=== PATIENT | female | born 1935 | race Caucasian/White ===

== ENCOUNTER 2020-04-02 17:08 | Emergency (ER) | payer MEDICARE, SELFPAY ==
[2020-04-02 17:43] VITALS: BP 105/49; PULSE 100; RESP 15; TEMP 36.6; O2SAT 96; BMI 35.3
--- NOTE | 2020-04-02 18:41 | ED.GENADULT ---
HPI - General Adult General Chief complaint: Overdose Stated complaint: MEDICATION OVERDOSE Time Seen by Provider: 04/02/20 18:36 Source: patient Mode of arrival: ambulatory Limitations: no limitations History of Present Illness HPI narrative: patient states was to take 2.5 mg of Coumadin however misunderstood and took 25 mg of Coumadin approximately 3 hours ago. Patient did not do this For suicidal or homicidal ideations. Patient did not fall. patient denies blood in stool denies vomiting or denies blood in urine Onset (ago): hour(s) ( 3 hours) Severity: mild Related Data Allergies Allergy/AdvReac Type Severity Reaction Status Date / Time amlodipine Allergy Unknown Verified 02/04/20 00:00 lisinopril Allergy Unknown Verified 02/04/20 00:00 acetaminophen AdvReac Unknown VOMITING Unverified 03/18/20 14:56 [From Tylenol-Codeine] Codeine Phosphate Allergy Unknown vomiting Uncoded 02/25/20 00:00 Codeine Sulfate Allergy Unknown Uncoded 02/04/20 00:00 From Tylenol-Codeine AdvReac Unknown VOMITING Uncoded 03/18/20 14:56 Review of Systems Review of Systems: Constitutional : No Weight loss, No Fever, No Chills, No Night Sweats, No Fatigue, No Malaise ENT/Mouth : No Hearing loss, No Ear Pain, No Nasal Congestion, No Sinus Pain, No Hoarseness, No sore throat, No Rhinorrhea, No Swallowing Difficulty Eyes: No Eye Pain, No Swelling, No Redness, No Foreign Body, No Discharge, No Vision Changes Cardiovascular : No Chest Pain, No SOB, No Dyspnea on Exertion, No Orthopnea, No Edema, No Palpitations Respiratory : No Cough, No Sputum, No Wheezing, No Smoke Exposure, No Dyspnea Gastrointestinal : No Nausea, No Vomiting, No Diarrhea, No Constipation, No abdominal Pain, No Hematochezia, No Melena Genitourinary : no irregular bleeding, No Dysuria, No Urinary Frequency, No Hematuria, No Urinary Incontinence, No Urgency, No Flank Pain, No Urinary Flow Changes, No Hesitancy Musculoskeletal : No joint pain, No Myalgias, No Joint Swelling Skin : No Skin Lesions, No rash Neuro : No Weakness, No Numbness, No Paresthesias, No Loss of Consciousness, No Dizziness, No Headache Psych : No Anxiety/Panic, No Depression, No SI/HI/AH/VH, No Social Issues, Heme/Lymph: No Bruising, No Bleeding,No Lymphadenopathy Endocrine : No Polyuria, No Polydipsia, No Temperature Intolerance [facility] Past Medical History Medical History Arrhythmia Cholecystectomy planned High cholesterol HTN (hypertension) Hypothyroid Social History Social History Smoking Status: Never smoker Smoked in Last 30 Days: No Use of substances other than those prescribed or required for medical reasons: No Advance Directives: No Advance Directives Information Provided: Yes Physical Exam Vital Signs and I&O and Narrative: Vital Signs and I&O: Vital Signs Temp 97.9 F 04/02/20 18:50 Pulse 83 04/02/20 18:50 Resp 16 04/02/20 18:50 BP 125/65 04/02/20 18:50 Pulse Ox 98 04/02/20 18:50 Intake & Output 04/02/20 04/02/20 04/03/20 06:59 18:59 06:59 Weight 93.44 kg Body Mass Index 35.3 vital signs reviewed HENMT: Head: Yes normal to inspection Eyes: General: appearance normal, both eyes and all related structures Visual Izaguirre: normal visual izaguirre by confrontation Neck: Neck: Yes normal visual inspection Chest: Chest palpation & inspection: normal inspection of the chest, normal palpation of entire chest wall, normal inspection of the chest and no crepitus Resp: Effort & Inspection: normal respiratory effort, not able to speak in complete sentences, normal respiratory pattern, no audible wheezes and respiratory effort not decreased Cardio: Jugular venous distension: no JVD Palpation: normal PMI Rate: regular rate GI: Inspection: Yes normal to inspection Back/Spine/Pelvis: Thoracic/Lumbar Spine: thoracic and lumbar spine normal to inspection Skin: Rashes: no rashes Neuro: Cranial nerves: Yes CN's II-XII intact bilaterally Extrem: Right upper extremity: normal to inspection Psych: Appearance: grossly normal Course Reevaluation(s) Reevaluation #1: patient INR within normal limits. Patient did take Coumadin several hours before coming in. Usually takes about 48 hours in order to change the INR. No active bleeding. Patient says safe to go home. I discussed the patient need for return to the emergency department in 48 hours which is this Sunday to the emergency department for repeat INR. Patient agrees Time: 20:13 Medical Decision Making Lab Data Labs: Lab Results 04/02/20 04/02/20 04/02/20 Range/Units 19:01 19:30 20:06 PT 27.3 H (10.8-13.0) SEC Whole Blood PT 26.9 H (11.1-13.5) sec INR 2.3 H (0.9-1.1) Whole Blood INR 2.2 H (0.9-1.1) Urine Color YELLOW Urine Appearance CLEAR Urine pH 5.5 (5.0-8.0) Ur Specific Page 1.010 (1.005-1.025) Urine Protein NEG (NEG-TRACE) MG/DL Urine Glucose (UA) NEG (NEG) MG/DL Urine Ketones NEG (NEG) MG/DL Urine Blood NEG (NEG) Urine Nitrite NEG (NEG) Ur Leukocyte Esterase NEG (NEG) Discharge Plan Discharge Clinical Impression: Accidental drug ingestion Instructions: Medication Safety for Older Adults (ED), Warfarin (By mouth) Additional Instructions: you must return to the emergency department this Sunday on April 04 for repeat INR blood work Referrals: Lex Velazco MD [Primary Care Provider] - 3 days
[2020-04-02 18:50] VITALS: BP 125/65; PULSE 83; RESP 16; TEMP 36.6; O2SAT 98
--- NOTE | 2020-04-02 18:58 | PC.NURSE ---
ASSUMED CARE OF PATIENT FROM [facility]. PATIENT TOOK 25 MG OF COUMADIN INSTEAD OF 5 MG TODAY AND 5 MG TOMORROW. PATIENT MISUNDERSTOOD DIRECTIONS FROM PHYSICIANS OFFICE AND TOOK TOO MUCH MEDICATION. RESPIRATORY RATE EQUAL AND UNLABORED
[2020-04-02 19:13] LABS: Glucose Urine UA NEG (NEG); Leukocyte Esterase Urine NEG (NEG); Nitrite Urine NEG (NEG); PH 5.5 (5.0-8.0); Urine Blood NEG (NEG); Urine Ketones NEG (NEG); Urine Protein NEG (NEG-TRACE)
[2020-04-02 19:14] LABS: Appearance Urine CLEAR; Color Urine YELLOW
[2020-04-02 20:00] VITALS: BP 140/65; PULSE 75; RESP 16; TEMP 36.4; O2SAT 95
[2020-04-02 20:03] LABS: INTERNATIONAL NORM RATIO 2.3 (0.9-1.1); Prothrombin Time 27.3 SEC (10.8-13.0)
[2020-04-02 20:10] LABS: Prothrombin Time Whole Bld POC 26.9 sec (11.1-13.5); ~PT, ~INR - Anti Coag Clinic 2.2 (0.9-1.1)
--- NOTE | 2020-04-02 20:17 | PC.NURSE ---
PATIENT WAS ASSISTED TO GET DRESSED AND AMBULATED TO BATHROOM BY THIS PCT.
== END 2020-04-02 20:44 | disposition home or self-care (01) ==
PROVIDERS: Emergency Provider Emergency Medicine; PCP Internal Medicine
DX: T45.511A Poisoning by anticoagulants, accidental (unintentional), initial encounter (principal); Y92.009 Unspecified place in unspecified non-institutional (private) residence as the place of occurrence of the external cause; I10 Essential (primary) hypertension; Z79.01 Long term (current) use of anticoagulants; Z79.899 Other long term (current) drug therapy
CPT/HCPCS: 36415; 81003; 85610; 99284

== ENCOUNTER 2020-04-04 09:30 | Inpatient (IN) | payer MEDICARE, SELFPAY ==
[2020-04-04] VITALS (7 sets, daily range): BP systolic 87–139; BP diastolic 44–78; PULSE 74–105; RESP 16–22; TEMP 35.8–36.4; O2SAT 95–99; BMI 34.2
--- NOTE | 2020-04-04 | CT_ITS ---
EXAMINATION: CT HEAD WITHOUT CONTRAST CLINICAL INFORMATION: Headache. Elevated INR. COMPARISON: None TECHNIQUE: Contiguous axial imaging was performed from the skull base to vertex without intravenous administration of contrast. This CT examination was performed using dose optimization techniques as appropriate, variously including the following: *Automated exposure control *Adjustment of mA and/or kV according to patient size (this includes techniques or standardized protocols for targeted exams where dose is matched to indication/reason for exam; i.e. extremities or head) *Use of iterative reconstruction technique DLP: 628 mGy-cm FINDINGS: There is no evidence of an extra-axial collection. There is no evidence of intra or extra-axial hemorrhage. The ventricles and extra-axial CSF spaces are prominent. There is nonspecific periventricular white matter disease. No mass, mass effect or infarct is seen. There is increased sclerosis of the bilateral frontal bones suggestive of benign frontal hyperostosis interna. There is increased sclerosis of the right mastoid air cells. No fluid or soft tissue in the right mastoid air cells is seen. There is mild membranous soft tissue thickening in the floor of the left maxillary sinus. Paranasal sinuses, mastoid air cells and middle ears are otherwise clear. IMPRESSION: Mild generalized atrophy and nonspecific periventricular white matter disease. No acute findings.
--- NOTE | 2020-04-04 09:57 | ED.WEAKNESS ---
HPI - Weakness General Chief complaint: Recheck/Abnormal Lab/Rx Stated complaint: abnormal lab Time Seen by Provider: 04/04/20 09:47 Related Data Allergies Allergy/AdvReac Type Severity Reaction Status Date / Time amlodipine Allergy Unknown Verified 02/04/20 00:00 lisinopril Allergy Unknown Verified 02/04/20 00:00 acetaminophen AdvReac Unknown VOMITING Unverified 03/18/20 14:56 [From Tylenol-Codeine] Codeine Phosphate Allergy Unknown vomiting Uncoded 02/25/20 00:00 Codeine Sulfate Allergy Unknown Uncoded 02/04/20 00:00 From Tylenol-Codeine AdvReac Unknown VOMITING Uncoded 03/18/20 14:56 Review of Systems Review of Systems: Yes all other systems are reviewed and are negative Constitutional: Constitutional: Reports malaise Eyes: Eyes: Reports no additional eye complaints ENT: Reports system reviewed and no additional complaints, except as documented Cardiovascular: Cardiovascular: Reports no additional cardiovascular complaints Respiratory: Respiratory: Reports no additional respiratory complaints Genitourinary: Genitourinary: Reports no additional female genitourinary complaints Musculoskeletal: Musculoskeletal: Reports no additional musculoskeletal complaints [facility] Past Medical History Medical History Arrhythmia Cholecystectomy planned High cholesterol HTN (hypertension) Hypothyroid Social History Social History Alcohol intake: never Smoking Status: Never smoker Use of substances other than those prescribed or required for medical reasons: No Advance Directives: No Advance Directives Information Provided: No Physical Exam Vital Signs and I&O and Narrative: Vital Signs and I&O: Vital Signs Temp 97.5 F 04/04/20 09:48 Pulse 105 H 04/04/20 09:48 Resp 16 04/04/20 09:48 BP 139/78 04/04/20 09:48 Pulse Ox 96 04/04/20 09:48 Intake & Output 04/03/20 04/04/20 04/04/20 18:59 06:59 18:59 Weight 90.591 kg Body Mass Index 34.2 Const: General: no acute distress Orientation/consciousness: oriented to person, oriented to place, oriented to time and patient oriented x3 HENMT: Head: Yes normal to inspection Ears: hearing grossly normal bilaterally Eyes: General: appearance normal, both eyes and all related structures Conjunctivae: conjunctival abnormal ( Pallor conjunctiva) bilateral Sclerae: scleral abnormal ( pale) bilateral Neck: Neck: Yes normal visual inspection Thyroid: Thyroid normal Chest: Chest palpation & inspection: normal inspection of the chest Breast/axilla inspection: normal inspection of the breasts Resp: Effort & Inspection: normal respiratory effort Auscultation: clear to auscultation bilaterally Cardio: Jugular venous distension: no JVD Rate: regular rate Rhythm: abnormal rhythm regularly irregular GI: Inspection: Yes normal to inspection Neuro: General: oriented to person, oriented to place, oriented to time and patient oriented x3 Cognition (Neuro): normal cognition Extrem: General: Yes normal to inspection and Yes full ROM Course Course Hospital Course: 84-year-old female takes 5 mg of Coumadin for atrial fibrillation, patient yesterday though by accident 25 mg of Coumadin, patient was seen and evaluated in the emergency department yesterday had INR within normal level, patient returned today for recheck INR patient found to have INR of 14 with no active bleeding, patient received 10 mg of vitamin K p.o.. Will admit the patient for further INI serial check then resume the patient back on Coumadin. MDM - Weakness MDM Narrative Medical decision making narrative: Super therapeutic Coumadin due to overdosed accidentally on Coumadin. Medical Records Attestation: I reviewed the patient's medical records. Lab Data Result diagrams: 04/04/20 10:11 04/04/20 10:11 Labs: Lab Results 04/04/20 04/04/20 04/04/20 Range/Units 10:11 10:11 10:11 WBC 13.1 H (4.8-10.8) X10*3/uL RBC 4.30 (4.20-5.50) X10*6/uL Hgb 12.6 (12.0-16.0) g/dl Hct 37.6 (37-47) % MCV 87.4 (80-98) fL MCH 29.3 (27.0-33.0) pg MCHC 33.5 (31.0-35.0) g/dl RDW 17.9 H (11.0-16.0) % Plt Count 360 (160-400) X10*3/uL MPV 11.4 (9.4-12.3) fL Absolute Nucleated RBC 0.000 (0.0-0.012) X10*3/uL Nucleated RBC % (auto) 0.0 (0.0-0.2) /100WBC PT 182.2 H D (10.8-13.0) SEC INR 14.9 H* D (0.9-1.1) APTT 46.8 H (24.1-38.0) SEC Sodium 136 (135-145) mmol/L Potassium 5.2 H (3.3-5.1) mmol/l Chloride 97 (96-108) mmol/L Carbon Dioxide 25 (22-29) mmol/L Anion Gap 19 (12-20) BUN 13 (9-16) mg/dL Creatinine 0.89 (0.5-1.4) mg/dL Estim Creat Clear Calc 51.3 Estimated GFR > 60 Random Glucose 111 (60-115) mg/dL Calcium 8.5 (8.4-10.2) mg/dL Total Bilirubin 4.9 H (0.0-1.0) mg/dL Direct Bilirubin 3.3 H (0.0-0.5) mg/dL AST 118 H (5-31) U/L ALT 70 H (0-31) U/L Alkaline Phosphatase 438 H (39-117) U/L Total Protein 6.8 (6.5-8.0) g/dL Albumin 3.1 L (3.5-5.0) g/dL Lipase 288 H (8-78) U/L Discharge Plan Discharge Clinical Impression: Warfarin-induced coagulopathy Patient Disposition: Admitted As Inpatient
[2020-04-04 10:37] LABS: Hematocrit 37.6 % (37-47); Hemoglobin 12.6 g/dl (12.0-16.0); Mean Corpuscular HGB Conc 33.5 g/dl (31.0-35.0); Mean Corpuscular Hemoglobin 29.3 pg (27.0-33.0); Mean Corpuscular Volume 87.4 fL (80-98); Mean Platelet Volume 11.4 fL (9.4-12.3); Platelet Count 360 X10*3/uL (160-400); Red Cell Distribution Width 17.9 % (11.0-16.0); White Blood Count 13.1 X10*3/uL (4.8-10.8)
[2020-04-04 10:46] LABS: Partial Thromboplastin Time 46.8 SEC (24.1-38.0)
[2020-04-04 10:50] LABS: Prothrombin Time 182.2 SEC (10.8-13.0)
[2020-04-04 10:55] LABS: INTERNATIONAL NORM RATIO 14.9 (0.9-1.1)
[2020-04-04] MEDS: Ibuprofen 600 MG TABLET PO (10:55)
[2020-04-04 11:08] LABS: Anion Gap 19 (12-20); Blood Urea Nitrogen 13 mg/dL (9-16); Carbon Dioxide 25 mmol/L (22-29); Chloride 97 mmol/L (96-108); Glucose Random 111 mg/dL (60-115); Potassium 5.2 mmol/l (3.3-5.1); Sodium 136 mmol/L (135-145); Total Protein 6.8 g/dL (6.5-8.0)
[2020-04-04 11:09] LABS: Alanine Aminotransferase 70 U/L (0-31); Albumin Level 3.1 g/dL (3.5-5.0); Alkaline Phosphatase 438 U/L (39-117); Aspartate Amino Transferase 118 U/L (5-31); Bilirubin Direct 3.3 mg/dL (0.0-0.5); Bilirubin Total 4.9 mg/dL (0.0-1.0); Calcium 8.5 mg/dL (8.4-10.2); Creatinine Clr Calc Pharmacy 51.3; Estimated Glomerular Filt Rate > 60
[2020-04-04 11:21] LABS: Lipase 288 U/L (8-78)
[2020-04-04] MEDS: Phytonadione (Vit K1) Oral 10 MG/ML AMPUL PO ×2 (12:59→13:01)
--- NOTE | 2020-04-04 13:40 | PM.EVENT ---
Event Note Event Note: Patient seen and examined independently and was present during berger portion of E/M service. Agree with midlevel's history, physical, assessment, and plan. 84-year-old female sent in for elevated INR no obvious signs of bleeding status post vitamin K monitor CBC and INR
--- NOTE | 2020-04-04 14:12 | P.HPIM_ITS ---
History of Present Illness Date of Service: 04/04/20 Chief Complaint: abnormal labs This is an 84-year-old female who returns to the emergency department for follow-up of abnormal labs. She was seen in the ED on April 02 after active mentally taking 25 mg of Coumadin instead of 2.5. her INR at that time was within normal limits. She was asked to return for INR recheck today. Today her INR was 14.9. She had no evidence of bleeding. She did have complaints of headache. Brain CT done showed no evidence of intracranial bleed. The remainder of her labs were at her baseline. Decision was made to admit her overnight for observation. Of note patient had recent admission on March 10 for acute on chronic cholecystitis. Cholecystostomy tube was placed by IR guidance on March 11. She had an uncomplicated hospital course was discharged home with visiting nurses on March 13. She was discharged with a course of Augmentin. She had been feeling well until SundayMarch 19. She returned to the ED with decreased appetite, decreased p.o. intake and generalized pruritus. Lab work was significant for acute kidney injury with a serum creatinine of 2.65, hypokalemia and lactic acidosis. Her LFTs were noted to be significantly elevated in obstructive pattern. She underwent a CAT scan of the abdomen which showed dilated and inflammatory changes and thickening around the gallbladder causing likely partial CBD obstruction. An ERCP was attempted but unable to be completed due to difficult anatomy. She underwent an MRCP which showed questionable stricture. She was transferred to [facility] where an ERCP was attempted but also unable to be completed. She underwent IR biliary drainage and was discharged home on March 31. Review of Systems Review of Systems: Yes all other systems are reviewed and are negative Constitutional: Constitutional: Denies chills and Denies fever(s) Cardiovascular: Cardiovascular: Denies chest pain Respiratory: Respiratory: Denies cough [facility] Medical History (Updated 04/04/20 @ 14:25 by MATHEUS Marvin) Atrial fibrillation Breast cancer Cholecystectomy planned Cholecystostomy tube dysfunction Diastolic CHF High cholesterol HTN (hypertension) Hypothyroid NSTEMI (non-ST elevated myocardial infarction) Stomach cancer Uterine cancer Pertinent family history: father - lung cancer sister- ovarian cancer Surgical History (Updated 04/04/20 @ 14:22 by MATHEUS Marvin) History of cardiac catheterization History of partial gastrectomy S/P breast lumpectomy S/P TALYA-BSO (total abdominal hysterectomy and bilateral salpingo-oophorectomy) Social History Alcohol intake: never Smoking Status: Never smoker Use of substances other than those prescribed or required for medical reasons: No Advance Directives: No Advance Directives Information Provided: No Meds Allergies Allergy/AdvReac Type Severity Reaction Status Date / Time amlodipine Allergy Unknown Verified 02/04/20 00:00 lisinopril Allergy Unknown Verified 02/04/20 00:00 acetaminophen AdvReac Unknown VOMITING Unverified 03/18/20 14:56 [From Tylenol-Codeine] Codeine Phosphate Allergy Unknown vomiting Uncoded 02/25/20 00:00 Codeine Sulfate Allergy Unknown Uncoded 02/04/20 00:00 From Tylenol-Codeine AdvReac Unknown VOMITING Uncoded 03/18/20 14:56 Home Medications Medication Instructions Recorded Confirmed Type atorvastatin 1 tab PO BEDTIME 04/04/20 04/04/20 History calcipotriene TOPICAL 04/04/20 History furosemide 1 tab PO DAILY 04/04/20 04/04/20 History metoprolol succinate 1 tab PO DAILY 04/04/20 04/04/20 History warfarin PO 04/04/20 History Physical Exam Vital Signs and Narrative: Vital Signs: Last Vital Signs Temp 97.5 F 04/04/20 09:48 Pulse 105 H 04/04/20 09:48 Resp 16 04/04/20 09:48 BP 139/78 04/04/20 09:48 Pulse Ox 96 04/04/20 09:48 Body Mass Index 34.2 Const: Nutritional Appearance: well nourished Orientation/consciousness: patient oriented x3 HENMT: Head: Yes normocephalic and Yes atraumatic Eyes: Sclerae: sclerae normal Chest: Chest palpation & inspection: normal inspection of the chest Resp: Effort & Inspection: normal respiratory effort and no respiratory distress Auscultation: clear to auscultation bilaterally Cardio: Rate: regular rate Rhythm: regular rhythm GI: Inspection: Yes other (RUQ GB drain, not draining; biliary drain with coffee colored drainage) Palpation (GI): Soft to palpation and nontender Skin: General skin exam: no rashes or lesions noted and jaundice Neuro: General: patient oriented x3 Cranial nerves: Yes CN's II-XII intact bilaterally and Yes Bilaterally intact EOM present Extrem: General: Yes normal to inspection Results Labs Labs: Laboratory Tests 04/04/20 04/04/20 04/04/20 10:11 10:11 10:11 WBC 13.1 H RBC 4.30 Hgb 12.6 Hct 37.6 MCV 87.4 MCH 29.3 MCHC 33.5 RDW 17.9 H Plt Count 360 MPV 11.4 Absolute Nucleated RBC 0.000 Nucleated RBC % (auto) 0.0 PT 182.2 H D INR 14.9 H* D APTT 46.8 H Sodium 136 Potassium 5.2 H Chloride 97 Carbon Dioxide 25 Anion Gap 19 BUN 13 Creatinine 0.89 Estim Creat Clear Calc 51.3 Estimated GFR > 60 Random Glucose 111 Calcium 8.5 Total Bilirubin 4.9 H Direct Bilirubin 3.3 H AST 118 H ALT 70 H Alkaline Phosphatase 438 H Total Protein 6.8 Albumin 3.1 L Lipase 288 H Assessment and Plan (1) Warfarin-induced coagulopathy: Status: Acute this is a 84-year-old female with history of atrial fibrillation on Coumadin, dyslipidemia, diastolic CHF who presents for INR check after accidentally of around eddy taking wrong dose of Coumadin. Coumadin coagulopathy due to accidental ingestion of wrong dose no active bleeding noted s/p 10 mg p.o. vitamin K -follow INR -hold Coumadin atrial fibrillation rate controlled - continue metoprolol - hold Coumadin for elevated INR diastolic CHF euvolemic - continue home dose Lasix HLD Hold statin Elevated LFTs Trending down r/t recent cholecystitis/biliary obstruction code status- DNR this case was discussed with Dr. Hills
[2020-04-04] MEDS: Pantoprazole Sodium 40 MG/10 ML VIAL IVPUSH (17:08)
[2020-04-04] MEDS: Lactated Ringers 1,000 ML 999 ML IVCONT ×2 (17:09→20:26)
[2020-04-04] MEDS: 0.9 % Sodium Chloride Flush 3 ML SYRINGE 2 ML IVFLUSH ×2 (17:11→23:46)
--- NOTE | 2020-04-04 18:48 | PC.NURSE ---
Addendum entered by Kaykay Kent RN 04/04/20 19:59: KCentra & Vit K ordered for Pt. Pt refusing all IV medications. aware of Pt medication refusal. No new orders at this time. Phlebotomy obtained labs, results pending. Report given to oncangie RN. Original Note: Pt arrived to [place] [id number] at 1815. Pt refusing all treatment. MD notified. MD's in to speak with Pt. Pt agreeable at this time to have phlebotomy come back to draw labs. Call out to phlebotomy. Will continue to monitor.
--- NOTE | 2020-04-04 18:50 | PC.NURSE ---
1645- PT ADMITTED TO MED/SURG, IMMEDIATELY HAD BLOODY BM WITH LARGE BLOOD CLOTS. PER HOUSEKEEPER HOME PT HAD ANOTHER BLOODY BM PRIOR TO COMING TO UNIT. PT STATES HAS VOMITED BLOOD, NOT SEEN BY THIS RN. PT FEELS WEAK AND DIZZY. VITALS CHECKED. BP 99/55, PULSE 74, REMAINING WNL. ALICE PELLETIER PA AND DR. PEÑA MADE AWARE. DR. PEÑA AT BEDSIDE. PT TO BE TRANSFERRED TO [facility]. 1710- PT BP RECHECKED 87/44, PULSE 84. LR BOLUS STARTED. PT GIVEN IV PROTONIX PER DR. PEÑA. ICU PA AT BEDSIDE TO ASSESS PT. PT REFUSING ICU CARE, CENTRAL LINE. ICU PA TO ATTEMPT TO GET LARGER GAUGE IV WITH ULTRASOUND. 1735- BP 101/53 PULSE 86. PT'S AND DAUGHTER CALLED BY THIS RN ABOUT PT STATUS. REPORT GIVEN TO [facility] NURSE. 1800- ICU PA UNABLE TO OBTAIN ADDITIONAL IV. PT VERY UPSET, CRYING OUT. REFUSING ALL CARE. DOES NOT WANT BLOOD DRAW, NO MORE IV ATTEMPTS. PT STATES SHE 'JUST WANTS SOMETHING TO PUT HER TO SLEEP'. PT TRANSFERRED TO [facility] BY NURSING FOREIGN CORRESPONDENT. THIS RN CALLED PT DAUGHTER ONCE AGAIN TO UPDATE ON STATUS OF PT AND HER WANTING TO REFUSE ALL CARE. PT'S DAUGHTER TO COME SEE PT, NURSING FOREIGN CORRESPONDENT AWRE. [facility] NURSE UPDATED.
[2020-04-04 19:55] LABS: Hematocrit 31.7 % (37-47); Hemoglobin 10.4 g/dl (12.0-16.0); Mean Corpuscular HGB Conc 32.8 g/dl (31.0-35.0); Mean Corpuscular Hemoglobin 29.3 pg (27.0-33.0); Mean Corpuscular Volume 89.3 fL (80-98); Mean Platelet Volume 11.2 fL (9.4-12.3); Platelet Count 284 X10*3/uL (160-400); Red Blood Count 3.55 X10*6/uL (4.20-5.50); White Blood Count 12.5 X10*3/uL (4.8-10.8)
[2020-04-04] MEDS: Atorvastatin Calcium 40 MG TABLET PO (20:35)
[2020-04-04] MEDS: Acetaminophen 325 MG TABLET 650 MG PO (20:35)
[2020-04-05] VITALS (15 sets, daily range): BP systolic 99–147; BP diastolic 50–74; PULSE 83–108; RESP 16–20; TEMP 36–37.1; O2SAT 91–97; BMI 34.2
--- NOTE | 2020-04-05 01:52 | PM.EVENT ---
Event Note Event Note: Notified patient is refusing at present Fresh Frozen plasma transfusion. I personally talked to the patient regarding current medical status and the need for blood transfusion at present. Patient verbalizes and understands benefits as well as risks involved if not getting the transfusion. Patient at present reports that does not wants any transfusion, does not wants any more blood draws and just wants to be left alone in the room. Curent mental status is awake, alert, oriented x 3. Given patient has mental capacity to take decision at present will hold off on the transfusion but will try again in the am to talk to the patient regarding the need for treatment.
[2020-04-05] MEDS: Morphine Sulfate 2 MG/ML CARTRIDGE 1 MG IVPUSH (03:07)
[2020-04-05] MEDS: 0.9 % Sodium Chloride Flush 3 ML SYRINGE 2 ML IVFLUSH ×2 (03:08→08:45)
[2020-04-05] MEDS: ondansetron HCL 4 MG/2 ML VIAL IVPUSH (05:30)
--- NOTE | 2020-04-05 08:03 | PM.GICN ---
History of Present Illness Data of Consult Service Date: 04/05/20 Requesting physician: Fabricio Hills Primary Care Provider: Lex Velazco MD HPI Reason for consult: Elevated INR with GI Bleeding 84 YF with hypertension, hypothyroidism, nonobstructive CAD and chronic atrial fibrillation on long-term anticoagulation. Pt [place] [facility] [place] after she took 25 mg of Coumadin instead of 2.5 accidentally. Her INR was normal. She was advised to return in 48 hrs to recheck her INR which was 14.9 today. Pt complained of a headache and denied any bleeding. Brain CT done showed no evidence of intracranial bleed. CBC and remaining labs were at her baseline. Decision was made to admit her overnight for observation. She has been having GI Bleeding with multiple BMs per rectum since yesterday evening with initial hypotension which has resolved after administration of IV fluids. Pt has been adamantaly refusing blood draws and management of coagulopathy with IV Vitamin K and FFPs. Pt stated she is tired of all the tests and procedures she has gone through over the last few weeks and does not want to undergo additional treatments. Requesting for comfort measures and medication to end her life. Of note patient had recent admission on March 10 for acute on chronic cholecystitis. Cholecystostomy tube was placed by IR guidance on March 11. She had an uncomplicated hospital course was discharged home with visiting nurses on March 13. She was discharged with a course of Augmentin. She had been feeling well until SundayMarch 19. She returned to the ED with decreased appetite, decreased p.o. intake and generalized pruritus. Lab work was significant for acute kidney injury with a serum creatinine of 2.65, hypokalemia and lactic acidosis. Her LFTs were noted to be significantly elevated in obstructive pattern. She underwent a CAT scan of the abdomen which showed dilated and inflammatory changes and thickening around the gallbladder causing likely partial CBD obstruction. An ERCP was attempted but unable to be completed due to difficult anatomy. She underwent an MRCP which showed questionable stricture. She was transferred to [facility] where an ERCP was attempted but also unable to be completed. She underwent IR biliary drainage and was discharged home on March 31. Review of Systems Review of Systems: Yes Unobtainable due to mental condition Psychiatric: Psychiatric: Reports anxiety, Reports hopelessness, Reports irritability and Reports anhedonia [facility] Past Medical History Medical History (Updated 04/22/20 @ 00:00 by Antonio Jean) Acute blood loss anemia Adjustment disorder with mixed anxiety and depressed mood Anemia Aspiration pneumonia Atrial fibrillation Biliary stricture Breast cancer Cholecystostomy tube dysfunction Diastolic CHF GI bleed High cholesterol History of breast cancer History of gastric cancer HTN (hypertension) Hypothyroid Nausea & vomiting NSTEMI (non-ST elevated myocardial infarction) Psoriasis Restless leg syndrome Transaminitis Uterine cancer Family History Family History (Updated 04/19/20 @ 11:30 by ESTEPHANIA Fine) Father Hypertension Cancer Mother Hypertension Sister Cancer Surgical History Surgical History (Updated 04/19/20 @ 12:38 by Richie Walker MD) History of cardiac catheterization History of partial gastrectomy History of toe surgery S/P breast lumpectomy S/P TALYA-BSO (total abdominal hysterectomy and bilateral salpingo-oophorectomy) Social History Social History Household Members: Spouse Housing: Assisted Living Facility Alcohol intake: never Smoking Status: Former smoker Second Hand Smoke Exposure: No service: No Current occupational status: retired Followaps Allergies Allergy/AdvReac Type Severity Reaction Status Date / Time amlodipine Allergy Unknown Unknown Verified 04/19/20 11:24 lisinopril Allergy Unknown Unknown Verified 04/19/20 11:24 acetaminophen AdvReac Unknown VOMITING Verified 04/19/20 11:24 [From Tylenol-Codeine] Home Medications Medication Instructions Recorded Confirmed Type atorvastatin 1 tab PO BEDTIME 04/04/20 04/16/20 History calcipotriene 1 applic TOPICAL BID 04/04/20 04/16/20 History furosemide 1 tab PO DAILY 04/04/20 04/16/20 History metoprolol succinate 1 tab PO DAILY 04/04/20 04/16/20 History levothyroxine 88 mcg PO QAM 04/16/20 04/17/20 History Physical Exam Vital Signs and I&O and Narrative: Vital Signs and I&O: Vital Signs Temp 98.2 F 04/05/20 07:56 Pulse 102 H 04/05/20 07:56 Resp 20 04/05/20 07:56 BP 112/56 L 04/05/20 07:56 Pulse Ox 97 04/05/20 07:56 Intake & Output 04/04/20 04/05/20 04/05/20 18:59 06:59 18:59 Intake Total 2099 / 2100 Output Total 200 / 200 Balance 1900 / 1900 Urine Output (Aver age ml/kg/hr) 0.18 Weight 199 lb 11.518 oz Intake: Intake, Oral [place] unt 100 / 100 Intake, IV Amoun t 1999 Lactated Ringe rs 1,000 ml @ 999 2000 / 2000 mls/hr IVCONT .Q1H1M ONE Rx#: [id number] Output: Output, Urine Am ount 200 / 200 Other: Number of Bowel Movements 4 Urine Bathroom Urine Color Yellow Last Bowel Movem ent 04/04/20 Stool Bathroom Stool Color Blood Tinged Stool Consistenc y Loose Body Mass Index 34.2 Const: Other: Pt refused to be examined General: awake, anxious and tired appearing; No cooperative Results Labs CBC & Chem 7: 04/13/20 05:35 04/12/20 05:57 Labs: Short CBC 04/04/20 04/04/20 Range/Units 10:11 19:47 WBC 13.1 H 12.5 H (4.8-10.8) X10*3/uL Hgb 12.6 10.4 L (12.0-16.0) g/dl Hct 37.6 31.7 L (37-47) % Plt Count 360 284 (160-400) X10*3/uL BMP 04/04/20 10:11 Sodium 136 Potassium 5.2 H Chloride 97 Carbon Dioxide 25 BUN 13 Creatinine 0.89 Calcium 8.5 Liver Function 04/04/20 Range/Units 10:11 Total Bilirubin 4.9 H (0.0-1.0) mg/dL Direct Bilirubin 3.3 H (0.0-0.5) mg/dL AST 118 H (5-31) U/L ALT 70 H (0-31) U/L Alkaline Phosphatase 438 H (39-117) U/L Albumin 3.1 L (3.5-5.0) g/dL Assessment and Plan (1) GI bleed: Problem details: in setting of Coumadin coagulopathy Status: Inactive (2) Acute blood loss anemia: Status: Inactive (3) Warfarin-induced coagulopathy: Status: Resolved 84 YF with hypertension, hypothyroidism, nonobstructive CAD and chronic atrial fibrillation on long-term anticoagulation. Pt admitted 2 days after accidentally taking 25 mg of Coumadin instead of 2.5. with a supratherapeutic INR of 14.9 yesterday. She has been having GI Bleeding with multiple BMs per rectum since yesterday evening with initial hypotension which has resolved after administration of IV fluids. Pt has been adamantaly refusing blood draws and management of coagulopathy with IV Vitamin K and FFPs. RECOMMENDATIONS: 1. Monitor H & H and prothrombin time if patient agrees. 2. Blood transfusion if hct is less than 25% if pt agrees. 3. Once INR is < 2, can proceed with EGD if pt is willing to undergo the procedure. EGD was planned for today and procedure was cancelled since pt is refusing all treatments and wants to be left alone. Pt stated she is tired of all the tests and procedures she has gone through over the last few weeks and does not want to undergo additional treatments. Requesting for comfort measures and medication to end her life.
[2020-04-05] MEDS: Morphine Sulfate 2 MG/ML CARTRIDGE IVPUSH ×2 (08:47→18:10)
--- NOTE | 2020-04-05 08:53 | MHC.PIE ---
Addendum entered by Edwin Jacob RN 04/05/20 09:09: WHEN FFP TRANFUSION WAS REFUSED, FFP UNIT WAS QUICKLY RETURNED TO BLOOD BANK AND BLOOD BANK NOTIFIED OF REFUSAL. Addendum entered by Edwin Jacob RN 04/05/20 09:06: DURING VOMITING EPISODE, PATIENT HR WENT UP TO 180 ATRIAL FIBRILLATION BRIEFLY; THEN BRIEFLY IN THE 140-150 RANGE AFTERWARDS, MD NOTIFIED. HR MOSTLY 100-105 RANGE OVERNIGHT. PATIENT ALSO HAD OCCASSIONAL TRIPLETS OF PVCS, AT 00:00 AND 02:00 APPROXIMATELY, AND A QUADRUPLET ABOUT 0500. MD NOTIFIED. Original Note: P: AT 00:22, PATIENT REFUSED FFP, DESPITE HAVING PREVIOUSLY CONSENTED TO PLASMA TRANFUSION WHILE SPEAKING WITH MD. P: PATIENT REPEATEDLY STATING THAT SHE JUST WANTS TO BE MADE COMFORTABLE AND ALLOWED TO . P: REFUSING TO PERMIT ADDITIONAL LARGER IV ACCESS TO BE OBTAINED. P: AT 00:22, WHEN ASKED WHAT BEING MADE COMFORTABLE MEANS TO PATIENT, PATIENT REPORTS SHE HAS BACK PAIN AND WANTS TO BE TREATED FOR THAT, BUT SHE ALSO REPORTS NOT WANTING TO BE TREATED ANY MORE WITH ANYTHING THAT WILL PROLONG HER LIFE. P: PATIENT P: AT 04:00, PATIENT REFUSING TO PERMIT VITAL SIGNS TO BE TAKEN. I: ASSESS PATIENT I: NOTIFY MD I: ASK MD TO CONTACT PATIENT'S DAUGHTER I: ASK MD TO COME TO BEDSIDE TO ASSESS PATIENT. E: PATIENT IS ALERT, ORIENTED, ANXIOUS. HAS BEEN HAVING NUMEROUS--9 TIMES SINCE 19:00--BLOODY BOWEL MOVEMENTS. SHE ALSO HAS BACK PAIN. MD WAS NOTIFIED AND PATIENT WAS TREATED WITH IV MORPHINE X1 DOSE, AND THIS, PER THE PATIENT, WAS NOT FELT AND DID NOT REDUCE HER PAIN 10/10 IN HER BACK; PATIENT DID BECOME NAUSEOUS AND VOMITED AFTER MORPHINE, HOWEVER, AND WAS TREATED WITH IV PRN ZOFRAN WITH GOOD EFFECT. NOTIFIED DR. PEÑA THIS AM ABOUT THIS AND HE PLANS TO FURTHER ADJUST PAIN MEDICATIONS. PATIENT'S DAUGHTER, ANGELIKA, WAS NOTIFIED AND WAS ASKED TO COME IN TO SPEAK WITH HER MOTHER AND TO CONSULT WITH THE DOCTORS ABOUT HER PLAN OF CARE. ULCIAUGHER, ANGELIKA WAS UPDATED ABOUT PATIENT'S CONDITION AND HER VARIOUS REFUSALS OF COMPONENTS OF CARE. CONTINUES TO REFUSE LABS, VITALS, AND BLOOD TRANSFUSIONS THIS MORNING. MD ORDERED PSYCH EVAL TODAY TO DETERMINE PATIENT'S COMPETENCE.
--- NOTE | 2020-04-05 09:39 | P.CDIC_ITS ---
CDI Concurrent Query Service Date: 04/05/20 Documentation Clarification: Please clarify if you are treating a proba ble/suspected/likely or confirmed: Lab findings: Hyperkalemia Please specify if known Provider Response: Other Other Diagnosis: mild hyperkalemia PLEASE DO NOT DELETE/MODIFY EXISTING CONTENT Additional information is needed in order to code to the highest accuracy and appropriate Severity of Illness (SOI). Please clarify the information noted below in your progress notes and discharge summary. Risk Factors/Clinical Indicators/Treatments LAB FINDINGS: 5.2 H IV Fluids. CDS: Aniyah Elder CCS, CDIS Contact Number: [phone] Please Review the information above and exercise your independent professional judgment in responding to the query. If you concur, pleas document in the PROGRESS NOTES and DISCHARGE SUMMARY. If you do not agree with the query, please document in the query above. THIS QUERY IS PART OF THE PERMANENT MEDICAL RECORD
--- NOTE | 2020-04-05 10:24 | MHC.CM.PN ---
IMM 04/05/20 Female 84 DX Abnormal lab. Lives with Spouse. Recent admit March with Acute transfer [facility] [place] for Chol[place]. Pt intially came to aaer report of ingesting 10 tabs of coumadin 2.5mg dose. Labs were obtain Pt f/u ER INR 14. Pt admitted but refusing treatment at this time. A psych consult has been ordered for SI. DC plan TBD. CM will follow.
--- NOTE | 2020-04-05 10:34 | HO.PM.IMPN ---
Subjective Subjective Date of Service: 04/05/20 Interval History: had BRBPR and blood in vomit yesterday, but was refusing all treatment, now more agreeable, continues to have brbpr Cardiovascular Cardiovascular: Reports no additional cardiovascular complaints Respiratory Respiratory: Reports no additional respiratory complaints Physical Exam Vital Signs and I&O and Narrative: Vital Signs and I&O: Vital Signs Temp 98.2 F 04/05/20 07:56 Pulse 102 H 04/05/20 07:56 Resp 16 04/05/20 10:31 BP 112/56 L 04/05/20 07:56 Pulse Ox 97 04/05/20 07:56 Intake & Output 04/04/20 04/05/20 04/05/20 18:59 06:59 18:59 Intake Total 2100 / 2100 Output Total 250 / 250 Balance 1850 / 1850 Urine Output (Aver age ml/kg/hr) 0.18 Weight 90.591 kg Intake: Intake, Oral [place] unt 100 / 100 Intake, IV Amoun t 1999 / 1999 Lactated Ringe rs 1,000 ml @ 999 2000 / 2000 mls/hr IVCONT .Q1H1M ONE Rx#: [id number] Output: Output, Urine Am ount 200 / 200 Output, Emesis A mount 50 / 50 Other: Number of Bowel Movements 4 Urine Bathroom Urine Color Yellow Last Bowel Movem ent 04/04/20 Stool Bathroom Stool Color BLOOD/BELL Stool Consistenc y Mushy Emesis Color Clear Body Mass Index 34.2 General: AO X 3, agitated, juandice Resp: CTA bilateral CVS: S1,S2,RRR GI: soft, non tender, non distended Neuro: motor grossly intact Psych: appears to have good insight, but expressing that she does not want treatement because she wants to Objective Data Current Medications Generic Name Dose Route Start Last Admin Trade Name Freq PRN Reason Stop Dose Admin Acetaminophen 650 mg 04/04/20 20:31 04/04/20 20:35 Acetaminophen 325 Mg Tablet PO 650 mg Q6H PRN Administration Pain and Fever Atorvastatin Calcium 40 mg 04/04/20 21:00 04/04/20 20:35 Atorvastatin Calcium 40 Mg Tablet PO 40 mg BEDTIME DEE Administration Docusate Sodium 100 mg 04/04/20 16:40 Docusate Sodium 100 Mg Capsule PO DAILY PRN Constipation Lorazepam 0.5 mg 04/05/20 08:05 Lorazepam 0.5 Mg Tablet PO Q4H PRN anxiety Metoprolol Succinate 100 mg 04/05/20 09:00 04/05/20 08:46 Metoprolol Succinate Er 100 Mg Tab.Er.24h PO Not Given DAILY [facility] Protocol Morphine Sulfate 2 mg 04/05/20 08:05 04/05/20 08:47 Morphine Sulfate 2 Mg/Ml Cartridge IVPUSH 2 mg Q3H PRN Administration pain Morphine Sulfate 15 mg 04/05/20 08:05 Morphine Sulfate Immed Release 15 Mg Tablet PO Q4H PRN pain Ondansetron HCl 4 mg 04/04/20 16:40 04/05/20 05:30 Ondansetron Hcl 4 Mg/2 Ml Vial IVPUSH 4 mg Q8H PRN Administration Nausea and Vomiting Pantoprazole Sodium 40 mg 04/05/20 06:30 04/04/20 17:08 Pantoprazole Sodium 40 Mg/10 Ml Vial IVPUSH 40 mg BID@0630,1630 [facility] Administration Sodium Chloride 2 ml 04/04/20 16:40 04/05/20 08:46 0.9 % Sodium Chloride Flush 3 Ml Syringe IVFLUSH Not Given QSHIFT DEE Sodium Chloride 2 ml 04/05/20 00:00 04/05/20 08:45 0.9 % Sodium Chloride Flush 3 Ml Syringe IVFLUSH 2 ml QSHIFT [facility] Administration Labs CBC & Chem 7: 04/05/20 14:13 04/05/20 14:12 Labs: Laboratory Results - last 24 hr 04/04/20 04/04/20 04/04/20 10:11 10:11 10:11 MCV 87.4 MCH 29.3 MCHC 33.5 RDW 17.9 H Plt Count 360 MPV 11.4 Absolute Nucleated RBC 0.000 Nucleated RBC % (auto) 0.0 PT 182.2 H D INR 14.9 H* D APTT 46.8 H Anion Gap 19 Estim Creat Clear Calc 51.3 Estimated GFR > 60 Random Glucose 111 Calcium 8.5 Total Bilirubin 4.9 H Direct Bilirubin 3.3 H AST 118 H ALT 70 H Alkaline Phosphatase 438 H Total Protein 6.8 Albumin 3.1 L Lipase 288 H Blood Type Antibody Screen Crossmatch 04/04/20 04/04/20 19:40 19:47 MCV 89.3 MCH 29.3 MCHC 32.8 RDW 18.0 H Plt Count 284 MPV 11.2 Absolute Nucleated RBC 0.000 Nucleated RBC % (auto) 0.0 PT INR APTT Anion Gap Estim Creat Clear Calc Estimated GFR Random Glucose Calcium Total Bilirubin Direct Bilirubin AST ALT Alkaline Phosphatase Total Protein Albumin Lipase Blood Type A Positive Antibody Screen NEGATIVE Crossmatch See Detail Assessment and Plan (1) Warfarin-induced coagulopathy: Status: Acute (2) Acute blood loss anemia: Status: Acute (3) GI bleed: Status: Acute Assessment and Plan: this is a 84-year-old female with history of atrial fibrillation on Coumadin, dyslipidemia, diastolic CHF who presents for INR check after accidentally of around eddy taking wrong dose of Coumadin. acute blood loss anemia due to supratherapeutic inr from reported accidental coumadin overdose initially patient was refusing all labs, treatements, she did get 10mg po vitamin k yesterday now agreeable to some limited management such as labs, and minor interventions. inr still 14, will reorder vit k 10mg iv and FFPs, hgb down to 9, will hold off on transfusion for now (patient prefers restrictive if possible), monitor h and h atrial fibrillation holding metoprolol diastolic CHF lasix held HLD can hold statin Elevated LFTs Trending down d/t recent cholecystitis/biliary obstruction /DNI code status- DNR
[2020-04-05 15:13] LABS: Basophils Percent Auto 0.2 % (0-2); Eosinophils Percent Auto 0.1 % (0-4); Hematocrit 27.8 % (37-47); Imm Gran Abs Auto 0.13 X10*3/uL (0.00-0.03); Imm Gran Pct Auto 0.6 % (0.0-0.4); Lymphocytes Absolute Auto 0.9 X10*3/uL (1.2-4.9); Lymphocytes Percent Auto 4.2 % (20-40); MANUAL DIFF FLAG SCAN; Mean Corpuscular HGB Conc 32.4 g/dl (31.0-35.0); Mean Corpuscular Volume 89.7 fL (80-98); Mean Platelet Volume 11.7 fL (9.4-12.3); Monocytes Absolute Auto 0.8 X10*3/uL (0.1-1.2); Monocytes Percent Auto 3.7 % (2-11); Neutrophils Absolute Auto 19.7 X10*3/uL (2.0-8.3); Neutrophils Percent Auto 91.2 % (45-73); Platelet Count 309 X10*3/uL (160-400); Red Cell Distribution Width 18.3 % (11.0-16.0); SCAN SMEAR FLAG 1; White Blood Count 21.7 X10*3/uL (4.8-10.8)
[2020-04-05 15:26] LABS: Prothrombin Time 181.3 SEC (10.8-13.0)
[2020-04-05 15:28] LABS: INTERNATIONAL NORM RATIO 14.8 (0.9-1.1)
[2020-04-05 15:34] LABS: SLIDE REVIEW VERIFIED
--- NOTE | 2020-04-05 15:49 | P.CNPS_ITS ---
History of Present Illness Chief Complaint: abnormal lab Reason for Consult: Capacity to make medical decisions Pt refusing all care Requesting physician: Fabricio Hills Discussed with referring provider: Yes Sources of Information: patient interviewed and chart reviewed HPI Narrative: Patient is an 84 year old female with complex medical history, currently medically admitted after unintentional overdose of coumadin. Consult requested as patient has been refusing medical interventions and stating that she wants to be left alone to . Question if capacity is impaired by possible suicidality. Pt seen in room 470. and son present during interview. Pt initially sleeping upon arrival, but opened her eyes and fully participated in interview. Patient reporting that she wants to go to sleep and not wake up, she identifies feeling overwhelmed by medical interventions and admissions as the main precipitant. She is tearful in describing this. She is able to verbalize frustration with family who wants her to get treatments, and even kicked her daughter out of her room earlier today. She denies that the medication overdose was intentional and reports that she really started feeling this way once she got here because I'm just so sick of it, it's always one thing after another...this is too much...this is not living . She denies any plan or intent at time of interview. She denied feeling this way before. She was quite tearful in stating that she did not want to be transferred ot [facility] as she reports a negative experience there during recent admission. After allowing patient some time to vent and process her frustrations and anxiety, she was agreeable to reviewing treatment plan with her provider and consider interventions. Hospitalist, Dr. Hills and this gag writer met with patient and plan was explained to her. She agreed to have lab draw and based on results would hear treatment plan after that. Pt also verbalized that pain is being better controlled today and she was grateful for that. Past Psychiatric History: Not reviewed Medical Evaluation Reviewed: Yes Personal & Social History: Patient is with at least 2 adult children and all appear to be supportive and involved in her care Review of Systems Psychiatric: Reports anxiety, Reports hopelessness, Reports irritability and Reports anhedonia [facility] Medical History (Updated 04/05/20 @ 16:20 by Debi Norton CNP) Atrial fibrillation Breast cancer Cholecystectomy planned Cholecystostomy tube dysfunction Diastolic CHF High cholesterol HTN (hypertension) Hypothyroid NSTEMI (non-ST elevated myocardial infarction) Psoriasis Restless leg syndrome Stomach cancer Uterine cancer Surgical History (Updated 04/05/20 @ 14:01 by Luz Hoyt MD) History of cardiac catheterization History of partial gastrectomy S/P breast lumpectomy S/P TALYA-BSO (total abdominal hysterectomy and bilateral salpingo-oophorectomy) Diagnostics Vital Signs (24Hr): Vital Signs - 24 hr 04/04/20 16:49 04/04/20 17:10 04/04/20 17:35 Temperature 96.5 F L Pulse Rate 74 84 86 Respiratory Rate 22 H Blood Pressure 99/55 L 87/44 L 101/53 L Pulse Oximetry 98 04/04/20 18:23 04/04/20 20:00 04/05/20 00:00 Temperature 97.0 F 97.3 F 96.8 F Pulse Rate 101 H 99 Respiratory Rate 18 16 16 Blood Pressure 119/63 112/58 L 114/60 Pulse Oximetry 98 95 92 04/05/20 07:56 04/05/20 08:47 04/05/20 10:31 Temperature 98.2 F Pulse Rate 102 H Respiratory Rate 20 18 16 Blood Pressure 112/56 L Pulse Oximetry 97 04/05/20 11:53 04/05/20 12:00 Temperature 98.4 F Pulse Rate 84 Respiratory Rate 18 Blood Pressure 128/60 Pulse Oximetry 96 96 Body Mass Index 34.2 Labs Results: 04/05/20 14:13 04/04/20 10:11 Labs: Laboratory Results - last 48 hr 04/04/20 04/04/20 04/04/20 10:11 10:11 10:11 WBC 13.1 H RBC 4.30 Hgb 12.6 Hct 37.6 MCV 87.4 MCH 29.3 MCHC 33.5 RDW 17.9 H Plt Count 360 MPV 11.4 Immature Gran % (Auto) Neut % (Auto) Lymph % (Auto) [place] % (Auto) Eos % (Auto) Baso % (Auto) Neut # (Auto) Lymph # (Auto) [place] # (Auto) Eos # (Auto) Baso # (Auto) Abs Immat Gran (auto) Absolute Nucleated RBC 0.000 Nucleated RBC % (auto) 0.0 Smear Tech's Comments PT 182.2 H D INR 14.9 H* D APTT 46.8 H Sodium 136 Potassium 5.2 H Chloride 97 Carbon Dioxide 25 Anion Gap 19 BUN 13 Creatinine 0.89 Estim Creat Clear Calc 51.3 Estimated GFR > 60 Random Glucose 111 Calcium 8.5 Total Bilirubin 4.9 H Direct Bilirubin 3.3 H AST 118 H ALT 70 H Alkaline Phosphatase 438 H Total Protein 6.8 Albumin 3.1 L Lipase 288 H Blood Type Antibody Screen Crossmatch 04/04/20 04/04/20 04/05/20 19:40 19:47 14:11 WBC 12.5 H RBC 3.55 L Hgb 10.4 L Hct 31.7 L MCV 89.3 MCH 29.3 MCHC 32.8 RDW 18.0 H Plt Count 284 MPV 11.2 Immature Gran % (Auto) Neut % (Auto) Lymph % (Auto) [place] % (Auto) Eos % (Auto) Baso % (Auto) Neut # (Auto) Lymph # (Auto) [place] # (Auto) Eos # (Auto) Baso # (Auto) Abs Immat Gran (auto) Absolute Nucleated RBC 0.000 Nucleated RBC % (auto) 0.0 Smear Tech's Comments PT 181.3 H INR 14.8 H* APTT Sodium Potassium Chloride Carbon Dioxide Anion Gap BUN Creatinine Estim Creat Clear Calc Estimated GFR Random Glucose Calcium Total Bilirubin Direct Bilirubin AST ALT Alkaline Phosphatase Total Protein Albumin Lipase Blood Type A Positive Antibody Screen NEGATIVE Crossmatch See Detail 04/05/20 14:13 WBC 21.7 H RBC 3.10 L Hgb 9.0 L Hct 27.8 L MCV 89.7 MCH 29.0 MCHC 32.4 RDW 18.3 H Plt Count 309 MPV 11.7 Immature Gran % (Auto) 0.6 H Neut % (Auto) 91.2 H Lymph % (Auto) 4.2 L [place] % (Auto) 3.7 Eos % (Auto) 0.1 Baso % (Auto) 0.2 Neut # (Auto) 19.7 H Lymph # (Auto) 0.9 L [place] # (Auto) 0.8 Eos # (Auto) 0.0 Baso # (Auto) 0.0 Abs Immat Gran (auto) 0.13 H Absolute Nucleated RBC 0.000 Nucleated RBC % (auto) 0.0 Smear Tech's Comments VERIFIED PT INR APTT Sodium Potassium Chloride Carbon Dioxide Anion Gap BUN Creatinine Estim Creat Clear Calc Estimated GFR Random Glucose Calcium Total Bilirubin Direct Bilirubin AST ALT Alkaline Phosphatase Total Protein Albumin Lipase Blood Type Antibody Screen Crossmatch Mental Status Exam Mental Status Exam Patient Appearance: Appropriate Patient Orientation: Person, Place, Time and Situation Level of Consciousness: Awake Patient Behavior: Appropriate and Anxious Mood Description: Angry Affect Description: Anxious and Sad Patient Cognition Impaired: No Speech Pattern: Clear Memory Description: Intact Hallucinations: None Delusions: Not Present Thought Process: Intact and Goal Oriented Thought Content: positive for Goal Oriented and positive for Linear Depressive Symptoms: Increased Anxiety, Increased Irritability, Hopelessness, Unhappiness and Thoughts of /Suicide Judgement: Fair Medications Medications Current Medications Generic Name Dose Route Start Last Admin Trade Name Freq PRN Reason Stop Dose Admin Acetaminophen 650 mg 04/04/20 20:31 04/04/20 20:35 Acetaminophen 325 Mg Tablet PO 650 mg Q6H PRN Administration Pain and Fever Atorvastatin Calcium 40 mg 04/04/20 21:00 04/04/20 20:35 Atorvastatin Calcium 40 Mg Tablet PO 40 mg BEDTIME DEE Administration Docusate Sodium 100 mg 04/04/20 16:40 Docusate Sodium 100 Mg Capsule PO DAILY PRN Constipation Phytonadione 10 mg/ Sodium 51 mls @ 51 mls/hr 04/05/20 15:37 Chloride IV 04/05/20 15:38 ONCE ONE Prothrombin Complex Concent ( 160 mls @ 480 mls/hr 04/05/20 15:38 Human) 4,000 unit/ IV IV 04/05/20 15:57 Miscellaneous Supplies ONCE ONE Lorazepam 0.5 mg 04/05/20 08:05 Lorazepam 0.5 Mg Tablet PO Q4H PRN anxiety Metoprolol Succinate 100 mg 04/05/20 09:00 04/05/20 08:46 Metoprolol Succinate Er 100 Mg Tab.Er.24h PO Not Given DAILY [facility] Protocol Morphine Sulfate 2 mg 04/05/20 08:05 04/05/20 08:47 Morphine Sulfate 2 Mg/Ml Cartridge IVPUSH 2 mg Q3H PRN Administration pain Morphine Sulfate 15 mg 04/05/20 08:05 Morphine Sulfate Immed Release 15 Mg Tablet PO Q4H PRN pain Ondansetron HCl 4 mg 04/04/20 16:40 04/05/20 05:30 Ondansetron Hcl 4 Mg/2 Ml Vial IVPUSH 4 mg Q8H PRN Administration Nausea and Vomiting Pantoprazole Sodium 40 mg 04/05/20 06:30 04/04/20 17:08 Pantoprazole Sodium 40 Mg/10 Ml Vial IVPUSH 40 mg BID@0630,1630 [facility] Administration Sodium Chloride 2 ml 04/04/20 16:40 04/05/20 08:46 0.9 % Sodium Chloride Flush 3 Ml Syringe IVFLUSH Not Given QSHIFT DEE Sodium Chloride 2 ml 04/05/20 00:00 04/05/20 08:45 0.9 % Sodium Chloride Flush 3 Ml Syringe IVFLUSH 2 ml QSHIFT DEE Administration Allergies Allergies Allergy/AdvReac Type Severity Reaction Status Date / Time amlodipine Allergy Unknown Unknown Verified 04/05/20 04:24 lisinopril Allergy Unknown Unknown Verified 04/05/20 04:24 acetaminophen AdvReac Unknown VOMITING Verified 04/05/20 04:24 [From Tylenol-Codeine] Codeine Phosphate Allergy Unknown vomiting Uncoded 04/05/20 04:24 Codeine Sulfate Allergy Unknown Unknown Uncoded 04/05/20 04:24 From Tylenol-Codeine AdvReac Unknown VOMITING Uncoded 04/05/20 04:24 Assessment & Plan Assessment & Plan (1) Adjustment disorder with mixed anxiety and depressed mood: Status: Acute Code(s): F43.23 - Adjustment disorder with mixed anxiety and depressed mood Recommendations: * Supportive listening and acknowledge patient's fears and anxiety--provide reassurance as appropriate * Cluster care as much as possible * reconsult if necessary Greater than 50% of the session was spent on counseling and/or coordination of care
[2020-04-05 15:56] LABS: Alanine Aminotransferase 55 U/L (0-31); Albumin Level 2.7 g/dL (3.5-5.0); Alkaline Phosphatase 351 U/L (39-117); Anion Gap 15 (12-20); Aspartate Amino Transferase 97 U/L (5-31); Bilirubin Total 3.8 mg/dL (0.0-1.0); Blood Urea Nitrogen 23 mg/dL (9-16); Calcium 7.8 mg/dL (8.4-10.2); Carbon Dioxide 27 mmol/L (22-29); Chloride 98 mmol/L (96-108); Creatinine Clr Calc Pharmacy 31.5; Estimated Glomerular Filt Rate 34; Glucose Random 148 mg/dL (60-115); Potassium 4.1 mmol/l (3.3-5.1); Sodium 136 mmol/L (135-145); Total Protein 5.4 g/dL (6.5-8.0)
[2020-04-05] MEDS: Phytonadione (Vit K1) 10 MG in 0.9 % Sodium Chloride 50 ML 51 MG IV (17:38)
[2020-04-05] MEDS: Pantoprazole Sodium 40 MG/10 ML VIAL IVPUSH (17:54)
--- NOTE | 2020-04-05 20:34 | PC.NURSE ---
Dr. Hills notified at 1600 about Kcentra need to be administered in ICU,unable to administer in telemetry unit, came up spoke with patient and family,drug will not be administered at this time
[2020-04-05 21:57] LABS: Hematocrit 23.5 % (37-47); Hemoglobin 7.9 g/dl (12.0-16.0)
[2020-04-05] MEDS: Atorvastatin Calcium 40 MG TABLET PO (22:11)
[2020-04-05] MEDS: Morphine Sulfate Immed Release 15 MG TABLET PO (22:12)
--- NOTE | 2020-04-05 23:33 | PC.NURSE ---
PT 181.3 INR 14.8reported by ANGELA Hills aware E-VIT K to be given to patient,FFP orders pending
--- NOTE | 2020-04-05 23:36 | PC.NURSE ---
Patient tolerated vit k,tolerated first unit of plasma ,no reaction
--- NOTE | 2020-04-05 23:36 | PC.NURSE ---
P-unable to start new IV I-nursing program supervisor unable to start new IV also E-need to use #22 in left handfor transfusions,Dr. Hills made aware earlier
[2020-04-06] VITALS (10 sets, daily range): BP systolic 85–145; BP diastolic 44–74; PULSE 78–118; RESP 16–20; TEMP 36.3–36.8; O2SAT 2–99
[2020-04-06] MEDS: 0.9 % Sodium Chloride Flush 3 ML SYRINGE 2 ML IVFLUSH ×3 (00:15→19:14)
--- NOTE | 2020-04-06 04:00 | PC.NURSE ---
care assumed @ 2300- pt to have 2 more units of ffp as ordered, 2 units ffp flagging to be given. pt has a 22g iv in left hand that is no longer working, swollen painful to touch. dr. barros notified, pt agitated and frustrated that multiple people have tried for iv access, as well as the lab for draws and its the middle of the night i need to be left alone, i dont want any of this . pt currently refusing care/treatment/ffp. dr barros made aware, per prior rn multiple nurses have tried to obtain iv access as well as ed rn's in prior shifts. AM labs, per dr barros will see what AM labs are prior to further interventions. pt aware and agreeable to plan of care.
[2020-04-06 06:34] LABS: MANUAL DIFF FLAG NO
[2020-04-06 06:51] LABS: INTERNATIONAL NORM RATIO 1.5 (0.9-1.1); Prothrombin Time 17.8 SEC (10.8-13.0)
[2020-04-06 06:55] LABS: Basophils Percent Auto 0.2 % (0-2); Eosinophils Absolute Auto 0.1 X10*3/uL (0.0-0.4); Eosinophils Percent Auto 0.6 % (0-4); Hematocrit 22.5 % (37-47); Hemoglobin 7.4 g/dl (12.0-16.0); Imm Gran Abs Auto 0.11 X10*3/uL (0.00-0.03); Imm Gran Pct Auto 0.8 % (0.0-0.4); Lymphocytes Absolute Auto 1.5 X10*3/uL (1.2-4.9); Lymphocytes Percent Auto 11.4 % (20-40); Mean Corpuscular HGB Conc 32.9 g/dl (31.0-35.0); Mean Corpuscular Volume 88.2 fL (80-98); Mean Platelet Volume 11.8 fL (9.4-12.3); Monocytes Percent Auto 7.9 % (2-11); Neutrophils Absolute Auto 10.3 X10*3/uL (2.0-8.3); Neutrophils Percent Auto 79.1 % (45-73); Platelet Count 303 X10*3/uL (160-400); Red Blood Count 2.55 X10*6/uL (4.20-5.50); Red Cell Distribution Width 17.9 % (11.0-16.0)
[2020-04-06 07:13] LABS: Anion Gap 14 (12-20); Blood Urea Nitrogen 28 mg/dL (9-16); Calcium 7.5 mg/dL (8.4-10.2); Carbon Dioxide 25 mmol/L (22-29); Chloride 99 mmol/L (96-108); Creatinine Clr Calc Pharmacy 35.9; Estimated Glomerular Filt Rate 40; Glucose Fasting 122 mg/dL (60-99); Potassium 3.9 mmol/l (3.3-5.1); Sodium 134 mmol/L (135-145)
--- NOTE | 2020-04-06 10:24 | HO.POSTANES ---
Post Anesthesia Evaluation Post Anesthesia Evaluation Vital Signs: Vital Signs Temp Pulse Resp BP Pulse Ox 04/06/20 08:00 97.7 F 98 16 104/55 L 99 04/06/20 03:51 97.4 F 98 18 102/53 L 04/06/20 00:00 97.5 F 105 H 18 145/74 H 93 04/05/20 22:58 96 04/05/20 22:47 98.8 F 83 20 100/56 L Anesthesia: Monitored Mental Status: Awake Pain Control: Satisfactory Nausea/Vomiting: None Hydration: Adequate Anesthesia-Related Issues: No Anes. Related Issues
--- NOTE | 2020-04-06 13:24 | PC.NURSE ---
MD notified of blood pressure 85/52 prior to administering RBC. MD gave permission to administer blood and continue to monitor. Pt denies lightheadedness or dizziness at this time.
[2020-04-06] MEDS: Morphine Sulfate Immed Release 15 MG TABLET PO ×2 (15:36→22:39)
--- NOTE | 2020-04-06 15:39 | HO.PM.IMPN ---
Subjective Subjective Date of Service: 04/06/20 Interval History: a seen and evaluated this morning Feels comfortable, denies any fever or chills Mildly lethargic and tired No reported bleeding overnight No other overnight events Review of Systems Review of Systems: Yes all other systems are reviewed and are negative Constitutional Constitutional: Reports fatigue and Reports lethargy Endocrine Endocrine: Reports fatigue Physical Exam Vital Signs and I&O and Narrative: Vital Signs and I&O: Vital Signs Temp 98.2 F 04/06/20 15:19 Pulse 78 04/06/20 15:19 Resp 20 04/06/20 15:19 BP 98/53 L 04/06/20 15:19 Pulse Ox 99 04/06/20 15:19 Intake & Output 04/05/20 04/06/20 04/06/20 18:59 06:59 18:59 Intake Total 420 / 1774 1354 / 1774 180 / 180 Output Total 850 / 1062 212 / 1062 80 / 80 Balance -430 / 712 1142 / 712 100 / 100 Urine Output (Aver age ml/kg/hr) 0.78 0.00 0.00 Weight 90.5 kg Intake: Intake, Oral [place] unt 420 / 1420 1000 / 1420 180 / 180 Intake (Blood Pr oduct) Amount 303 / 303 0 / 0 Red Blood Cell s (E0336) Unit 0 / 0 [id number] Thawed Plasma (E2720) Unit 303 / 303 [id number] Intake, IV Amoun t Phytonadione ( Vit K1) 10 mg In 0.9 % Sodium C hloride 50 ml @ 51 mls/hr IV O NCE ONE Rx#: [id number] Output: Output, Urine Am ount 850 / 852 2 / 852 Output, Drainage Amount 210 / 210 80 / 80 Left 210 / 210 80 / 80 Other: Meal Refused Yes No Breakfast % Eate n 0% 100% Lunch % Eaten 50% Number of Unmeas ured Voids 1 Urine Bathroom Bathroom Urine Color Bloody Yellow Stool Bathroom Stool Color Blood Tinged Stool Consistenc y Loose Body Mass Index 34.2 Const: General: cooperative and healthy appearing Orientation/consciousness: oriented to person and oriented to place Neck: Neck: Yes normal visual inspection and Yes full ROM Resp: Effort & Inspection: normal respiratory effort Auscultation: clear to auscultation bilaterally Cardio: Jugular venous distension: no JVD Rate: regular rate Heart sounds: S1 normal heart sound present and S2 normal heart sound present Skin: General skin exam: no rashes or lesions noted Neuro: General: oriented to person and oriented to place Objective Data Current Medications Generic Name Dose Route Start Last Admin Trade Name Freq PRN Reason Stop Dose Admin Acetaminophen 650 mg 04/04/20 20:31 04/04/20 20:35 Acetaminophen 325 Mg Tablet PO 650 mg Q6H PRN Administration Pain and Fever Atorvastatin Calcium 40 mg 04/04/20 21:00 04/05/20 22:11 Atorvastatin Calcium 40 Mg Tablet PO 40 mg BEDTIME DEE Administration Docusate Sodium 100 mg 04/04/20 16:40 Docusate Sodium 100 Mg Capsule PO DAILY PRN Constipation Lorazepam 0.5 mg 04/05/20 08:05 Lorazepam 0.5 Mg Tablet PO Q4H PRN anxiety Metoprolol Succinate 100 mg 04/05/20 09:00 04/06/20 08:15 Metoprolol Succinate Er 100 Mg Tab.Er.24h PO Not Given DAILY [facility] Protocol Morphine Sulfate 2 mg 04/05/20 08:05 04/05/20 18:10 Morphine Sulfate 2 Mg/Ml Cartridge IVPUSH 2 mg Q3H PRN Administration pain Morphine Sulfate 15 mg 04/05/20 08:05 04/06/20 15:36 Morphine Sulfate Immed Release 15 Mg Tablet PO 15 mg Q4H PRN Administration pain Ondansetron HCl 4 mg 04/04/20 16:40 04/05/20 05:30 Ondansetron Hcl 4 Mg/2 Ml Vial IVPUSH 4 mg Q8H PRN Administration Nausea and Vomiting Pantoprazole Sodium 40 mg 04/05/20 06:30 04/06/20 05:50 Pantoprazole Sodium 40 Mg/10 Ml Vial IVPUSH Not Given BID@0630,1630 [facility] Sodium Chloride 2 ml 04/05/20 00:00 04/06/20 08:13 0.9 % Sodium Chloride Flush 3 Ml Syringe IVFLUSH 2 ml QSHIFT DEE Administration Labs CBC & Chem 7: 04/06/20 05:42 04/06/20 05:42 Labs: Laboratory Results - last 24 hr 04/04/20 04/05/20 04/06/20 19:40 14:12 05:42 MCV 88.2 MCH 29.0 MCHC 32.9 RDW 17.9 H Plt Count 303 MPV 11.8 Immature Gran % (Auto) 0.8 H Neut % (Auto) 79.1 H Lymph % (Auto) 11.4 L [place] % (Auto) 7.9 Eos % (Auto) 0.6 Baso % (Auto) 0.2 Neut # (Auto) 10.3 H Lymph # (Auto) 1.5 [place] # (Auto) 1.0 Eos # (Auto) 0.1 Baso # (Auto) 0.0 Abs Immat Gran (auto) 0.11 H Absolute Nucleated RBC 0.000 Nucleated RBC % (auto) 0.0 PT INR Anion Gap 15 Estim Creat Clear Calc 31.5 Estimated GFR 34 Random Glucose 148 H Fasting Glucose Calcium 7.8 L Total Bilirubin 3.8 H AST 97 H ALT 55 H Alkaline Phosphatase 351 H Total Protein 5.4 L D Albumin 2.7 L Blood Type A Positive Antibody Screen NEGATIVE Crossmatch See Detail 04/06/20 04/06/20 05:42 05:42 MCV MCH MCHC RDW Plt Count MPV Immature Gran % (Auto) Neut % (Auto) Lymph % (Auto) [place] % (Auto) Eos % (Auto) Baso % (Auto) Neut # (Auto) Lymph # (Auto) [place] # (Auto) Eos # (Auto) Baso # (Auto) Abs Immat Gran (auto) Absolute Nucleated RBC Nucleated RBC % (auto) PT 17.8 H D INR 1.5 H Anion Gap 14 Estim Creat Clear Calc 35.9 Estimated GFR 40 Random Glucose Fasting Glucose 122 H Calcium 7.5 L Total Bilirubin AST ALT Alkaline Phosphatase Total Protein Albumin Blood Type Antibody Screen Crossmatch Assessment and Plan (1) Acute blood loss anemia: Status: Acute (2) GI bleed: Status: Acute (3) Warfarin-induced coagulopathy: Status: Acute (4) Adjustment disorder with mixed anxiety and depressed mood: Status: Acute Assessment and Plan: An 84-year-old female with history of atrial fibrillation on Coumadin, dyslipidemia, diastolic CHF who presents for INR check after accidentally of around eddy taking wrong dose of Coumadin. acute blood loss anemia due to supratherapeutic inr 2/2 accidental coumadin overdose hemoglobin dropped to 7 from baseline of almost 11 initially patient was refusing all labs, treatements but she did agree to received vitamin K IV an SBP Improved back to normal of 1.4 to transfuse a unit of blood today monitor H&H Patient decide to hold on EGD at this point, GI input appreciated atrial fibrillation holding metoprolol and warfarin diastolic CHF lasix held HLD can hold statin Elevated LFTs Trending down d/t recent cholecystitis/biliary obstruction /DNI code status- DNR
[2020-04-06] MEDS: Pantoprazole Sodium 40 MG/10 ML VIAL IVPUSH (19:14)
[2020-04-06] MEDS: LORazepam 0.5 MG TABLET PO (22:39)
--- NOTE | 2020-04-06 23:53 | PC.NURSE ---
pt is refusing a new IV access ,pt has only 22 gauge to lt hand. Blood transfusion RBC done ,the amount of the blood infusued is only [address] thomas was notified. The second unit was not started b/c pt is refusing IV access.Dr Gastelum is aware about pt refusal
[2020-04-07] VITALS (14 sets, daily range): BP systolic 100–123; BP diastolic 55–68; PULSE 99–112; RESP 16–20; TEMP 36.6–36.8; O2SAT 93–97; BMI 34.2
[2020-04-07] MEDS: 0.9 % Sodium Chloride Flush 3 ML SYRINGE 2 ML IVFLUSH ×4 (00:08→22:08)
[2020-04-07] MEDS: ondansetron HCL 4 MG/2 ML VIAL IVPUSH (00:34)
--- NOTE | 2020-04-07 00:34 | MHC.PIE ---
P.RAPID AFIB I.PT WITH RAPID AFIB,HR UP TO 150-160 WITH AMBULATION AND ACTIVITY.BP 102/66. UPDATED.ORDER FOR LOPRESSOR 2.5 MG IV GIVEN. UPDATED AND MED GIVEN E.HR DOWN TO 100'S AFTER LOPRESSOR.CONT.TO MONITOR.
[2020-04-07] MEDS: Metoprolol Tartrate 5 MG/5 ML VIAL 2.5 MG IVPUSH (01:23)
[2020-04-07] MEDS: Pantoprazole Sodium 40 MG/10 ML VIAL IVPUSH ×2 (05:21→17:25)
[2020-04-07 06:37] LABS: MANUAL DIFF FLAG NO
[2020-04-07 06:52] LABS: Basophils Percent Auto 0.2 % (0-2); Eosinophils Absolute Auto 0.1 X10*3/uL (0.0-0.4); Eosinophils Percent Auto 0.4 % (0-4); Hematocrit 23.3 % (37-47); Hemoglobin 7.6 g/dl (12.0-16.0); Imm Gran Abs Auto 0.13 X10*3/uL (0.00-0.03); Lymphocytes Percent Auto 7.6 % (20-40); Mean Corpuscular HGB Conc 32.6 g/dl (31.0-35.0); Mean Corpuscular Hemoglobin 29.1 pg (27.0-33.0); Mean Corpuscular Volume 89.3 fL (80-98); Mean Platelet Volume 11.5 fL (9.4-12.3); Monocytes Absolute Auto 1.4 X10*3/uL (0.1-1.2); Monocytes Percent Auto 10.6 % (2-11); Neutrophils Absolute Auto 10.6 X10*3/uL (2.0-8.3); Neutrophils Percent Auto 80.2 % (45-73); Platelet Count 303 X10*3/uL (160-400); Red Blood Count 2.61 X10*6/uL (4.20-5.50); Red Cell Distribution Width 17.3 % (11.0-16.0); White Blood Count 13.2 X10*3/uL (4.8-10.8)
[2020-04-07 07:16] LABS: Anion Gap 14 (12-20); Blood Urea Nitrogen 31 mg/dL (9-16); Calcium 7.5 mg/dL (8.4-10.2); Carbon Dioxide 25 mmol/L (22-29); Chloride 98 mmol/L (96-108); Creatinine Clr Calc Pharmacy 44.7; Estimated Glomerular Filt Rate 52; Glucose Random 128 mg/dL (60-115); Sodium 133 mmol/L (135-145)
[2020-04-07] MEDS: Metoprolol Succinate ER 100 MG TAB.ER.24H PO (08:39)
[2020-04-07] MEDS: Morphine Sulfate 2 MG/ML CARTRIDGE IVPUSH ×3 (08:39→23:13)
--- NOTE | 2020-04-07 11:49 | MHC.CM.PN ---
Per MD rounds Pt has changed her mind, and would like GI to F/U with scope for GI bleed. DP home family transport.
--- NOTE | 2020-04-07 13:51 | HO.PM.IMPN ---
Subjective Subjective Date of Service: 04/07/20 Interval History: Patient seen and evaluated this morning Feels comfortable, reports an episode of vomiting her red particle seems like blood Hemoglobin has been stable No reported other overnight events Review of Systems Review of Systems: Yes all other systems are reviewed and are negative Gastrointestinal Gastrointestinal: Reports no additional gastrointestinal complaints Physical Exam Vital Signs and I&O and Narrative: Vital Signs and I&O: Vital Signs Temp 98.0 F 04/07/20 12:00 Pulse 100 04/07/20 12:00 Resp 20 04/07/20 12:00 BP 122/66 04/07/20 12:00 Pulse Ox 94 04/07/20 12:00 Intake & Output 04/06/20 04/07/20 04/07/20 18:59 06:59 18:59 Intake Total 330 / 390 60 / 390 Output Total 80 / 860 780 / 860 Balance 250 / -470 -720 / -470 Urine Output (Aver age ml/kg/hr) 0.51 Intake: Intake, Oral [place] unt 180 / 240 60 / 240 Intake (Blood Pr oduct) Amount 150 / 150 Red Blood Cell s (E0336) Unit 150 / 150 [id number] Output: Output, Urine Am ount 550 / 550 Output, Emesis A mount 100 / 100 Output, Drainage Amount 80 / 210 130 / 210 Left 80 / 210 130 / 210 Right 0 / 0 Other: Meal Refused Yes Yes Breakfast % Eate n 100% Dinner % Eaten 0% Urine Bathroom Urine Color [place] Emesis Color Bile Body Mass Index 34.2 Const: General: cooperative and comfortable Orientation/consciousness: oriented to person and oriented to place Neck: Neck: Yes normal visual inspection and Yes full ROM Resp: Effort & Inspection: normal respiratory effort Auscultation: clear to auscultation bilaterally Cardio: Jugular venous distension: no JVD Heart sounds: S1 normal heart sound present and S2 normal heart sound present GI: Inspection: Yes normal to inspection Auscultation: normal bowel sounds Neuro: General: oriented to person and oriented to place Extrem: General: Yes normal to inspection and Yes full ROM Objective Data Current Medications Generic Name Dose Route Start Last Admin Trade Name Freq PRN Reason Stop Dose Admin Acetaminophen 650 mg 04/04/20 20:31 04/04/20 20:35 Acetaminophen 325 Mg Tablet PO 650 mg Q6H PRN Administration Pain and Fever Atorvastatin Calcium 40 mg 04/04/20 21:00 04/06/20 21:01 Atorvastatin Calcium 40 Mg Tablet PO Not Given BEDTIME [facility] Docusate Sodium 100 mg 04/04/20 16:40 Docusate Sodium 100 Mg Capsule PO DAILY PRN Constipation Lorazepam 0.5 mg 04/05/20 08:05 04/06/20 22:39 Lorazepam 0.5 Mg Tablet PO 0.5 mg Q4H PRN Administration anxiety Metoprolol Succinate 100 mg 04/05/20 09:00 04/07/20 08:39 Metoprolol Succinate Er 100 Mg Tab.Er.24h PO 100 mg DAILY [facility] Administration Protocol Morphine Sulfate 2 mg 04/05/20 08:05 04/07/20 08:39 Morphine Sulfate 2 Mg/Ml Cartridge IVPUSH 2 mg Q3H PRN Administration pain Morphine Sulfate 15 mg 04/05/20 08:05 04/06/20 22:39 Morphine Sulfate Immed Release 15 Mg Tablet PO 15 mg Q4H PRN Administration pain Ondansetron HCl 4 mg 04/04/20 16:40 04/07/20 00:34 Ondansetron Hcl 4 Mg/2 Ml Vial IVPUSH 4 mg Q8H PRN Administration Nausea and Vomiting Pantoprazole Sodium 40 mg 04/05/20 06:30 04/07/20 05:21 Pantoprazole Sodium 40 Mg/10 Ml Vial IVPUSH 40 mg BID@0630,1630 [facility] Administration Sodium Chloride 2 ml 04/05/20 00:00 04/07/20 08:39 0.9 % Sodium Chloride Flush 3 Ml Syringe IVFLUSH 2 ml QSHIFT [facility] Administration Labs CBC & Chem 7: 04/07/20 05:44 04/07/20 05:44 Labs: Laboratory Results - last 24 hr 04/04/20 04/07/20 04/07/20 19:40 05:44 05:44 MCV 89.3 MCH 29.1 MCHC 32.6 RDW 17.3 H Plt Count 303 MPV 11.5 Immature Gran % (Auto) 1.0 H Neut % (Auto) 80.2 H Lymph % (Auto) 7.6 L [place] % (Auto) 10.6 Eos % (Auto) 0.4 Baso % (Auto) 0.2 Neut # (Auto) 10.6 H Lymph # (Auto) 1.0 L [place] # (Auto) 1.4 H Eos # (Auto) 0.1 Baso # (Auto) 0.0 Abs Immat Gran (auto) 0.13 H Absolute Nucleated RBC 0.000 Nucleated RBC % (auto) 0.0 Anion Gap 14 Estim Creat Clear Calc 44.7 Estimated GFR 52 Random Glucose 128 H Calcium 7.5 L Crossmatch See Detail Assessment and Plan (1) GI bleed: Status: Acute (2) Acute blood loss anemia: Status: Acute (3) Warfarin-induced coagulopathy: Status: Acute (4) Adjustment disorder with mixed anxiety and depressed mood: Status: Acute Assessment and Plan: An 84-year-old female with history of atrial fibrillation on Coumadin, dyslipidemia, diastolic CHF who presents for INR check after accidentally of around [place] taking wrong dose of Coumadin. acute blood loss anemia due to supratherapeutic inr 2/2 accidental coumadin overdose hemoglobin dropped to 7 from baseline of almost 11 Hb has been stable overnight initially patient was refusing all labs, treatements but she did agree to received vitamin K IV an SBP Improved back to normal of 1.4 Could not finish transfusion as the IV line stopped working monitor H&H Patient decide to to do EGD by tomorrow GI input appreciated atrial fibrillation holding metoprolol and warfarin diastolic CHF lasix held HLD can hold statin Elevated LFTs Trending down d/t recent cholecystitis/biliary obstruction /DNI code status- DNR
--- NOTE | 2020-04-07 14:00 | PC.NURSE ---
midline access attempted x2 by this RN to l upper arm. unable to obtain iv access with midline, r arm not accessible d/t hx mastectomy. able to obtain iv access with 20g x 1.75 inch iv catheter to l upper arm using l basilic vein with us guidance; blood return visualized, flushes easily. pt denies any discomfort with flushing. prn angio dressed with biopatch at insertion site and tegaderm. dr. browning made aware as well as primary rn shruti canales
[2020-04-07] MEDS: Atorvastatin Calcium 40 MG TABLET PO (22:08)
--- NOTE | 2020-04-07 22:54 | P.PNGI_ITS ---
Subjective Subjective Date of Service: 04/07/20 Interval History: stable, no further vomiting, HGB stable she is fed up with medical interventions reluctantly agrees to EGD tomorrow she will need another IV, agreeable to PICC albeit reluctantly, chances she may still change her mind Physical Exam Vital Signs and I&O and Narrative: Vital Signs and I&O: Vital Signs Temp 98.0 F 04/07/20 12:00 Pulse 112 H 04/07/20 19:52 Resp 20 04/07/20 19:52 BP 113/58 L 04/07/20 19:52 Pulse Ox 93 04/07/20 20:00 Intake & Output 04/07/20 04/07/20 04/08/20 06:59 18:59 06:59 Intake Total 60 / 390 Output Total 780 / 860 200 / 400 200 / 400 Balance -720 / -470 -200 / -400 -200 / -400 Urine Output (Aver age ml/kg/hr) 0.51 0.18 0.18 Weight 199 lb 8.293 oz Intake: Intake, Oral Wilson unt 60 / 240 Output: Output, Urine Am ount 550 / 550 200 / 400 200 / 400 Output, Emesis A mount 100 / 100 Output, Drainage Amount 130 / 210 Left 130 / 210 Right 0 / 0 Other: Meal Refused Yes Breakfast % Eate n 50% Urine Bathroom Urine Color [place] Emesis Color Bile Body Mass Index 34.2 Const: Orientation/consciousness: patient oriented x3 Eyes: Other: pallor Resp: Effort & Inspection: normal respiratory effort GI: Inspection: Yes normal to inspection Palpation (GI): Soft to palpation Percussion: Yes normal to percussion Neuro: General: patient oriented x3 Objective Data Labs CBC & Chem 7: 04/07/20 05:44 04/07/20 05:44 Labs: Laboratory Results - last 24 hr 04/07/20 04/07/20 05:44 05:44 WBC 13.2 H RBC 2.61 L Hgb 7.6 L Hct 23.3 L MCV 89.3 MCH 29.1 MCHC 32.6 RDW 17.3 H Plt Count 303 MPV 11.5 Immature Gran % (Auto) 1.0 H Neut % (Auto) 80.2 H Lymph % (Auto) 7.6 L [place] % (Auto) 10.6 Eos % (Auto) 0.4 Baso % (Auto) 0.2 Neut # (Auto) 10.6 H Lymph # (Auto) 1.0 L [place] # (Auto) 1.4 H Eos # (Auto) 0.1 Baso # (Auto) 0.0 Abs Immat Gran (auto) 0.13 H Absolute Nucleated RBC 0.000 Nucleated RBC % (auto) 0.0 Sodium 133 L Potassium 4.0 Chloride 98 Carbon Dioxide 25 Anion Gap 14 BUN 31 H Creatinine 1.02 Estim Creat Clear Calc 44.7 Estimated GFR 52 Random Glucose 128 H Calcium 7.5 L Progress Note: A&P Assessment and plan (1) Acute blood loss anemia: Status: Acute Assessment and Plan: 1/ Anemia in setting of elevated INR, now stable after resuscitation, suspect mucosal bleeding from raised INR PLAN: 1/ On schedule for EGd tomorrow, if she changes her mind then would give low dose PPI, iron supplement and f/u as o/p, avoid nsaids Fall Risk Details Current Medications: Current Medications Generic Name Dose Route Start Last Admin Trade Name Freq PRN Reason Stop Dose Admin Acetaminophen 650 mg 04/04/20 20:31 04/04/20 20:35 Acetaminophen 325 Mg Tablet PO 650 mg Q6H PRN Administration Pain and Fever Atorvastatin Calcium 40 mg 04/04/20 21:00 04/07/20 22:08 Atorvastatin Calcium 40 Mg Tablet PO 40 mg BEDTIME DEE Administration Docusate Sodium 100 mg 04/04/20 16:40 Docusate Sodium 100 Mg Capsule PO DAILY PRN Constipation Lorazepam 0.5 mg 04/05/20 08:05 04/06/20 22:39 Lorazepam 0.5 Mg Tablet PO 0.5 mg Q4H PRN Administration anxiety Metoprolol Succinate 100 mg 04/05/20 09:00 04/07/20 08:39 Metoprolol Succinate Er 100 Mg Tab.Er.24h PO 100 mg DAILY DEE Administration Protocol Morphine Sulfate 2 mg 04/05/20 08:05 04/07/20 17:32 Morphine Sulfate 2 Mg/Ml Cartridge IVPUSH 2 mg Q3H PRN Administration pain Morphine Sulfate 15 mg 04/05/20 08:05 04/06/20 22:39 Morphine Sulfate Immed Release 15 Mg Tablet PO 15 mg Q4H PRN Administration pain Ondansetron HCl 4 mg 04/04/20 16:40 04/07/20 00:34 Ondansetron Hcl 4 Mg/2 Ml Vial IVPUSH 4 mg Q8H PRN Administration Nausea and Vomiting Pantoprazole Sodium 40 mg 04/05/20 06:30 04/07/20 17:25 Pantoprazole Sodium 40 Mg/10 Ml Vial IVPUSH 40 mg BID@0630,1630 DEE Administration Sodium Chloride 2 ml 04/05/20 00:00 04/07/20 22:08 0.9 % Sodium Chloride Flush 3 Ml Syringe IVFLUSH 2 ml QSHIFT DEE Administration Time Spent With Patient Time with patient: less than 15 minutes
[2020-04-08] VITALS (14 sets, daily range): BP systolic 96–154; BP diastolic 52–75; PULSE 71–103; RESP 15–22; TEMP 36–36.8; O2SAT 92–97
[2020-04-08] MEDS: Pantoprazole Sodium 40 MG/10 ML VIAL IVPUSH (05:36)
[2020-04-08 06:31] LABS: MANUAL DIFF FLAG NO
[2020-04-08 06:47] LABS: Basophils Percent Auto 0.3 % (0-2); Eosinophils Absolute Auto 0.3 X10*3/uL (0.0-0.4); Hematocrit 22.6 % (37-47); Hemoglobin 7.3 g/dl (12.0-16.0); Imm Gran Abs Auto 0.16 X10*3/uL (0.00-0.03); Imm Gran Pct Auto 1.3 % (0.0-0.4); Lymphocytes Absolute Auto 1.9 X10*3/uL (1.2-4.9); Lymphocytes Percent Auto 14.6 % (20-40); Mean Corpuscular HGB Conc 32.3 g/dl (31.0-35.0); Mean Corpuscular Hemoglobin 28.7 pg (27.0-33.0); Mean Platelet Volume 11.5 fL (9.4-12.3); Monocytes Absolute Auto 1.4 X10*3/uL (0.1-1.2); Monocytes Percent Auto 10.8 % (2-11); Platelet Count 261 X10*3/uL (160-400); Red Blood Count 2.54 X10*6/uL (4.20-5.50); Red Cell Distribution Width 17.4 % (11.0-16.0); White Blood Count 12.7 X10*3/uL (4.8-10.8)
[2020-04-08 06:59] LABS: Anion Gap 13 (12-20); Blood Urea Nitrogen 36 mg/dL (9-16); Calcium 7.5 mg/dL (8.4-10.2); Carbon Dioxide 27 mmol/L (22-29); Chloride 99 mmol/L (96-108); Creatinine Clr Calc Pharmacy 46.5; Estimated Glomerular Filt Rate 54; Glucose Random 93 mg/dL (60-115); Potassium 4.5 mmol/l (3.3-5.1); Sodium 134 mmol/L (135-145)
[2020-04-08] MEDS: Metoprolol Succinate ER 100 MG TAB.ER.24H PO (08:50)
[2020-04-08] MEDS: 0.9 % Sodium Chloride Flush 3 ML SYRINGE 2 ML IVFLUSH ×3 (08:56→23:58)
--- NOTE | 2020-04-08 12:04 | MHC.CM.PN ---
DP met with DTR STR preferences obtained. DP is STR 1st choice [facility]av[facility]. Referrals made. CM will follow.
--- NOTE | 2020-04-08 13:09 | HO.PM.IMPN ---
Subjective Subjective Date of Service: 04/08/20 Interval History: the patient was seen and evaluated this morning Laying in bed, feels comfortable, sleeping Denies any fever, chills or shortness of breath No reported other overnight events. Review of Systems Review of Systems: Yes all other systems are reviewed and are negative Gastrointestinal denies vomiting, reports mild dry heave Physical Exam Vital Signs and I&O and Narrative: Vital Signs and I&O: Vital Signs Temp 96.8 F 04/08/20 11:44 Pulse 95 04/08/20 11:44 Resp 18 04/08/20 11:44 BP 124/75 04/08/20 11:44 Pulse Ox 97 04/08/20 11:44 Intake & Output 04/07/20 04/08/20 04/08/20 18:59 06:59 18:59 Output Total 200 / 700 500 / 700 Balance -200 / -700 -500 / -700 Urine Output (Aver age ml/kg/hr) 0.18 0.37 Weight 90.5 kg Output: Output, Urine Am ount 200 / 600 400 / 600 Output, Drainage Amount 100 / 100 Left 100 / 100 Other: NPO Yes Breakfast % Eate n 50% Body Mass Index 34.2 Constitutional : Alert, oriented, not in distress Neck : Normal inspection, Supple Cardiovascular : RRR, S1 S2, no lower extremity edema Respiratory : Good bilateral air entry, no crackles, wheezes or rhonchi Gastrointestinal: soft, lax, Normal bowel sounds, Non tender Skin : Warm/Dry, No rash Neurological : Alert & oriented x3, No focal deficit Objective Data Current Medications Generic Name Dose Route Start Last Admin Trade Name Dallasq PRN Reason Stop Dose Admin Acetaminophen 650 mg 04/04/20 20:31 04/04/20 20:35 Acetaminophen 325 Mg Tablet PO 650 mg Q6H PRN Administration Pain and Fever Atorvastatin Calcium 40 mg 04/04/20 21:00 04/07/20 22:08 Atorvastatin Calcium 40 Mg Tablet PO 40 mg BEDTIME DEE Administration Docusate Sodium 100 mg 04/04/20 16:40 Docusate Sodium 100 Mg Capsule PO DAILY PRN Constipation Lorazepam 0.5 mg 04/05/20 08:05 04/06/20 22:39 Lorazepam 0.5 Mg Tablet PO 0.5 mg Q4H PRN Administration anxiety Metoprolol Succinate 100 mg 04/05/20 09:00 04/08/20 08:50 Metoprolol Succinate Er 100 Mg Tab.Er.24h PO 100 mg DAILY DEE Administration Protocol Morphine Sulfate 2 mg 04/05/20 08:05 04/07/20 23:13 Morphine Sulfate 2 Mg/Ml Cartridge IVPUSH 2 mg Q3H PRN Administration pain Morphine Sulfate 15 mg 04/05/20 08:05 04/06/20 22:39 Morphine Sulfate Immed Release 15 Mg Tablet PO 15 mg Q4H PRN Administration pain Ondansetron HCl 4 mg 04/04/20 16:40 04/07/20 00:34 Ondansetron Hcl 4 Mg/2 Ml Vial IVPUSH 4 mg Q8H PRN Administration Nausea and Vomiting Sodium Chloride 2 ml 04/05/20 00:00 04/08/20 08:56 0.9 % Sodium Chloride Flush 3 Ml Syringe IVFLUSH 2 ml QSHIFT DEE Administration Labs CBC & Chem 7: 04/08/20 06:07 04/08/20 06:07 Labs: Laboratory Results - last 24 hr 04/04/20 04/08/20 04/08/20 19:40 06:07 06:07 MCV 89.0 MCH 28.7 MCHC 32.3 RDW 17.4 H Plt Count 261 MPV 11.5 Immature Gran % (Auto) 1.3 H Neut % (Auto) 71.0 Lymph % (Auto) 14.6 L [place] % (Auto) 10.8 Eos % (Auto) 2.0 Baso % (Auto) 0.3 Lymph # (Auto) 1.9 [place] # (Auto) 1.4 H Eos # (Auto) 0.3 Baso # (Auto) 0.0 Abs Immat Gran (auto) 0.16 H Absolute Neuts (auto) 9.0 H Absolute Nucleated RBC 0.000 Nucleated RBC % (auto) 0.0 Anion Gap 13 Estim Creat Clear Calc 46.5 Estimated GFR 54 Random Glucose 93 Calcium 7.5 L Blood Type A Positive Antibody Screen NEGATIVE Crossmatch See Detail Assessment and Plan (1) Acute blood loss anemia: Status: Acute (2) GI bleed: Status: Acute (3) Warfarin-induced coagulopathy: Status: Acute (4) Adjustment disorder with mixed anxiety and depressed mood: Status: Acute Assessment and Plan: An 84-year-old female with history of atrial fibrillation on Coumadin, dyslipidemia, diastolic CHF who presents for INR check after accidentally of around eddy taking wrong dose of Coumadin. acute blood loss anemia due to supratherapeutic inr 2/2 accidental coumadin overdose hemoglobin has been stable between 7-8 initially patient was refusing all labs, treatments but she did agree to received vitamin K INR Improved back to normal of 1.4 Could not finish transfusion as the IV line stopped working monitor H&H plan to do EGD today GI input appreciated atrial fibrillation holding metoprolol and warfarin to restart warfarin and bridge with Lovenox if EGD looks fine diastolic CHF lasix held HLD can hold statin Elevated LFTs Trending down d/t recent cholecystitis/biliary obstruction /DNI code status- DNR
--- NOTE | 2020-04-08 13:27 | MHC.SHP ---
Pre-Procedural Eval Section A The patient is an INPATIENT: Yes The History & Physical has been completed within 30 days and I have reviewed it.: Yes Section B Chief Complaint: abnormal lab Allergies: Allergies Allergy/AdvReac Type Severity Reaction Status Date / Time amlodipine Allergy Unknown Unknown Verified 04/05/20 04:24 lisinopril Allergy Unknown Unknown Verified 04/05/20 04:24 acetaminophen AdvReac Unknown VOMITING Verified 04/05/20 04:24 [From Tylenol-Codeine] Codeine Phosphate Allergy Unknown vomiting Uncoded 04/05/20 04:24 Codeine Sulfate Allergy Unknown Unknown Uncoded 04/05/20 04:24 From Tylenol-Codeine AdvReac Unknown VOMITING Uncoded 04/05/20 04:24 Plan Patient has been examined and remains a candidate for the planned procedure
--- NOTE | 2020-04-08 13:40 | HO.ANESPROP2 ---
HPI - Anesthesia Eval Consult details Narrative: 84 F with GIB PMFSH Past Medical History Medical History Atrial fibrillation Breast cancer Cholecystectomy planned Cholecystostomy tube dysfunction Diastolic CHF High cholesterol HTN (hypertension) Hypothyroid NSTEMI (non-ST elevated myocardial infarction) Psoriasis Restless leg syndrome Stomach cancer Uterine cancer Surgical History Surgical History History of cardiac catheterization History of partial gastrectomy S/P breast lumpectomy S/P TALYA-BSO (total abdominal hysterectomy and bilateral salpingo-oophorectomy) Social History Social History Household Members: Spouse Housing: Other Housing Other:: CO-OP Do you presently have visiting nurse or other home services: Yes (VISITING NURSE THREE TIMES, THEN TO HOSPTAL) Alcohol intake: never Smoking Status: Never smoker Smoked in Last 30 Days: No Patient Interested in Nicotine Replacement: No Patient Given Instructions on How to Stop Smoking: No Second Hand Smoke Exposure: No Use of substances other than those prescribed or required for medical reasons: No Currently Displaying Signs/Symptoms of Drug Intoxication Withdrawal: No Any prior treatment program specific to substance use: No Have you been hit, kicked, punched, or otherwise hurt by someone within the past year? If so, by whom?: No Do you feel safe in your current relationship?: Yes Is there a partner from a previous relationship who is making you feel unsafe now?: No Are you made to feel afraid or neglected: No Spiritual Healthcare Practices: N/A Jain Healthcare Practices: N/A Cultural Healthcare Practices: N/A Advance Directives: No Advance Directives Information Provided: No Advance Directives on File: No Do you have thoughts of harming others: None Do you have a plan to hurt others: No Plan Recently lost weight without trying: Unsure service: No Current occupational status: retired Meds Allergies Allergy/AdvReac Type Severity Reaction Status Date / Time amlodipine Allergy Unknown Unknown Verified 04/05/20 04:24 lisinopril Allergy Unknown Unknown Verified 04/05/20 04:24 acetaminophen AdvReac Unknown VOMITING Verified 04/05/20 04:24 [From Tylenol-Codeine] Codeine Phosphate Allergy Unknown vomiting Uncoded 04/05/20 04:24 Codeine Sulfate Allergy Unknown Unknown Uncoded 04/05/20 04:24 From Tylenol-Codeine AdvReac Unknown VOMITING Uncoded 04/05/20 04:24 Home Medications Medication Instructions Recorded Confirmed Type atorvastatin 1 tab PO BEDTIME 04/04/20 04/04/20 History calcipotriene TOPICAL 04/04/20 History furosemide 1 tab PO DAILY 04/04/20 04/04/20 History metoprolol succinate 1 tab PO DAILY 04/04/20 04/04/20 History warfarin PO 04/04/20 History Exam Exam Date and Time: April 08, 2020 1340 Height,Weight and Vital Signs: Height 5 ft 4 in Weight 90.5 kg Last Vital Signs Temp 97.1 F 04/08/20 13:31 Pulse 89 04/08/20 13:31 Resp 18 04/08/20 13:31 BP 154/58 H 04/08/20 13:31 Pulse Ox 96 04/08/20 13:31 Pertinent Lab Results Pertinent Lab Results: Laboratory Tests 04/04/20 04/04/20 04/04/20 10:11 10:11 10:11 WBC 13.1 H RBC 4.30 Hgb 12.6 Hct 37.6 MCV 87.4 MCH 29.3 MCHC 33.5 RDW 17.9 H Plt Count 360 MPV 11.4 Immature Gran % (Auto) Neut % (Auto) Lymph % (Auto) [place] % (Auto) Eos % (Auto) Baso % (Auto) Neut # (Auto) Lymph # (Auto) [place] # (Auto) Eos # (Auto) Baso # (Auto) Abs Immat Gran (auto) Absolute Neuts (auto) Absolute Nucleated RBC 0.000 Nucleated RBC % (auto) 0.0 Smear Tech's Comments PT 182.2 H D INR 14.9 H* D APTT 46.8 H Sodium 136 Potassium 5.2 H Chloride 97 Carbon Dioxide 25 Anion Gap 19 BUN 13 Creatinine 0.89 Estim Creat Clear Calc 51.3 Estimated GFR > 60 Random Glucose 111 Fasting Glucose Calcium 8.5 Total Bilirubin 4.9 H Direct Bilirubin 3.3 H AST 118 H ALT 70 H Alkaline Phosphatase 438 H Total Protein 6.8 Albumin 3.1 L Lipase 288 H Blood Type Antibody Screen Crossmatch 04/04/20 04/04/20 04/05/20 19:40 19:47 14:11 WBC 12.5 H RBC 3.55 L Hgb 10.4 L Hct 31.7 L MCV 89.3 MCH 29.3 MCHC 32.8 RDW 18.0 H Plt Count 284 MPV 11.2 Immature Gran % (Auto) Neut % (Auto) Lymph % (Auto) [place] % (Auto) Eos % (Auto) Baso % (Auto) Neut # (Auto) Lymph # (Auto) [place] # (Auto) Eos # (Auto) Baso # (Auto) Abs Immat Gran (auto) Absolute Neuts (auto) Absolute Nucleated RBC 0.000 Nucleated RBC % (auto) 0.0 Smear Tech's Comments PT 181.3 H INR 14.8 H* APTT Sodium Potassium Chloride Carbon Dioxide Anion Gap BUN Creatinine Estim Creat Clear Calc Estimated GFR Random Glucose Fasting Glucose Calcium Total Bilirubin Direct Bilirubin AST ALT Alkaline Phosphatase Total Protein Albumin Lipase Blood Type A Positive Antibody Screen NEGATIVE Crossmatch See Detail 04/05/20 04/05/20 04/05/20 14:12 14:13 21:40 WBC 21.7 H RBC 3.10 L Hgb 9.0 L 7.9 L Hct 27.8 L 23.5 L MCV 89.7 MCH 29.0 MCHC 32.4 RDW 18.3 H Plt Count 309 MPV 11.7 Immature Gran % (Auto) 0.6 H Neut % (Auto) 91.2 H Lymph % (Auto) 4.2 L [place] % (Auto) 3.7 Eos % (Auto) 0.1 Baso % (Auto) 0.2 Neut # (Auto) 19.7 H Lymph # (Auto) 0.9 L [place] # (Auto) 0.8 Eos # (Auto) 0.0 Baso # (Auto) 0.0 Abs Immat Gran (auto) 0.13 H Absolute Neuts (auto) Absolute Nucleated RBC 0.000 Nucleated RBC % (auto) 0.0 Smear Tech's Comments VERIFIED PT INR APTT Sodium 136 Potassium 4.1 D Chloride 98 Carbon Dioxide 27 Anion Gap 15 BUN 23 H D Creatinine 1.45 H Estim Creat Clear Calc 31.5 Estimated GFR 34 Random Glucose 148 H Fasting Glucose Calcium 7.8 L Total Bilirubin 3.8 H Direct Bilirubin AST 97 H ALT 55 H Alkaline Phosphatase 351 H Total Protein 5.4 L D Albumin 2.7 L Lipase Blood Type Antibody Screen Crossmatch 04/06/20 04/06/20 04/06/20 05:42 05:42 05:42 WBC 13.0 H RBC 2.55 L Hgb 7.4 L Hct 22.5 L MCV 88.2 MCH 29.0 MCHC 32.9 RDW 17.9 H Plt Count 303 MPV 11.8 Immature Gran % (Auto) 0.8 H Neut % (Auto) 79.1 H Lymph % (Auto) 11.4 L [place] % (Auto) 7.9 Eos % (Auto) 0.6 Baso % (Auto) 0.2 Neut # (Auto) 10.3 H Lymph # (Auto) 1.5 [place] # (Auto) 1.0 Eos # (Auto) 0.1 Baso # (Auto) 0.0 Abs Immat Gran (auto) 0.11 H Absolute Neuts (auto) Absolute Nucleated RBC 0.000 Nucleated RBC % (auto) 0.0 Smear Tech's Comments PT 17.8 H D INR 1.5 H APTT Sodium 134 L Potassium 3.9 Chloride 99 Carbon Dioxide 25 Anion Gap 14 BUN 28 H Creatinine 1.27 Estim Creat Clear Calc 35.9 Estimated GFR 40 Random Glucose Fasting Glucose 122 H Calcium 7.5 L Total Bilirubin Direct Bilirubin AST ALT Alkaline Phosphatase Total Protein Albumin Lipase Blood Type Antibody Screen Crossmatch 04/07/20 04/07/20 04/08/20 05:44 05:44 06:07 WBC 13.2 H 12.7 H RBC 2.61 L 2.54 L Hgb 7.6 L 7.3 L Hct 23.3 L 22.6 L MCV 89.3 89.0 MCH 29.1 28.7 MCHC 32.6 32.3 RDW 17.3 H 17.4 H Plt Count 303 261 MPV 11.5 11.5 Immature Gran % (Auto) 1.0 H 1.3 H Neut % (Auto) 80.2 H 71.0 Lymph % (Auto) 7.6 L 14.6 L [place] % (Auto) 10.6 10.8 Eos % (Auto) 0.4 2.0 Baso % (Auto) 0.2 0.3 Neut # (Auto) 10.6 H Lymph # (Auto) 1.0 L 1.9 [place] # (Auto) 1.4 H 1.4 H Eos # (Auto) 0.1 0.3 Baso # (Auto) 0.0 0.0 Abs Immat Gran (auto) 0.13 H 0.16 H Absolute Neuts (auto) 9.0 H Absolute Nucleated RBC 0.000 0.000 Nucleated RBC % (auto) 0.0 0.0 Smear Tech's Comments PT INR APTT Sodium 133 L Potassium 4.0 Chloride 98 Carbon Dioxide 25 Anion Gap 14 BUN 31 H Creatinine 1.02 Estim Creat Clear Calc 44.7 Estimated GFR 52 Random Glucose 128 H Fasting Glucose Calcium 7.5 L Total Bilirubin Direct Bilirubin AST ALT Alkaline Phosphatase Total Protein Albumin Lipase Blood Type Antibody Screen Crossmatch 04/08/20 06:07 WBC RBC Hgb Hct MCV MCH MCHC RDW Plt Count MPV Immature Gran % (Auto) Neut % (Auto) Lymph % (Auto) [place] % (Auto) Eos % (Auto) Baso % (Auto) Neut # (Auto) Lymph # (Auto) [place] # (Auto) Eos # (Auto) Baso # (Auto) Abs Immat Gran (auto) Absolute Neuts (auto) Absolute Nucleated RBC Nucleated RBC % (auto) Smear Tech's Comments PT INR APTT Sodium 134 L Potassium 4.5 Chloride 99 Carbon Dioxide 27 Anion Gap 13 BUN 36 H Creatinine 0.98 Estim Creat Clear Calc 46.5 Estimated GFR 54 Random Glucose 93 Fasting Glucose Calcium 7.5 L Total Bilirubin Direct Bilirubin AST ALT Alkaline Phosphatase Total Protein Albumin Lipase Blood Type Antibody Screen Crossmatch Airway Mallampati Class: III TM Dist: >3cm Denture: Upper and Lower Heart: afib Assessment and Plan Assessment Anesthesia Assessment: Anesthesia Plan Discussed and Chart Reviewed Final Anesthetic Review NPO: Yes ASA Class: IV Final Preanesthetic Review: Meds/Allgs Chart Reviewed, Consent Obtained/Reviewed, Anes Risks/Benef Reviewed and DNR Form (If Appl.) (Tried to reach and daughter via phone, unable to reach. Discussed wishes; pt only wants vasoactive drugs if needed, no other measures intra or post-op) Patient Risk: High Procedure Risk: Intermediate Anesthetic Plan Anesthetic Plan: MAC: Disposition: Standard PACU and Inp. Admit - IMC
--- NOTE | 2020-04-08 13:58 | PM.OP ---
Brief Operative Note Date of procedure: 04/08/20 Pre-op diagnosis: acute blood loss anemia Post-op diagnosis: same Procedure: Procedure Description: EGD, hx of partial gastrectomy FLEXIBLE TRANSORAL UPPER GASTROINTESTINAL ENDOSCOPY UPPER ENDOSCOPY Consent: Indications for the procedure and potential complications of bleeding, perforation, reaction to medications and missed diagnosis were discussed with the patient and informed consent was obtained. Instrument: Olympus GIF H 190 J mid size upper endoscope Monitoring: Vital signs and clinical assessment, continuous EKG monitoring, Pulse oximetry, Carbon Dioxide monitoring and blood pressure monitoring were done throughout the procedure. Procedure: The patient was placed in the left lateral decubitis position and pre-procedure medications were administered and a bite block was placed. The endoscope was inserted into the mouth and advanced under direct vision to the third part of duodenum. A careful inspection was made as the upper endoscope was withdrawn including a retroflexed examination of the proximal stomach; Findings and interventions are described below. Findings: Larynx:normal Esophagus: GE junction at 40 cm, diaphragm hiatus at 40 cm, non erosive esophagitis noted at GEJ Stomach: erythema and mild inflammation noted at anastomosis.. Grade 2 flap valve on retroflexed examination of the cardia. Duodenum: Normal bulb and descending duodenum, no active bleeding was seen Intervention: Biopsies as noted above Impression/Findings: gastritis esophagitis no active bleeding, no ulcers PLAN: no active bleeding, can restart coumadin can use low dose PPI for gastritis and esophagitis Surgeon: Dino Paredes MD Anesthesia: MAC Pathology: none sent Condition: stable Disposition: PACU
[2020-04-08] MEDS: Morphine Sulfate 2 MG/ML CARTRIDGE IVPUSH (17:54)
[2020-04-08] MEDS: Warfarin Sodium 5 MG TABLET PO (18:06)
[2020-04-08] MEDS: LORazepam 0.5 MG TABLET PO (18:07)
[2020-04-08] MEDS: Morphine Sulfate Immed Release 15 MG TABLET PO (19:37)
[2020-04-08] MEDS: Atorvastatin Calcium 40 MG TABLET PO (21:28)
[2020-04-09] VITALS (8 sets, daily range): BP systolic 106–129; BP diastolic 58–77; PULSE 80–97; RESP 16–18; TEMP 35.8–36.5; O2SAT 92–99
[2020-04-09 07:33] LABS: Anion Gap 13 (12-20); Blood Urea Nitrogen 26 mg/dL (9-16); Calcium 7.6 mg/dL (8.4-10.2); Carbon Dioxide 25 mmol/L (22-29); Chloride 98 mmol/L (96-108); Creatinine Clr Calc Pharmacy 57.7; Estimated Glomerular Filt Rate > 60; Glucose Random 92 mg/dL (60-115); Sodium 132 mmol/L (135-145)
--- NOTE | 2020-04-09 08:13 | PC.NURSE ---
LAB MADE THIS RN AWARE THAT 0600 LABS DRAWN HAD CLOTTED OFF. PATIENT REFUSING TO HAVE ANYMORE LABS DRAWN STATING I HAVE BEEN STUCK TO MANY TIMES, I AM TIRED . AWARE. NO NEW ORDERS AT THIS TIME.
[2020-04-09] MEDS: 0.9 % Sodium Chloride Flush 3 ML SYRINGE 2 ML IVFLUSH ×2 (08:24→17:35)
[2020-04-09] MEDS: Metoprolol Succinate ER 100 MG TAB.ER.24H PO (08:25)
--- NOTE | 2020-04-09 10:28 | HO.POSTANES ---
Post Anesthesia Evaluation Post Anesthesia Evaluation Vital Signs: Vital Signs Temp Pulse Resp BP Pulse Ox 04/09/20 08:25 88 112/60 04/09/20 07:10 97.7 F 88 18 112/60 97 04/09/20 03:05 97.1 F 85 16 129/60 96 04/09/20 00:00 97.7 F 85 112/77 98 Anesthesia: Monitored Mental Status: Awake Pain Control: Satisfactory Nausea/Vomiting: None Hydration: Adequate Anesthesia-Related Issues: No Anes. Related Issues (Patient states heard and felt 'everything'. Apologised to patient- explained about MAC anesthesia and need to balance safety with sedation needs. Patient and family seem to understand explanation and have no questions.)
--- NOTE | 2020-04-09 13:18 | MHC.CM.PN ---
KEVIN PORTER @ [facility] via BLS.
--- NOTE | 2020-04-09 14:45 | PC.NURSE ---
PHYSICAL THERAPY UNABLE TO VISIT PATIENT DUE TO H AND H LABS. MD IN ROOM WITH PATIENT AND THIS RN. PATIENT AGREEABLE TO LABS, AND BLOOD TRANSFUSIONS. FAMILY AWARE AND UPDATED ON PLAN OF CARE. [facility] CALLED, WAITING FOR TYPE AND SCREEN TO BE DRAWN.
--- NOTE | 2020-04-09 14:57 | MHC.CM.PN ---
DC on hold due to decreased h/h. Transfusion ordered. CM will follow. KEVIN Corrales
--- NOTE | 2020-04-09 15:02 | HO.PM.IMPN ---
Subjective Subjective Interval History: the patient was seen and evaluated this morning Laying in bed, feels lethargic and tired Denies any fever, chills or shortness of breath reported episode of black stool overnight Blood test clock this morning, she refused to repeat that the beginning. No reported other overnight events. Physical Exam Vital Signs and I&O and Narrative: Vital Signs and I&O: Vital Signs Temp 97.6 F 04/09/20 11:12 Pulse 92 04/09/20 11:12 Resp 18 04/09/20 11:12 BP 115/65 04/09/20 11:12 Pulse Ox 92 04/09/20 11:12 Intake & Output 04/08/20 04/09/20 04/09/20 18:59 06:59 18:59 Intake Total 300 / 300 240 / 240 Output Total 260 / 970 710 / 970 2 / 2 Balance 40 / -670 -710 / -670 238 / 238 Urine Output (Aver age ml/kg/hr) 0.14 0.46 0.00 Intake: Intake, Oral Enoch unt 240 / 240 Intake, Other Am ount 300 / 300 Output: Output, Urine Am ount 150 / 650 500 / 650 1 / 1 Output, Stool Am ount 1 / 1 Output, Tube Enoch unt 100 / 100 JM Drain 100 / 100 Output, Drainage Amount 110 / 220 110 / 220 Left 110 / 220 110 / 220 Other: Meal Refused No NPO Yes No Breakfast % Eate n 100% Number of Bowel Movements 1 Urine Bedside Commode Bedside Commode Urine Color Yellow Yellow Stool Bedside Commode Stool Color Blood Tinged Stool Consistenc y Liquid Body Mass Index 34.2 Constitutional : Alert, oriented, not in distress Neck : Normal inspection, Supple Cardiovascular : RRR, S1 S2, no lower extremity edema Respiratory : Good bilateral air entry, no crackles, wheezes or rhonchi Gastrointestinal: soft, lax, Normal bowel sounds, Non tender Skin : Warm/Dry, No rash Neurological : Alert & oriented x3, No focal deficit Const: General: cooperative and comfortable Orientation/consciousness: oriented to person and oriented to place Neck: Neck: Yes normal visual inspection and Yes full ROM Resp: Effort & Inspection: normal respiratory effort Auscultation: clear to auscultation bilaterally Cardio: Jugular venous distension: no JVD Rate: regular rate Heart sounds: S1 normal heart sound present and S2 normal heart sound present GI: Inspection: Yes normal to inspection Auscultation: normal bowel sounds Skin: General skin exam: no rashes or lesions noted Neuro: General: oriented to person and oriented to place Extrem: General: Yes normal to inspection and Yes full ROM Objective Data Current Medications Generic Name Dose Route Start Last Admin Trade Name Freq PRN Reason Stop Dose Admin Acetaminophen 650 mg 04/04/20 20:31 04/04/20 20:35 Acetaminophen 325 Mg Tablet PO 650 mg Q6H PRN Administration Pain and Fever Atorvastatin Calcium 40 mg 04/04/20 21:00 04/08/20 21:28 Atorvastatin Calcium 40 Mg Tablet PO 40 mg BEDTIME DEE Administration Docusate Sodium 100 mg 04/04/20 16:40 Docusate Sodium 100 Mg Capsule PO DAILY PRN Constipation Lorazepam 0.5 mg 04/05/20 08:05 04/08/20 18:07 Lorazepam 0.5 Mg Tablet PO 0.5 mg Q4H PRN Administration anxiety Metoprolol Succinate 100 mg 04/05/20 09:00 04/09/20 08:25 Metoprolol Succinate Er 100 Mg Tab.Er.24h PO 100 mg DAILY DEE Administration Protocol Morphine Sulfate 2 mg 04/05/20 08:05 04/08/20 17:54 Morphine Sulfate 2 Mg/Ml Cartridge IVPUSH 2 mg Q3H PRN Administration pain Morphine Sulfate 15 mg 04/05/20 08:05 04/08/20 19:37 Morphine Sulfate Immed Release 15 Mg Tablet PO 15 mg Q4H PRN Administration pain Ondansetron HCl 4 mg 04/04/20 16:40 04/07/20 00:34 Ondansetron Hcl 4 Mg/2 Ml Vial IVPUSH 4 mg Q8H PRN Administration Nausea and Vomiting Sodium Chloride 2 ml 04/05/20 00:00 04/09/20 08:24 0.9 % Sodium Chloride Flush 3 Ml Syringe IVFLUSH 2 ml QSHIFT [facility] Administration Labs CBC & Chem 7: 04/08/20 06:07 04/09/20 06:14 Labs: Laboratory Results - last 24 hr 04/09/20 04/09/20 06:14 06:15 PT Cancelled INR Cancelled Anion Gap 13 Estim Creat Clear Calc 57.7 Estimated GFR > 60 Random Glucose 92 Calcium 7.6 L Assessment and Plan (1) Acute blood loss anemia: Status: Acute (2) GI bleed: Status: Acute (3) Warfarin-induced coagulopathy: Status: Acute (4) Adjustment disorder with mixed anxiety and depressed mood: Status: Acute Assessment and Plan: An 84-year-old female with history of atrial fibrillation on Coumadin, dyslipidemia, diastolic CHF who presents for INR check after accidentally of around [place] taking wrong dose of Coumadin. acute blood loss anemia, resolved due to supratherapeutic inr 2/2 accidental coumadin overdose hemoglobin has been stable between 7-8 initially patient was refusing all labs, treatments but she did agree to received vitamin K INR Improved back to normal of 1.4 Restarted Warfarin 2.5 mg daily EGD showed mild Gastritis with no ulcers\bleeding Symptomatic anemia Feels more lethargic and SOB today Last Hb 7.3 Refused repeat Hb this morning To check CBC To transfer 2 units of blood atrial fibrillation holding metoprolol and warfarin to restart warfarin and bridge with Lovenox if EGD looks fine diastolic CHF lasix held HLD can hold statin Elevated LFTs Trending down d/t recent cholecystitis/biliary obstruction DVT ppx SCDs, Warfarin
[2020-04-09 16:21] LABS: MANUAL DIFF FLAG NO
[2020-04-09 16:32] LABS: Basophils Percent Auto 0.3 % (0-2); Eosinophils Absolute Auto 0.2 X10*3/uL (0.0-0.4); Eosinophils Percent Auto 1.5 % (0-4); Hematocrit 25.5 % (37-47); Imm Gran Pct Auto 2.9 % (0.0-0.4); Lymphocytes Absolute Auto 1.5 X10*3/uL (1.2-4.9); Lymphocytes Percent Auto 10.7 % (20-40); Mean Corpuscular HGB Conc 31.4 g/dl (31.0-35.0); Mean Corpuscular Hemoglobin 28.6 pg (27.0-33.0); Mean Corpuscular Volume 91.1 fL (80-98); Mean Platelet Volume 10.8 fL (9.4-12.3); Monocytes Absolute Auto 1.4 X10*3/uL (0.1-1.2); Monocytes Percent Auto 10.2 % (2-11); NRBC Pct Auto 0.2 /100WBC (0.0-0.2); Neutrophils Absolute Auto 10.1 X10*3/uL (2.0-8.3); Neutrophils Percent Auto 74.4 % (45-73); Platelet Count 396 X10*3/uL (160-400); Red Cell Distribution Width 17.7 % (11.0-16.0); White Blood Count 13.6 X10*3/uL (4.8-10.8)
[2020-04-09] MEDS: Alteplase Cath Clear 2 MG VIAL INTRACATH (18:22)
[2020-04-09] MEDS: Atorvastatin Calcium 40 MG TABLET PO (20:52)
[2020-04-09] MEDS: Promethazine HCL 25 MG TABLET PO (20:52)
[2020-04-10] MEDS: 0.9 % Sodium Chloride Flush 3 ML SYRINGE 2 ML IVFLUSH (01:12)
[2020-04-10] MEDS: LORazepam 0.5 MG TABLET PO (01:45)
[2020-04-10] MEDS: Acetaminophen 325 MG TABLET 650 MG PO (01:45)
--- NOTE | 2020-04-10 02:23 | MHC.PIE ---
P: Unable to flush Midline line as start of shift. Patient is due for 2 units of PRBCs. H/H 8.0/25.5. Dark bloody stool x2. I: Assessment, Dr. Gastelum made aware. Vitals recorded. Alteplase 2mg IV ordered. Attempted to flush line, 1mg Alteplase instilled, unable to completely adm, line leaked. MD updated and at bedside to discuss plan of care with patient. Patient refusing peripheral line insertion at this time. ~2051; Patient nauseous, oral phenergan given with good effect. E: ~2300; Patient emotional, restless, dry heaving. ~ 300ml of dark bloody stool x1. VSS, Afib rate 90-100's, afebrile. Patient denies sob, chest pain, palpitations, abdominal pain. PRN oral Ativan/Tylenol given with good effect. ~0100; Patient called this RN into room, midline line accidentally pulled out by patient. No bleeding noted at insertion site, dressing applied. ~0230, patient sleeping comfortably, in no obvious distress. Patient remains with no IV access at this time. Day team to re evaluate.
[2020-04-10 02:59] VITALS: BP 135/79; PULSE 113; RESP 18; TEMP 35.9; O2SAT 95
[2020-04-10] MEDS: Morphine Sulfate Immed Release 15 MG TABLET PO (04:03)
[2020-04-10 07:15] LABS: MANUAL DIFF FLAG NO
[2020-04-10 07:28] LABS: Basophils Percent Auto 0.3 % (0-2); Eosinophils Absolute Auto 0.1 X10*3/uL (0.0-0.4); Eosinophils Percent Auto 0.9 % (0-4); Hematocrit 24.8 % (37-47); Hemoglobin 7.9 g/dl (12.0-16.0); Imm Gran Abs Auto 0.46 X10*3/uL (0.00-0.03); Imm Gran Pct Auto 3.6 % (0.0-0.4); Lymphocytes Absolute Auto 1.3 X10*3/uL (1.2-4.9); Mean Corpuscular HGB Conc 31.9 g/dl (31.0-35.0); Mean Corpuscular Hemoglobin 28.7 pg (27.0-33.0); Mean Corpuscular Volume 90.2 fL (80-98); Mean Platelet Volume 10.6 fL (9.4-12.3); Monocytes Absolute Auto 1.3 X10*3/uL (0.1-1.2); Monocytes Percent Auto 10.3 % (2-11); NRBC Pct Auto 0.2 /100WBC (0.0-0.2); Neutrophils Absolute Auto 9.5 X10*3/uL (2.0-8.3); Neutrophils Percent Auto 74.9 % (45-73); Platelet Count 385 X10*3/uL (160-400); Red Blood Count 2.75 X10*6/uL (4.20-5.50); Red Cell Distribution Width 17.4 % (11.0-16.0); White Blood Count 12.7 X10*3/uL (4.8-10.8)
[2020-04-10 07:53] LABS: Anion Gap 15 (12-20); Blood Urea Nitrogen 26 mg/dL (9-16); Calcium 7.5 mg/dL (8.4-10.2); Carbon Dioxide 25 mmol/L (22-29); Chloride 96 mmol/L (96-108); Creatinine Clr Calc Pharmacy 40.7; Estimated Glomerular Filt Rate 46; Glucose Random 116 mg/dL (60-115); Potassium 4.5 mmol/l (3.3-5.1); Sodium 131 mmol/L (135-145)
[2020-04-10 08:00] VITALS: BP 118/62; PULSE 105; RESP 18; TEMP 36.6; O2SAT 95
[2020-04-10 08:44] LABS: INTERNATIONAL NORM RATIO 9.2 (0.9-1.1)
[2020-04-10] MEDS: Metoprolol Succinate ER 100 MG TAB.ER.24H PO (09:31)
[2020-04-10] MEDS: Phytonadione (Vit K1) Oral 10 MG/ML AMPUL PO (09:32)
[2020-04-10 12:00] VITALS: BP 115/65; PULSE 78; RESP 19; TEMP 35.6; O2SAT 100
--- NOTE | 2020-04-10 12:26 | P.CNHO_ITS ---
Subjective - Subjective Chief complaint: elevated INR. Patient: new to practice Requesting Physician: Nirav. Primary Care Provider: Lex Velazco MD Medical Summary: DIAGNOSIS: UPPER GI BLEEDING. RELATED TO ELEVATED INR, FROM ACCIDENTAL WARFARIN OVERDOSE. HPI - Consult Narrative Reason for consult: ELEVATED INR Narrative: This is a pleasant 84 year old lady who was initially seen in the ER April 02. This happened after she accidentally took 25 mg of Coumadin instead of 2.5 mg. INR was checked and was normal. she was advised to follow-up which she did on April 04. INR this time was 14.9. there was no obvious bleeding. she had a headache. CT head was negative. she was admitted overnight observation. she was given can mg vitamin K orally. warfarin was held and plan was to follow INR. However the patient has started developing hematemesis and had melena. Baseline hemoglobin was 12.6 on 04/04. it dropped to in the 7 and then down to 4 range. She received blood transfusions. The patient has been rather undecided about her wishes, declining labs/ transfusion sometimes and sometimes agreeable. she was evaluated by GI. She underwent an upper endoscopy which revealed gastritis but no ulcers. Once the hemoglobin stabilized and there was no evidence for further active bleeding, she was rechallenged with warfarin, 5 mg does. However her INR went to 9.2. further warfarin is on hold. A hematology consult is being called for further management. Review of Systems - ENT Reports system reviewed and no additional complaints, except as documented - Cardiovascular Denies chest pain at rest - Respiratory Denies cough - Gastrointestinal Reports abdominal pain, Reports black, tarry stools, Reports diarrhea, Reports nausea - Genitourinary Denies abnormal periods - Musculoskeletal Reports decreased muscle mass, Reports limited joint movement [facility] [place] Medical History: Medical History (Last Reviewed 04/17/20 @ 21:38 by Dino Paredes MD) Abnormal transaminases Adjustment disorder with mixed anxiety and depressed mood Anemia Aspiration pneumonia Atrial fibrillation Biliary stricture Breast cancer Cholecystostomy tube dysfunction Diastolic CHF GI bleed High cholesterol HTN (hypertension) Hypothyroid NSTEMI (non-ST elevated myocardial infarction) Psoriasis Restless leg syndrome Stomach cancer Uterine cancer Surgical History: Surgical History (Last Reviewed 04/19/20 @ 10:31 by Ray Rae MD) History of cardiac catheterization History of partial gastrectomy S/P breast lumpectomy S/P [id number] (total abdominal hysterectomy and bilateral salpingo-oophorectomy) Smoking status: Never smoker Home Medications and Allergies Current Medications: Current Medications Generic Name Dose Route Start Last Admin Trade Name Freq PRN Reason Stop Dose Admin Acetaminophen 650 mg 04/04/20 20:31 04/10/20 01:45 Acetaminophen 325 Mg Tablet PO 650 mg Q6H PRN Administration Pain and Fever Atorvastatin Calcium 40 mg 04/04/20 21:00 04/09/20 20:52 Atorvastatin Calcium 40 Mg Tablet PO 40 mg BEDTIME DEE Administration Docusate Sodium 100 mg 04/04/20 16:40 Docusate Sodium 100 Mg Capsule PO DAILY PRN Constipation Metoprolol Succinate 100 mg 04/05/20 09:00 04/10/20 09:31 Metoprolol Succinate Er 100 Mg Tab.Er.24h PO 100 mg DAILY DEE Administration Protocol Ondansetron HCl 4 mg 04/04/20 16:40 04/07/20 00:34 Ondansetron Hcl 4 Mg/2 Ml Vial IVPUSH 4 mg Q8H PRN Administration Nausea and Vomiting Sodium Chloride 2 ml 04/05/20 00:00 04/10/20 09:33 0.9 % Sodium Chloride Flush 3 Ml Syringe IVFLUSH Not Given QSHIFT [facility] Home Medications Medication Instructions Recorded Confirmed Type atorvastatin 1 tab PO BEDTIME 04/04/20 04/16/20 History calcipotriene 1 applic TOPICAL BID 04/04/20 04/16/20 History furosemide 1 tab PO DAILY 04/04/20 04/16/20 History metoprolol succinate 1 tab PO DAILY 04/04/20 04/16/20 History levothyroxine 88 mcg PO QAM 04/16/20 04/17/20 History Allergies Allergy/AdvReac Type Severity Reaction Status Date / Time amlodipine Allergy Unknown Unknown Verified 04/05/20 04:24 lisinopril Allergy Unknown Unknown Verified 04/05/20 04:24 acetaminophen AdvReac Unknown VOMITING Verified 04/05/20 04:24 [From Tylenol-Codeine] Codeine Phosphate Allergy Unknown vomiting Uncoded 04/05/20 04:24 Codeine Sulfate Allergy Unknown Unknown Uncoded 04/05/20 04:24 From Tylenol-Codeine AdvReac Unknown VOMITING Uncoded 04/05/20 04:24 Physical Exam Vital signs: Vital Signs Temp 96.1 F L 04/10/20 12:00 Pulse 78 04/10/20 12:00 Resp 19 04/10/20 12:00 BP 115/65 04/10/20 12:00 Pulse Ox 100 04/10/20 12:00 Intake & Output 04/09/20 04/10/20 04/10/20 18:59 06:59 18:59 Intake Total 240 / 600 360 / 600 Output Total 2 / 482 480 / 482 Balance 238 / 118 -120 / 118 Urine Output (Average ml/kg/hr) 0.00 0.28 Intake: Intake, Oral Amount 240 / 600 360 / 600 Output: Output, Urine Amount 1 / 301 300 / 301 Output, Stool Amount 1 / 1 Output, Drainage Amount 180 / 180 Left 180 / 180 Other: Meal Refused No NPO No Breakfast % Eaten 100% Number of Bowel Movements 1 1 Urine Bedside Commode Bedside Commode Urine Color Yellow Bloody Stool Bedside Commode Stool Color Blood Tinged Stool Consistency Liquid Weight 90.5 kg - Constitutional Present: no acute distress - Routine HEENT Exam Head: Present: normal inspection Eye: Present: normal appearance ENT: Present: mucous membranes moist - Routine Neck Exam Present: supple - Routine Respiratory Exam Present: decreased breath sounds - Routine Cardiovascular Exam Cardiovascular: Present: RRR, S1, S2 - Routine Abdominal Exam Present: soft, nontender - Routine Rectal Exam Patient deferred: digital exam - Routine Skin Exam Present: intact - Routine Neurological Exam Present: altered mental status - Detailed Neurological Exam: Coma Scale Eye Opening: Spontaneous (4) Hem/Onc Consult Result - Labs CBC & Chem 7: 04/13/20 05:35 04/12/20 05:57 Labs: Short CBC 04/09/20 04/10/20 Range/Units 15:55 06:19 WBC 13.6 H 12.7 H (4.8-10.8) X10*3/uL Hgb 8.0 L 7.9 L (12.0-16.0) g/dl Hct 25.5 L 24.8 L (37-47) % Plt Count 396 D 385 (160-400) X10*3/uL BMP 04/10/20 06:19 Sodium 131 L Potassium 4.5 Chloride 96 Carbon Dioxide 25 BUN 26 H Creatinine 1.12 Calcium 7.5 L Assessment and Plan (1) Warfarin-induced coagulopathy Status: Acute This is a pleasant unfortunate 84-year-old lady who presented after an accidental warfarin overdose. Initial INR was around 15 on 04/04. She was noted to have an upper GI bleed, likely related to the coagulopathy. Endoscopy being negative for any focal lesion. She was resuscitated with packed RBC, FFP and vitamin K replacement therapy. Her INR went up rather quickly after she was rechallenged with warfarin yesterday. It appears that she is overly sensitive to the warfarin, at this point. Likely contributed to by her poor nutrition. PLAN: I would recommend holding the warfarin for a week to 10 days to completely reverse, the warfarin effect. Can then restart it but going with the very low does 1-2 mg to begin with, and then monitoring INR carefully. This can be done as an outpatient. thank you for this consult, Will follow along with you, cc: Dr. Velazco. Dr. Paredes.
--- NOTE | 2020-04-10 13:54 | P.PNIM_ITS ---
Subjective Subjective Date of Service: 04/10/20 Interval History: the patient was seen and evaluated this morning Laying in bed, feels lethargic and tired Denies any fever, chills or shortness of breath back diary bowel movement, stable hemoglobin level No reported other overnight events. Review of Systems Review of Systems: Yes all other systems are reviewed and are negative Physical Exam Vital Signs: Vital Signs: Vital Signs Temp Pulse Resp BP Pulse Ox 04/10/20 12:00 96.1 F L 78 19 115/65 100 04/10/20 08:00 97.8 F 105 H 18 118/62 95 04/10/20 02:59 96.6 F L 113 H 18 135/79 95 04/09/20 22:58 96.4 F L 97 18 113/68 99 04/09/20 19:00 97.6 F 80 18 122/76 98 04/09/20 16:00 96.8 F 86 18 106/58 L 95 Body Mass Index 34.2 Constitutional : Alert, oriented, not in distress Neck : Normal inspection, Supple Cardiovascular : RRR, S1 S2, no lower extremity edema Respiratory : Good bilateral air entry, no crackles, wheezes or rhonchi Gastrointestinal: soft, lax, Normal bowel sounds, Non tender Skin : Warm/Dry, No rash Neurological : Alert & oriented x3, No focal deficit Objective Data Current Medications Generic Name Dose Route Start Last Admin Trade Name Freq PRN Reason Stop Dose Admin Acetaminophen 650 mg 04/04/20 20:31 04/10/20 01:45 Acetaminophen 325 Mg Tablet PO 650 mg Q6H PRN Administration Pain and Fever Atorvastatin Calcium 40 mg 04/04/20 21:00 04/09/20 20:52 Atorvastatin Calcium 40 Mg Tablet PO 40 mg BEDTIME DEE Administration Docusate Sodium 100 mg 04/04/20 16:40 Docusate Sodium 100 Mg Capsule PO DAILY PRN Constipation Metoprolol Succinate 100 mg 04/05/20 09:00 04/10/20 09:31 Metoprolol Succinate Er 100 Mg Tab.Er.24h PO 100 mg DAILY DEE Administration Protocol Ondansetron HCl 4 mg 04/04/20 16:40 04/07/20 00:34 Ondansetron Hcl 4 Mg/2 Ml Vial IVPUSH 4 mg Q8H PRN Administration Nausea and Vomiting Sodium Chloride 2 ml 04/05/20 00:00 04/10/20 09:33 0.9 % Sodium Chloride Flush 3 Ml Syringe IVFLUSH Not Given QSHIFT [facility] Labs CBC & Chem 7: 04/10/20 06:19 04/10/20 06:19 Assessment and Plan (1) GI bleed: Status: Acute (2) Acute blood loss anemia: Status: Acute (3) Warfarin-induced coagulopathy: Status: Acute (4) High cholesterol: Status: Acute (5) Adjustment disorder with mixed anxiety and depressed mood: Status: Acute Assessment and Plan: An 84-year-old female with history of atrial fibrillation on Coumadin, dyslipidemia, diastolic CHF who presents for INR check after accidentally of around [place] taking wrong dose of Coumadin. acute blood loss anemia, resolved Supratherapeutic inr 2/2 accidental coumadin overdose hemoglobin has been stable between 7-8 initially patient was refusing all labs, treatments but she did agree to received vitamin K INR Improved back to normal of 1.4 Restarted With worsening INR of 9 Hold warfarin for 1 week EGD showed mild Gastritis with no ulcers\bleeding Symptomatic anemia Feels more lethargic and SOB today Last Hb 8 Refused repeat Hb this morning monitor CBC atrial fibrillation holding metoprolol and warfarin to restart warfarin and bridge with Lovenox if EGD looks fine diastolic CHF lasix held HLD can hold statin Elevated LFTs Trending down d/t recent cholecystitis/biliary obstruction DVT ppx SCDs, Warfarin
[2020-04-10 15:32] VITALS: BP 108/63; PULSE 83; RESP 18; TEMP 35.9; O2SAT 94
[2020-04-10 20:00] VITALS: BP 113/56; PULSE 75; RESP 18; TEMP 36.6; O2SAT 95
[2020-04-10] MEDS: Atorvastatin Calcium 40 MG TABLET PO (22:31)
[2020-04-10 23:36] VITALS: BP 120/56; PULSE 94; RESP 18; TEMP 36.7; O2SAT 90
[2020-04-11] VITALS (8 sets, daily range): BP systolic 109–132; BP diastolic 50–76; PULSE 81–112; RESP 18–20; TEMP 36.2–36.5; O2SAT 90–95
--- NOTE | 2020-04-11 | XR_ITS ---
EXAMINATION: XR CHEST CLINICAL INFORMATION: Hypoxemia and elevated WBC. Evaluate for pneumonia. COMPARISON: CXR from 06/06/2017 TECHNIQUE: Frontal view of the chest was obtained. FINDINGS: Lungs are well expanded. A small area of patchy opacity is present in the right lower lung zone, suspicious for pneumonia, and new compared to 06/06/2017. Otherwise, lungs are not appreciably changed in appearance compared to the prior radiograph. No pleural effusion. Cardiomediastinal silhouette is normal in size and contour. Atherosclerotic calcification of the aorta. The visualized bones are intact.. IMPRESSION: Mild patchy opacity in right lower lung is suspicious for pneumonia.
[2020-04-11 07:55] LABS: MANUAL DIFF FLAG NO
[2020-04-11] MEDS: Metoprolol Succinate ER 100 MG TAB.ER.24H PO (08:06)
[2020-04-11 08:07] LABS: Basophils Absolute Auto 0.1 X10*3/uL (0.0-0.2); Basophils Percent Auto 0.4 % (0-2); Eosinophils Absolute Auto 0.2 X10*3/uL (0.0-0.4); Eosinophils Percent Auto 1.1 % (0-4); Hematocrit 26.7 % (37-47); Hemoglobin 8.6 g/dl (12.0-16.0); Imm Gran Abs Auto 0.86 X10*3/uL (0.00-0.03); Lymphocytes Absolute Auto 1.4 X10*3/uL (1.2-4.9); Lymphocytes Percent Auto 8.1 % (20-40); Mean Corpuscular HGB Conc 32.2 g/dl (31.0-35.0); Mean Corpuscular Hemoglobin 29.1 pg (27.0-33.0); Mean Corpuscular Volume 90.2 fL (80-98); Mean Platelet Volume 10.7 fL (9.4-12.3); Monocytes Absolute Auto 1.3 X10*3/uL (0.1-1.2); Monocytes Percent Auto 7.7 % (2-11); NRBC Pct Auto 0.5 /100WBC (0.0-0.2); Neutrophils Absolute Auto 13.3 X10*3/uL (2.0-8.3); Neutrophils Percent Auto 77.7 % (45-73); Platelet Count 425 X10*3/uL (160-400); Red Blood Count 2.96 X10*6/uL (4.20-5.50); Red Cell Distribution Width 17.6 % (11.0-16.0); White Blood Count 17.1 X10*3/uL (4.8-10.8)
[2020-04-11 08:25] LABS: Anion Gap 16 (12-20); Blood Urea Nitrogen 24 mg/dL (9-16); Calcium 7.8 mg/dL (8.4-10.2); Carbon Dioxide 24 mmol/L (22-29); Chloride 97 mmol/L (96-108); Estimated Glomerular Filt Rate > 60; Glucose Random 103 mg/dL (60-115); Potassium 4.7 mmol/l (3.3-5.1); Sodium 132 mmol/L (135-145)
[2020-04-11 08:29] LABS: Prothrombin Time 95.1 SEC (10.8-13.0)
[2020-04-11 09:25] LABS: INTERNATIONAL NORM RATIO 7.8 (0.9-1.1)
[2020-04-11] MEDS: Acetaminophen 325 MG TABLET 650 MG PO ×2 (10:21→22:26)
[2020-04-11] MEDS: Phytonadione (Vit K1) Oral 10 MG/ML AMPUL PO (11:45)
[2020-04-11] MEDS: Morphine Sulfate Immed Release 15 MG TABLET 7.5 MG PO (11:46)
--- NOTE | 2020-04-11 15:46 | HO.PM.IMPN ---
Subjective Subjective Interval History: the patient was seen and evaluated this morning Laying in bed, feels lethargic and tired Oxygen level has dropped to 90 on room Patient anxious, refusing to get any IV lines keeps saying that she wants to go home and . I explained to her that she is not actively dying at this point and she needed to get treatment. Denies any fever, chills or shortness of breath Having bowel movement, stable hemoglobin level No reported other overnight events. Physical Exam Vital Signs: Vital Signs: Vital Signs Temp Pulse Resp BP Pulse Ox 04/11/20 15:34 97.7 F 86 18 112/60 90 L 04/11/20 12:00 97.4 F 90 20 132/76 95 04/11/20 11:20 18 04/11/20 08:06 112 H 132/62 04/11/20 08:00 97.7 F 109 H 20 132/62 94 04/11/20 03:13 97.6 F 88 18 122/50 L 90 L 04/10/20 23:36 98.0 F 94 18 120/56 L 90 L 04/10/20 20:00 98 F 75 18 113/56 L 95 Body Mass Index 34.2 Constitutional : Alert, oriented, on Neck : Normal inspection, Supple Cardiovascular : RRR, S1 S2, no lower extremity edema Respiratory : Good bilateral air entry, no crackles, wheezes or rhonchi Gastrointestinal: soft, lax, Normal bowel sounds, Non tender Skin : Warm/Dry, No rash Neurological : Alert & oriented x3, No focal deficit Const: General: cooperative and comfortable Orientation/consciousness: oriented to person and oriented to place Neck: Neck: Yes normal visual inspection and Yes full ROM Resp: Effort & Inspection: normal respiratory effort Auscultation: clear to auscultation bilaterally Cardio: Jugular venous distension: no JVD Rate: regular rate Heart sounds: S1 normal heart sound present and S2 normal heart sound present GI: Inspection: Yes normal to inspection Auscultation: normal bowel sounds Skin: General skin exam: no rashes or lesions noted Neuro: General: oriented to person and oriented to place Extrem: General: Yes normal to inspection and Yes full ROM Objective Data Current Medications Generic Name Dose Route Start Last Admin Trade Name Freq PRN Reason Stop Dose Admin Acetaminophen 650 mg 04/11/20 16:00 Acetaminophen 325 Mg Tablet PO Q6H [facility] Atorvastatin Calcium 40 mg 10/04/20 21:00 04/10/20 22:31 Atorvastatin Calcium 40 Mg Tablet PO 40 mg BEDTIME DEE Administration Cefuroxime Axetil 500 mg 04/11/20 12:00 04/11/20 11:46 Cefuroxime Axetil 500 Mg Tablet PO 500 mg Q12H DEE Administration Docusate Sodium 100 mg 04/04/20 16:40 Docusate Sodium 100 Mg Capsule PO DAILY PRN Constipation Doxycycline Hyclate 100 mg 04/11/20 11:00 04/11/20 11:46 Doxycycline Hyclate 100 Mg Tablet PO 100 mg Q12H [facility] Administration Metoprolol Succinate 100 mg 04/05/20 09:00 04/11/20 08:06 Metoprolol Succinate Er 100 Mg Tab.Er.24h PO 100 mg DAILY DEE Administration Protocol Morphine Sulfate 7.5 mg 04/11/20 10:38 04/11/20 11:46 Morphine Sulfate Immed Release 15 Mg Tablet PO 7.5 mg Q6H PRN Administration Pain, Severe (Pain Scale 7-10) Ondansetron HCl 4 mg 04/04/20 16:40 04/07/20 00:34 Ondansetron Hcl 4 Mg/2 Ml Vial IVPUSH 4 mg Q8H PRN Administration Nausea and Vomiting Sodium Chloride 2 ml 04/05/20 00:00 04/11/20 08:05 0.9 % Sodium Chloride Flush 3 Ml Syringe IVFLUSH Not Given QSHIFT [facility] Labs CBC & Chem 7: 04/11/20 07:09 04/11/20 07:09 Assessment and Plan (1) GI bleed: Status: Acute (2) Acute blood loss anemia: Status: Acute (3) Warfarin-induced coagulopathy: Status: Acute (4) High cholesterol: Status: Acute (5) Adjustment disorder with mixed anxiety and depressed mood: Status: Acute Assessment and Plan: An 84-year-old female with history of atrial fibrillation on Coumadin, dyslipidemia, diastolic CHF who presents for INR check after accidentally of around 20 taking wrong dose of Coumadin. sepsis aspiration pneumonia CXR showing right-sided infiltrate elevated WBCs, tachycardia with source of infection Patient refusing IV lines and blood draws, will not do blood culture lactic acid Refusing IV antibiotics To give oral antibiotic of doxycycline and Ceftin for now Continue to monitor O2 sat, oxygen as needed Supratherapeutic inr hemoglobin has been stable between 7-8 initially patient was refusing all labs, treatments but she did agree to received vitamin K INR Improved back to normal of 1.4 Restarted With worsening INR of 7.6 today Extra dose of vitamin K p.o. Hold warfarin for 1 week EGD showed mild Gastritis with no ulcers\bleeding acute blood loss anemia, resolved Symptomatic anemia Feels more lethargic Last Hb 8 Refused repeat Hb this morning monitor CBC atrial fibrillation holding metoprolol and warfarin to restart warfarin and bridge with Lovenox if EGD looks fine diastolic CHF lasix held HLD can hold statin Elevated LFTs Trending down d/t recent cholecystitis/biliary obstruction DVT ppx SCDs, Warfarin (6) Aspiration pneumonia: Status: Acute
[2020-04-11 15:57] LABS: SARS COV2 PCR INHOUSE NEGATIVE (Negative)
[2020-04-11] MEDS: 0.9 % Sodium Chloride Flush 3 ML SYRINGE 2 ML IVFLUSH (17:47)
[2020-04-11] MEDS: Atorvastatin Calcium 40 MG TABLET PO (20:33)
[2020-04-12] VITALS (8 sets, daily range): BP systolic 113–154; BP diastolic 58–79; PULSE 66–95; RESP 16–20; TEMP 36.3–37.1; O2SAT 91–98
[2020-04-12] MEDS: Acetaminophen 325 MG TABLET 650 MG PO ×2 (04:58→10:23)
[2020-04-12 06:41] LABS: Appearance Urine HAZY; Color Urine AMBER; Glucose Urine UA NEG (NEG); Leukocyte Esterase Urine TRACE (NEG); Nitrite Urine NEG (NEG); Specific Gravity - Urine 1.025 (1.005-1.025); Urine Blood NEG (NEG); Urine Ketones NEG (NEG); Urine Protein TRACE MG/DL (NEG-TRACE)
[2020-04-12 06:55] LABS: Amorphous Sediment Urine 2+ /LPF; RBC Urine 0 /HPF (0); Squamous Epithelial Cell Urine 2+ /LPF
[2020-04-12 07:08] LABS: Hematocrit 26.8 % (37-47); Hemoglobin 8.6 g/dl (12.0-16.0); Mean Corpuscular HGB Conc 32.1 g/dl (31.0-35.0); Mean Corpuscular Hemoglobin 28.8 pg (27.0-33.0); Mean Corpuscular Volume 89.6 fL (80-98); Mean Platelet Volume 10.3 fL (9.4-12.3); NRBC Pct Auto 0.4 /100WBC (0.0-0.2); Platelet Count 433 X10*3/uL (160-400); Red Blood Count 2.99 X10*6/uL (4.20-5.50); Red Cell Distribution Width 17.9 % (11.0-16.0); White Blood Count 16.4 X10*3/uL (4.8-10.8)
[2020-04-12 07:15] LABS: INTERNATIONAL NORM RATIO 4.3 (0.9-1.1); Prothrombin Time 52.4 SEC (10.8-13.0)
[2020-04-12 07:33] LABS: Alanine Aminotransferase 29 U/L (0-31); Albumin Level 2.5 g/dL (3.5-5.0); Alkaline Phosphatase 295 U/L (39-117); Anion Gap 14 (12-20); Aspartate Amino Transferase 54 U/L (5-31); Bilirubin Total 3.6 mg/dL (0.0-1.0); Blood Urea Nitrogen 22 mg/dL (9-16); Calcium 7.5 mg/dL (8.4-10.2); Carbon Dioxide 24 mmol/L (22-29); Chloride 97 mmol/L (96-108); Creatinine Clr Calc Pharmacy 55.6; Estimated Glomerular Filt Rate > 60; Glucose Random 102 mg/dL (60-115); Sodium 131 mmol/L (135-145); Total Protein 5.5 g/dL (6.5-8.0)
[2020-04-12 07:55] LABS: Neutrophils Percent Manual 81 % (45-73)
[2020-04-12 07:56] LABS: Band Neutrophils Percent 3 % (3-5); Eosinophils Absolute Manual 0.5 X10*3/UL (0.0-0.8); Eosinophils Percent Manual 3 % (0-4); Lymphocytes Absolute Manual 1.1 X10*3/uL (0.6-4.8); Lymphocytes Percent Manual 7 % (20-40); Metamyelocytes Absolute 0.2 X10*3/uL; Metamyelocytes Percent 1 %; Monocytes Absolute Manual 0.8 X10*3/uL (0.0-1.2); Monocytes Percent Manual 5 % (2-11); Neutrophils Absolute Manual 13.8 X10*3/uL (2.2-7.9)
[2020-04-12 07:58] LABS: Hypochromasia 1+; RBC Morphology NOTED
[2020-04-12 08:01] LABS: Platelet Estimate INCREASED (NORMAL); Platelet Morphology Comment NORMAL; Polychromasia 1+
--- NOTE | 2020-04-12 09:54 | MHC.CM.PN ---
TIFFANIE met with pt and her daughter who was at bedside. TIFFANIE informed the pt was hoping to go to [facility], however they are not offering a bed. TIFFANIE provided a list of contracted facilities and after review, pts daughter reported they would prefer [facility] . TIFFANIE spoke to [facility] liaison who reports they will need an updated PT evaluation for the insurance company before they will be able to obtain auth.
[2020-04-12] MEDS: Metoprolol Succinate ER 100 MG TAB.ER.24H PO (10:22)
--- NOTE | 2020-04-12 12:59 | MHC.CM.PN ---
updates PT assessment and recent progress notes were sent to [facility] . [facility] has submitted clinical info to pts insurance company and requested authorization for pt to attend [facility]. Pt is cleared to DC today and will DC to [facility] pending auth
--- NOTE | 2020-04-12 13:50 | MHC.CM.PN ---
CM received a message from [employer] liaison indicating the pts insurance company is closed for the holiday so they will not be able to obtain auth before tomorrow. Pt will also need a less than 30 day order and HCP. Need for less than 30 relayed to MD and CM will follow up on HCP today
--- NOTE | 2020-04-12 15:23 | HO.PM.IMPN ---
Subjective Subjective Interval History: the patient was seen and evaluated this morning Laying in bed, feels much better today Oxygen level stable on 2 L of oxygen Patient continue to refusing to get any IV lines and IV treatment. Denies any fever, chills or shortness of breath Having bowel movement, stable hemoglobin level No reported other overnight events. Physical Exam Vital Signs: Vital Signs: Vital Signs Temp Pulse Resp BP Pulse Ox 04/12/20 15:21 97.5 F 92 20 130/64 93 04/12/20 12:08 84 131/70 94 04/12/20 12:00 97.4 F 95 20 154/59 H 93 04/12/20 07:30 97.4 F 84 20 131/70 94 04/12/20 03:49 97.6 F 84 16 113/58 L 94 04/12/20 00:00 98.0 F 81 16 131/75 98 04/11/20 20:00 97.2 F 81 18 109/62 95 04/11/20 17:23 93 04/11/20 15:34 97.7 F 86 18 112/60 90 L Body Mass Index 34.2 Constitutional : Alert, oriented, on Neck : Normal inspection, Supple Cardiovascular : RRR, S1 S2, no lower extremity edema Respiratory : Good bilateral air entry, basal right-sided crackles, wheezes or rhonchi Gastrointestinal: soft, lax, Normal bowel sounds, Non tender Skin : Warm/Dry, No rash Neurological : Alert & oriented x3, No focal deficit Objective Data Current Medications Generic Name Dose Route Start Last Admin Trade Name Freq PRN Reason Stop Dose Admin Acetaminophen 650 mg 04/11/20 16:00 04/12/20 10:23 Acetaminophen 325 Mg Tablet PO 650 mg Q6H DEE Administration Atorvastatin Calcium 40 mg 04/04/20 21:00 04/11/20 20:33 Atorvastatin Calcium 40 Mg Tablet PO 40 mg BEDTIME DEE Administration Cefuroxime Axetil 500 mg 04/11/20 12:00 04/12/20 10:22 Cefuroxime Axetil 500 Mg Tablet PO 500 mg Q12H DEE Administration Docusate Sodium 100 mg 04/04/20 16:40 Docusate Sodium 100 Mg Capsule PO DAILY PRN Constipation Doxycycline Hyclate 100 mg 04/11/20 11:00 04/12/20 10:22 Doxycycline Hyclate 100 Mg Tablet PO 100 mg Q12H DEE Administration Metoprolol Succinate 100 mg 04/05/20 09:00 04/12/20 10:22 Metoprolol Succinate Er 100 Mg Tab.Er.24h PO 100 mg DAILY DEE Administration Protocol Morphine Sulfate 7.5 mg 04/11/20 10:38 04/11/20 11:46 Morphine Sulfate Immed Release 15 Mg Tablet PO 7.5 mg Q6H PRN Administration Pain, Severe (Pain Scale 7-10) Ondansetron HCl 4 mg 04/04/20 16:40 04/07/20 00:34 Ondansetron Hcl 4 Mg/2 Ml Vial IVPUSH 4 mg Q8H PRN Administration Nausea and Vomiting Ondansetron HCl 4 mg 04/11/20 17:27 04/11/20 17:47 Ondansetron Odt 4 Mg Tab.Rapdis TRANSLINGU 4 mg Q8H PRN Administration Nausea Sodium Chloride 2 ml 04/05/20 00:00 04/12/20 10:30 0.9 % Sodium Chloride Flush 3 Ml Syringe IVFLUSH Not Given QSHIFT COUNT INCLUDES THE [facility] Labs CBC & Chem 7: 04/12/20 05:57 04/12/20 05:57 Assessment and Plan (1) GI bleed: Status: Acute (2) Acute blood loss anemia: Status: Acute (3) Warfarin-induced coagulopathy: Status: Acute (4) High cholesterol: Status: Acute (5) Adjustment disorder with mixed anxiety and depressed mood: Status: Acute Assessment and Plan: An 84-year-old female with history of atrial fibrillation on Coumadin, dyslipidemia, diastolic CHF who presents for INR check after accidentally of around 20 taking wrong dose of Coumadin. sepsis, resolved aspiration pneumonia CXR showing right-sided infiltrate elevated remains WBCs Patient refusing IV lines and blood draws, will not do blood culture lactic acid Refusing IV antibiotics continue oral antibiotic of doxycycline and Ceftin for now Continue to monitor O2 sat, oxygen as needed Supratherapeutic inr hemoglobin has been stable between 8.6 initially patient was refusing all labs, treatments but she did agree to received vitamin K INR Improved back to normal of 1.4 Restarted With worsening INR of 4.2 today Extra dose of vitamin K p.o. Hold warfarin for 1 week EGD showed mild Gastritis with no ulcers\bleeding acute blood loss anemia, resolved Symptomatic anemia Feels more lethargic Last Hb 8 Refused repeat Hb this morning monitor CBC atrial fibrillation holding metoprolol and warfarin to restart warfarin and bridge with Lovenox if EGD looks fine diastolic CHF lasix held HLD can hold statin Elevated LFTs Trending down d/t recent cholecystitis/biliary obstruction DVT ppx SCDs, Warfarin the patient prolonged hospital stay with multiple decisions contradicting each other's. At this point of treatment she does not want any IV lines IV treatment but she is agreeable to do blood work. will continue with oral antibiotics with planning to discharge her to SNF (6) Aspiration pneumonia: Status: Acute
--- NOTE | 2020-04-12 15:30 | MHC.CM.PN ---
CM Spoke to pt and her daughter/alternate HCP, Aniyah about the barriers to DC. Both indicate understanding that the pt will DC tomorrow following review by her insurance company. Pts daughter also provided a copy of pts HCP which was sent to [facility]. DC plan is [facility] at pending insurance auth tomorrow 04/13/20 via S
[2020-04-12] MEDS: Morphine Sulfate Immed Release 15 MG TABLET 7.5 MG PO (17:38)
[2020-04-12] MEDS: Atorvastatin Calcium 40 MG TABLET PO (22:21)
[2020-04-13] VITALS (8 sets, daily range): BP systolic 106–138; BP diastolic 59–68; PULSE 68–88; RESP 16–19; TEMP 36–37.1; O2SAT 90–97
[2020-04-13] MEDS: Morphine Sulfate Immed Release 15 MG TABLET 7.5 MG PO ×2 (01:25→12:27)
[2020-04-13 06:41] LABS: INTERNATIONAL NORM RATIO 4.8 (0.9-1.1); Prothrombin Time 57.7 SEC (10.8-13.0)
[2020-04-13 06:42] LABS: Hematocrit 27.8 % (37-47); Hemoglobin 8.9 g/dl (12.0-16.0); Mean Corpuscular Volume 90.6 fL (80-98); Mean Platelet Volume 10.2 fL (9.4-12.3); NRBC Pct Auto 0.3 /100WBC (0.0-0.2); Platelet Count 424 X10*3/uL (160-400); Red Blood Count 3.07 X10*6/uL (4.20-5.50); Red Cell Distribution Width 18.3 % (11.0-16.0); White Blood Count 18.4 X10*3/uL (4.8-10.8)
[2020-04-13 08:23] LABS: Band Neutrophils Percent 2 % (3-5); Basophils Abs Manual 0.2 X10*3/uL (0.0-0.3); Basophils Percent Manual 1 % (0-1); Eosinophils Absolute Manual 0.4 X10*3/UL (0.0-0.8); Eosinophils Percent Manual 2 % (0-4); Lymphocytes Absolute Manual 0.7 X10*3/uL (0.6-4.8); Lymphocytes Percent Manual 4 % (20-40); Metamyelocytes Absolute 0.2 X10*3/uL; Metamyelocytes Percent 1 %; Monocytes Absolute Manual 0.7 X10*3/uL (0.0-1.2); Monocytes Percent Manual 4 % (2-11); Neutrophils Absolute Manual 16.2 X10*3/uL (2.2-7.9); Neutrophils Percent Manual 86 % (45-73); Nucleated Red Blood Cells 1 /100WBC (0-0)
[2020-04-13] MEDS: Metoprolol Succinate ER 100 MG TAB.ER.24H PO (08:24)
[2020-04-13] MEDS: 0.9 % Sodium Chloride Flush 3 ML SYRINGE 2 ML IVFLUSH ×2 (08:24→15:35)
[2020-04-13 08:25] LABS: Platelet Estimate INCREASED (NORMAL); Platelet Morphology Comment NORMAL; RBC Morphology NOTED
[2020-04-13] MEDS: Docusate Sodium 100 MG CAPSULE PO (08:26)
[2020-04-13 08:28] LABS: Acanthocytes 3+; Ovalocytes 1+; Polychromasia 2+
--- NOTE | 2020-04-13 14:59 | P.DS_ITS ---
DS: Providers Provider Date of admission: 04/04/20 17:00 Primary care physician: Lex Velazco MD Consults: 04/04/20 17:40 Consult to Gastroenterology Routine Consulting Provider: Luz Hoyt Reason for consultation: gib; coumadin coagulopathy inr 14 04/05/20 05:55 Consult to Psychiatry Routine Consulting Provider: Behavioral Health Specialist Reason for consultation: depression Has provider been notified: No 04/10/20 08:48 Consult to Hematology / Oncology Routine Consulting Provider: Radhika Dueñas Reason for consultation: recurrent high INR levels on Warfarin, Hx Afib, GI bleed for your kind eval DS: Diagnosis Discharge Diagnosis (1) GI bleed: Status: Acute (2) Acute blood loss anemia: Status: Acute (3) Warfarin-induced coagulopathy: Status: Acute (4) High cholesterol: Status: Acute (5) Adjustment disorder with mixed anxiety and depressed mood: Status: Acute (6) Aspiration pneumonia: Status: Acute (7) Transaminitis: Status: Acute DS: Summary Hospital Course Hospital Course: Admission note HPI This is an 84-year-old female who returns to the emergency department for follow-up of abnormal labs. She was seen in the ED on April 02 after active mentally taking 25 mg of Coumadin instead of 2.5. her INR at that time was within normal limits. She was asked to return for INR recheck today. Today her INR was 14.9. She had no evidence of bleeding. She did have complaints of headache. Brain CT done showed no evidence of intracranial bleed. The remainder of her labs were at her baseline. Decision was made to admit her overnight for observation. Of note patient had recent admission on March 10 for acute on chronic cholecystitis. Cholecystostomy tube was placed by IR guidance on March 11. She had an uncomplicated hospital course was discharged home with visiting nurses on March 13. She was discharged with a course of Augmentin. She had been feeling well until SundayMarch 19. She returned to the ED with decreased appetite, decreased p.o. intake and generalized pruritus. Lab work was significant for acute kidney injury with a serum creatinine of 2.65, hypokalemia and lactic acidosis. Her LFTs were noted to be significantly elevated in obstructive pattern. She underwent a CAT scan of the abdomen which showed dilated and inflammatory changes and thickening around the gallbladder causing likely partial CBD obstruction. An ERCP was attempted but unable to be completed due to difficult anatomy. She underwent an MRCP which showed questionable stricture. She was transferred to [facility] where an ERCP was attempted but also unable to be completed. She underwent IR biliary drainage and was discharged home on March 31. Hospital stay The patient was admitted to the hospital for significantly elevated INR secondary to warfarin overdose. After admission she started to vomit blood and had bloody bowel motions with drop of hemoglobin to 4. She received vitamin K after having multiple discussions as she kept changing her mind during the whole hospital stay about her goals of care. Her in INR went down to 1.3. Received multiple transfusion total of 3 units with good response. EGD was done showing no ulcers or source of bleeding. Hemoglobin remained stable around 8. Restarted on warfarin pairs Gastroenterology. Her INR went up the 2nd day to 9. Hematology was consulted and recommended holding the warfarin for 1 week as an extra dose of vitamin K was given with fair response as INR dropped to 4 and the patient had no more bleeding. Hemoglobin remained stable around 8.5. After having the EGD the patient was noticed to have difficulty breathing and drop in her oxygen. A chest x-ray was done showing signs of aspiration pneumonia. She was started treatment with oral antibiotic after a prolonged discussion as the patient refused new IV lines after losing 2 of them. She agree to take oral antibiotics of doxycycline and Ceftin with good response as she was weaned off the oxygen during the hospital stay. White blood cells remain elevated at time of discharge but the patient overall condition improved significantly. She was evaluated by Physical therapy who recommended short-term rehab. Hold warfarin for 1 week then to restart at a lower dose of 1 mg guided by PCP To follow CBC and INR within 2 days To follow-up with GI as needed To continue treatment of doxycycline and Ceftin as prescribed Time Spent with Patient Time attestation: Total time spent providing and/or coordinating discharge services: Physical Exam Vital Signs: Vital Signs: Vital Signs Temp Pulse Resp BP Pulse Ox 04/13/20 14:19 92 04/13/20 11:34 97.6 F 85 16 120/64 93 04/13/20 08:24 76 110/59 L 04/13/20 07:57 97.6 F 76 16 110/59 L 97 04/13/20 03:53 98.4 F 88 18 138/63 95 04/12/20 23:52 98.8 F 88 20 142/60 H 91 L 04/12/20 19:52 97.5 F 66 18 120/79 94 04/12/20 15:21 97.5 F 92 20 130/64 93 Body Mass Index 34.2 Constitutional : Alert, oriented, not in distress Neck : Normal inspection, Supple Cardiovascular : RRR, S1 S2, no lower extremity edema Respiratory : Good bilateral air entry, no crackles, wheezes or rhonchi Gastrointestinal: soft, lax, Normal bowel sounds, Non tender Skin : Warm/Dry, No rash Neurological : Alert & oriented x3, No focal deficit DS: Data Data Completed and Pending Labs on day of discharge: Labs from last 24 hours 04/13/20 04/13/20 04/09/20 05:35 05:35 15:55 WBC 18.4 H RBC 3.07 L Hgb 8.9 L Hct 27.8 L MCV 90.6 MCH 29.0 MCHC 32.0 RDW 18.3 H Plt Count 424 H MPV 10.2 Immature Gran % (Auto) Cancelled Neut % (Auto) Cancelled Lymph % (Auto) Cancelled [place] % (Auto) Cancelled Eos % (Auto) Cancelled Baso % (Auto) Cancelled Lymph # (Auto) Cancelled [place] # (Auto) Cancelled Eos # (Auto) Cancelled Baso # (Auto) Cancelled Abs Immat Gran (auto) Cancelled Absolute Neuts (auto) Cancelled Absolute Nucleated RBC 0.060 H Nucleated RBC % (auto) 0.3 H Neutrophils % (Manual) 86 H Band Neutrophils % 2 L Lymphocytes % (Manual) 4 L Monocytes % (Manual) 4 Eosinophils % (Manual) 2 Basophils % (Manual) 1 Metamyelocytes % 1 Abs Neuts (Manual) 16.2 H Lymphocytes # (Manual) 0.7 Monocytes # (Manual) 0.7 Eosinophils # (Manual) 0.4 Basophils # (Manual) 0.2 Metamyelocytes # 0.2 Nucleated RBCs 1 H Platelet Estimate INCREASED Plt Morphology Comment NORMAL RBC Morphology NOTED Polychromasia 2+ Ovalocytes 1+ Acanthocytes (Spur) 3+ Smear Path Review Pending PT 57.7 H INR 4.8 H Crossmatch See Detail Discharge Plan Discharge Patient Disposition: Xfer SNF Referrals: Po,Lex Whyte MD [Primary Care Provider] - 1 Week (Please call and schedule a follow up appointment.) Discharge Medications: New cefuroxime axetil 500 mg Tablet 500 mg PO Q12H Qty: 12 RF: 0 doxycycline hyclate 100 mg Tablet 100 mg PO Q12H Qty: 12 RF: 0 Continued furosemide 40 mg tablet 1 tab PO DAILY RF: 0 atorvastatin 40 mg tablet 1 tab PO BEDTIME RF: 0 metoprolol succinate 100 mg tablet extended release 24 hr 1 tab PO DAILY RF: 0 calcipotriene 0.005 % ointment topical RF: 0 Discontinued warfarin 2.5 mg tablet PO RF: 0 Discharge Orders: Discharge Order (Routine); Ordered 04/13/20 Ordered By: Elie Gastelum Diet: advance to your usual diet Activity on Discharge: As tolerated Patient Instructions: Pneumonia (DC) Other Ambulatory Orders: Complete Blood Count no Diff (Routine) Timeframe: 20200416 Facility: [facility] - Location: [address]-Lab Ordered By: Elie Gastelum Prothrombin Time INR (Routine) Timeframe: 20200416 Facility: [facility] - Location: [address]-Lab Ordered By: Elie Gastelum Visit Report Forms: Patient Portal Discharge page Care Plan Goals: - Health Concerns: - Plan of Treatment: you were admitted to the hospital for accidentally taking too much warfarin resulting in upper GI bleeding. You were evaluated by Gastroenterology and your warfarin overdose was corrected with vitamin K. He received blood transfusion with fair response as your hemoglobin remained stable around 8. An EGD was done showing no ulcers or bleeding source. You were evaluated by Hematology who recommended holding warfarin for 1 more week at least than start with 1 mg daily. You were noticed to have difficulty breathing and started require oxygen. Chest x-ray showed signs of aspiration pneumonia. You refused IV antibiotics. You were treated with oral antibiotics with fair response. To continue doxycycline and Ceftin for 6 more days. Evaluated by Physical therapy who recommended short-term rehab.
[2020-04-13] MEDS: Acetaminophen 325 MG TABLET 650 MG PO (22:06)
[2020-04-13] MEDS: Atorvastatin Calcium 40 MG TABLET PO (22:06)
[2020-04-14 03:09] VITALS: BP 126/61; PULSE 80; RESP 19; TEMP 36.2; O2SAT 95
[2020-04-14 08:00] VITALS: BP 133/63; PULSE 80; RESP 16; TEMP 36.6; O2SAT 96
[2020-04-14 08:24] VITALS: BP 133/63; PULSE 80
[2020-04-14] MEDS: Acetaminophen 325 MG TABLET 650 MG PO (08:24)
[2020-04-14] MEDS: Metoprolol Succinate ER 100 MG TAB.ER.24H PO (08:24)
[2020-04-14] MEDS: 0.9 % Sodium Chloride Flush 3 ML SYRINGE 2 ML IVFLUSH (08:24)
--- NOTE | 2020-04-14 09:24 | MHC.CM.PN ---
Patient has been medically cleared for dc to SNF today. Patient has been accepted at [facility] and she will dc there today at 11:30 AM, via [facility]. IMM addressed with Patient, Son/Mani, and Patient's . CM will follow further PRN.
[2020-04-14] MEDS: Morphine Sulfate Immed Release 15 MG TABLET 7.5 MG PO (12:45)
== END 2020-04-14 12:52 | disposition skilled nursing facility (03) | DRG 917 ==
LOC: HO.ED 13:40 → HO.S3 16:41 → HO.IMC 17:18
PROVIDERS: Internal Medicine Gastroenterology; Student in an Organized Health Care Education/Training Program; Admitting Provider Physician Assistant Medical; Emergency Provider Emergency Medicine; PCP Internal Medicine; Visit Provider Internal Medicine
PROC: 0DJ08ZZ Inspection of Upper Intestinal Tract, Via Natural or Artificial Opening Endoscopic (ICD-10-PCS; CPT 43235; principal; 2020-04-08 14:30)
DX: T45.511A Poisoning by anticoagulants, accidental (unintentional), initial encounter (principal); A41.9 Sepsis, unspecified organism; J69.0 Pneumonitis due to inhalation of food and vomit; K92.1 Melena; D68.32 Hemorrhagic disorder due to extrinsic circulating anticoagulants; D62 Acute posthemorrhagic anemia; I50.32 Chronic diastolic (congestive) heart failure; F43.23 Adjustment disorder with mixed anxiety and depressed mood; E87.5 Hyperkalemia; E03.9 Hypothyroidism, unspecified; I48.91 Unspecified atrial fibrillation; Y92.009 Unspecified place in unspecified non-institutional (private) residence as the place of occurrence of the external cause; K29.70 Gastritis, unspecified, without bleeding; E78.00 Pure hypercholesterolemia, unspecified; I11.0 Hypertensive heart disease with heart failure; K20.90 Esophagitis, unspecified without bleeding; Z20.828 Contact with and (suspected) exposure to other viral communicable diseases; Z88.5 Allergy status to narcotic agent; Z79.890 Hormone replacement therapy; Z79.899 Other long term (current) drug therapy; Z66 Do not resuscitate
CPT/HCPCS: 36410; 36415; 36573; 70450; 71045; 74176; 74177; 76942; 80048; 80053; 80076; 81001; 81003; 82272; 83605; 83690; 83735; 85007; 85014; 85018; 85025; 85027; 85060; 85610; 85730; 86850; 86900; 86901; 86920; 86923; 86927; 87040; 87086; 87635; 93005; 96374; 97110; 97162; 97530; 99222; 99284; 99285; J1170; J2270; J2405; J2765; J2997; J3430; P9016; P9017; P9037

== ENCOUNTER 2020-04-16 10:42 | Inpatient (IN) | payer MEDICARE, SELFPAY ==
[2020-04-16] VITALS (8 sets, daily range): BP systolic 103–136; BP diastolic 42–90; PULSE 78–100; RESP 15–22; TEMP 36.1–36.9; O2SAT 94–100; BMI 30.4
--- NOTE | 2020-04-16 11:32 | ECG_ITS ---
Test Reason : GI BLEED Blood Pressure : / mmHG Vent. Rate : 105 BPM Atrial Rate : 357 BPM P-R Int : 000 ms QRS Dur : 080 ms QT Int : 358 ms P-R-T Axes : 000 -04 -12 degrees QTc Int : 473 ms Atrial fibrillation with rapid ventricular response Nonspecific ST and T wave abnormality Abnormal ECG When compared with ECG of 10-MAR-2020 14:59, No significant change was found Referred By: Ellen Cassidy Electronically Signed By:JULIAN OLIVEROS MD
--- NOTE | 2020-04-16 11:33 | XR_ITS ---
EXAMINATION: XR CHEST CLINICAL INFORMATION: Shortness of breath. COMPARISON: 04/11/2020 chest radiograph. TECHNIQUE: Frontal view of the chest was obtained. FINDINGS: No significant abnormality is noted involving the heart, lungs, mediastinum, bony thorax or soft tissues. IMPRESSION: No acute cardiopulmonary process.
--- NOTE | 2020-04-16 11:50 | PC.NURSE ---
pt very anxious, she states she does not want IV or lab work.
--- NOTE | 2020-04-16 11:59 | ED_ITS ---
HPI - GI Bleed General Chief complaint: GI Bleed <Ellen Cassidy NP - Last Filed: 04/16/20 17:09> Stated complaint: gi bleed <Ellen Cassidy NP - Last Filed: 04/16/20 17:09> Time Seen by Provider: 04/16/20 11:19 <Ellen Cassidy NP - Last Filed: 04/16/20 17:09> Source: EMS <Ellen Cassidy NP - Last Filed: 04/16/20 17:09> Mode of arrival: EMS <Ellen Cassidy NP - Last Filed: 04/16/20 17:09> Limitations: no limitations <Ellen Cassidy NP - Last Filed: 04/16/20 17:09> History of Present Illness HPI Narrative: 84-year-old female coming from a [facility] with a past medical history of AFib on Coumadin, hypertension, arthritis, hypothyroidism, history of NSTEMI status post cardiac catheterization, history of breast cancer status post lumpectomy and radiation, history of stomach cancer status post resection, history of uterine cancer status post hysterectomy, recent admit for cholecystitis with cholecystostomy tube placed (discharged 03/21/20 from [facility] [place]), recent admit [facility] for aspiration PNA/elevated INR (currenlty on cefuroxime and doxycyline)with complaints of rectal bleeding. Per staff the patient was noted to have 1 episode of rectal bleeding last night and a 2nd episode this morning. She also had an episode of epistaxis this morning which lasted about 30 minutes and resolved on its own. Of note her INR on 04/15 was great were then a and she was given 2.5 mg of vitamin K and her Coumadin was held. The patient is complaining of some lower abdominal cramping. She tells me she has had this for days to weeks though. The patient tells me she has nausea which is chronic. No vomiting. No fevers. <Ellen Cassidy NP - Last Filed: 04/16/20 17:09> MD complaint: gross hematochezia <MAREN Davies Last Filed: 04/16/20 17:09> Onset (ago): hour(s) <MAREN Davies Last Filed: 04/16/20 17:09> Pain Consistency: intermittent <Ellen Cassidy NP - Last Filed: 04/16/20 17:09> Severity: mild <Ellen Cassidy NP - Last Filed: 04/16/20 17:09> Associated symptoms: abdominal pain, nausea and epistaxis <MAREN Davies Last Filed: 04/16/20 17:09> Treatments Prior to Arrival: none <Ellen Cassidy NP - Last Filed: 04/16/20 17:09> Related Data Home medications: Home Medications Medication Instructions Recorded Confirmed atorvastatin 1 tab PO BEDTIME 04/04/20 04/16/20 calcipotriene 1 applic TOPICAL BID 04/04/20 04/16/20 furosemide 1 tab PO DAILY 04/04/20 04/16/20 metoprolol succinate 1 tab PO DAILY 04/04/20 04/16/20 levothyroxine 88 mcg PO QAM 04/16/2020 Previous Rx's Medication Instructions Recorded cefuroxime axetil 500 mg PO Q12H #12 tab 04/12/20 doxycycline hyclate 100 mg PO Q12H #12 tab 04/12/20 alprazolam [Xanax] 0.25 mg PO TID PRN #10 tab 04/14/20 morphine 7.5 mg PO Q6H PRN #10 tab 04/14/20 <Ellen Cassidy NP - Last Filed: 04/16/20 17:09> Allergies/Adverse reactions: Allergies Allergy/AdvReac Type Severity Reaction Status Date / Time amlodipine Allergy Unknown Unknown Verified 04/19/20 11:24 lisinopril Allergy Unknown Unknown Verified 04/19/20 11:24 acetaminophen AdvReac Unknown VOMITING Verified 04/19/20 11:24 [From Tylenol-Codeine] <MAREN Davies Last Filed: 04/16/20 17:09> Review of Systems Review of Systems: Yes all other systems are reviewed and are negative <MAREN Davies Last Filed: 04/16/20 17:09> Constitutional: Constitutional: Reports no additional constitutional complaints, Denies body ache(s), Denies chills, Denies fever(s), Denies headache(s) and Denies weakness <Ellen Cassidy NP - Last Filed: 04/16/20 17:09> Eyes: Eyes: Reports no additional eye complaints and Denies change in vision <Ellen Cassidy MIDDLE CARD TENDER - Last Filed: 04/16/20 17:09> ENT: Reports system reviewed and no additional complaints, except as documented, Denies dizziness, Denies headache(s), Reports epistaxis, Denies nasal congestion, Denies nasal discharge and Denies neck pain <Ellen Cassidy MIDDLE CARD TENDER - Last Filed: 04/16/20 17:09> Cardiovascular: Cardiovascular: Reports no additional cardiovascular complaints, Denies chest pain, Denies leg edema and Denies dyspnea <Ellen Cassidy MIDDLE CARD TENDER - Last Filed: 04/16/20 17:09> Respiratory: Respiratory: Reports no additional respiratory complaints, Denies cough and Denies dyspnea <Ellen Cassidy MIDDLE CARD TENDER - Last Filed: 04/16/20 17:09> Gastrointestinal: Gastrointestinal: Reports no additional gastrointestinal complaints, Reports abdominal pain, Reports hematochezia, Denies diarrhea, Reports nausea and Denies vomiting <Ellen Cassidy MIDDLE CARD TENDER - Last Filed: 04/16/20 17:09> Genitourinary: Genitourinary: Reports no additional female genitourinary complaints and Denies urinary incontinence <Ellen Cassidy MIDDLE CARD TENDER - Last Filed: 04/16/20 17:09> Musculoskeletal: Musculoskeletal: Reports no additional musculoskeletal complaints, Denies back pain, Denies arthralgias, Denies joint swelling, Denies neck pain, Denies numbness and Denies tingling <Ellen Cassidy MIDDLE CARD TENDER - Last Filed: 04/16/20 17:09> Integumentary/Breasts: Skin/Breast: Reports system reviewed and no additional complaints, except as docu and Denies rash <Ellen Cassidy MIDDLE CARD TENDER - Last Filed: 04/16/20 17:09> Neurologic: Reports system reviewed and no additional complaints, except as documented, Denies Abnormal speech present, Denies dizziness, Denies hea dache(s), Denies numbness, Denies tingling and Denies weakness <Ellen Cassidy NP - Last Filed: 04/16/20 17:09> [facility] Past Medical History Attestation statement: The following information was validated with the patient. <Ellen Cassidy NP - Last Filed: 04/16/20 17:09> Source: old records reviewed, obtained from family and nursing notes reviewed <Ellen Cassidy NP - Last Filed: 04/16/20 17:09> Medical History: Medical History (Updated 04/20/20 @ 08:00 by Lex Velazco MD) Acute blood loss anemia Adjustment disorder with mixed anxiety and depressed mood Anemia Aspiration pneumonia Atrial fibrillation Biliary stricture Breast cancer Cholecystostomy tube dysfunction Diastolic CHF GI bleed High cholesterol History of breast cancer History of gastric cancer HTN (hypertension) Hypothyroid NSTEMI (non-ST elevated myocardial infarction) Psoriasis Restless leg syndrome Transaminitis Uterine cancer <Ellen Cassidy NP - Last Filed: 04/16/20 17:09> Surgical History: Surgical History (Updated 04/19/20 @ 12:38 by Richie Walker MD) History of cardiac catheterization History of partial gastrectomy History of toe surgery S/P breast lumpectomy S/P [id number] (total abdominal hysterectomy and bilateral salpingo-oophorectomy) <Ellen Cassidy NP - Last Filed: 04/16/20 17:09> Family History Family History: Family History (Updated 04/19/20 @ 11:30 by Dea Leyva [facility]) Father Hypertension Cancer Mother Hypertension Sister Cancer <Ellen Cassidy NP - Last Filed: 04/16/20 17:09> Social History Social History: Social History Household Members: Spouse Housing: Assisted Living Facility Alcohol intake: never Smoking Status: Former smoker Smoked in Last 30 Days: No Second Hand Smoke Exposure: No Use of substances other than those prescribed or required for medical reasons: No Currently Displaying Signs/Symptoms of Drug Intoxication Withdrawal: No Have you been hit, kicked, punched, or otherwise hurt by someone within the past year? If so, by whom?: No Do you feel safe in your current relationship?: Yes Is there a partner from a previous relationship who is making you feel unsafe now?: No Are you made to feel afraid or neglected: No Advance Directives: No Advance Directives Information Provided: Yes Do you have thoughts of harming others: None Do you have a plan to hurt others: No Plan Recently lost weight without trying: No service: No Current occupational status: retired <Ellen Cassidy NP - Last Filed: 04/16/20 17:09> Physical Exam Vital Signs: Vital Signs: Vital Signs Temp Pulse Resp BP Pulse Ox 04/16/20 16:30 16 04/16/20 14:25 78 20 125/54 L 98 04/16/20 12:37 97.7 F 100 22 H 125/54 L 99 04/16/20 11:03 98.5 F 90 15 103/42 L 98 Body Mass Index 30.4 <Ellen Cassidy NP - Last Filed: 04/16/20 17:09> Vital Signs: Vital Signs Temp Pulse Resp BP Pulse Ox 04/16/20 16:30 16 04/16/20 14:25 78 20 125/54 L 98 04/16/20 12:37 97.7 F 100 22 H 125/54 L 99 04/16/20 11:03 98.5 F 90 15 103/42 L 98 Body Mass Index 30.4 <MATHEUS Lehman - Last Filed: 04/16/20 18:23> Vital Signs: Vital Signs Temp Pulse Resp BP Pulse Ox 04/16/20 16:30 16 04/16/20 14:25 78 20 125/54 L 98 04/16/20 12:37 97.7 F 100 22 H 125/54 L 99 04/16/20 11:03 98.5 F 90 15 103/42 L 98 Body Mass Index 30.4 <Terrence Starks MD - Last Filed: 04/20/20 14:51> Const: General: cooperative, healthy appearing, comfortable and no acute distress <Ellen Cassidy NP - Last Filed: 04/16/20 17:09> Orientation/consciousness: patient oriented x3 <Ellen Cassidy NP - Last Filed: 04/16/20 17:09> Limitations: no limitations <Ellen Cassidy NP - Last Filed: 04/16/20 17:09> HENMT: Head: Yes normal to inspection <Ellen Cassidy NP - Last Filed: 04/16/20 17:09> Ears: hearing grossly normal bilaterally <Ellen Cassidy NP - Last Filed: 04/16/20 17:09> General nose exam: Normal external nose present <Ellen Cassidy NP - Last Filed: 04/16/20 17:09> Face and sinus: Yes normal facial exam <Ellen Cassidy NP - Last Filed: 04/16/20 17:09> Mouth: Normal oral and palatal mucosa present <Ellen Cassidy NP - Last Filed: 04/16/20 17:09> Throat: Yes posterior oropharynx normal <Ellen Cassidy NP - Last Filed: 04/16/20 17:09> Eyes: General: appearance normal, both eyes and all related structures <Ellen Cassidy NP - Last Filed: 04/16/20 17:09> Pupils: Equal, round and reactive pupils present <Ellen Cassidy NP - Last Filed: 04/16/20 17:09> Neck: Neck: Yes normal visual inspection <Ellen Cassidy NP - Last Filed: 04/16/20 17:09> Chest: Chest palpation & inspection: normal inspection of the chest <Ellen Cassidy NP - Last Filed: 04/16/20 17:09> Resp: Other: Speaking short phrases, anxious diminished breath sounds bilaterally <Ellen Cassidy NP - Last Filed: 04/16/20 17:09> Effort & Inspection: normal respiratory effort <Ellen Cassidy NP - Last Filed: 04/16/20 17:09> Auscultation: clear to auscultation bilaterally <Ellen Cassidy NP - Last Filed: 04/16/20 17:09> Cardio: Rate: regular rate <Ellen Cassidy NP - Last Filed: 04/16/20 17:09> Rhythm: regular rhythm <Ellen Cassidy NP - Last Filed: 04/16/20 17:09> Peripheral pulses: Peripheral pulses 2+ throughout <Ellen Cassidy MIDDLE CARD TENDER - Last Filed: 04/16/20 17:09> GI: Other: Mild diffuse tenderness. No focal tenderness. Maroon stool on rectal exam <Ellen Cassidy MIDDLE CARD TENDER - Last Filed: 04/16/20 17:09> Inspection: Yes normal to inspection <Ellen aCssidy MIDDLE CARD TENDER - Last Filed: 04/16/20 17:09> Palpation (GI): Soft to palpation and nontender <Ellen Cassidy MIDDLE CARD TENDER - Last Filed: 04/16/20 17:09> Auscultation: normal bowel sounds <Ellen Cassidy MIDDLE CARD TENDER - Last Filed: 04/16/20 17:09> Back/Spine/Pelvis: Thoracic/Lumbar Spine: thoracic and lumbar spine normal to inspection <Ellen Cassidy MIDDLE CARD TENDER - Last Filed: 04/16/20 17:09> Skin: General skin exam: no rashes or lesions noted <Ellen Cassidy MIDDLE CARD TENDER - Last Filed: 04/16/20 17:09> Neuro: General: patient oriented x3, no focal motor deficits and normal sensation to monofilament <Ellen Cassidy MIDDLE CARD TENDER - Last Filed: 04/16/20 17:09> Cranial nerves: Yes Equal, round and reactive pupils present <Ellen Cassidy MIDDLE CARD TENDER - Last Filed: 04/16/20 17:09> Cognition (Neuro): normal cognition <Ellen Cassidy MIDDLE CARD TENDER - Last Filed: 04/16/20 17:09> Speech: No Abnormal speech present <Ellen Cassidy MIDDLE CARD TENDER - Last Filed: 04/16/20 17:09> Gait exam (Neuro): Normal gait present <Ellen Cassidy MIDDLE CARD TENDER - Last Filed: 04/16/20 17:09> Motor exam (neuro): 5/5 motor strength present throughout <Ellen Cassidy MIDDLE CARD TENDER - Last Filed: 04/16/20 17:09> Extrem: General: Yes normal to inspection <Ellen Cassidy MIDDLE CARD TENDER - Last Filed: 04/16/20 17:09> Course Course Course Narrative: 84-year-old female here with rectal bleeding since last evening an episode of epistaxis this morning which has resolved and the setting of elevated INR. The patient did receive a dose of vitamin K yesterday and her Coumadin was held. Exam she has some mild diffuse abdominal tenderness and has maroon stool on rectal exam. She will need labs including type and screen. The patient also has some mild shortness of breath and is currently on antibiotics for aspiration pneumonia. Will check chest x-ray today. Will also check EKG and troponin. Patient is DNR/ DNI / do not hospitalize. She is agreeable to checking labs and workup here in the ER. 1410- Labs show elevated LFTS unchanged from baseline, GERMAINE unchanged from baseline. INR today 1.8. Discussed with GI doctor Dr Paredes. Will plan for GI bleed CT. Likely will need admission for observation. Patient is agreeable to this. Updated family. Leukocytosis slightly increased from baseline. Lactic acid negative. Blood cultures sent. No clear source of infection at this time. May be stress/inflammatory related. 1640-Pt pending Ct A/P. Discussed with Shelley JARVIS and she accepted admission pending study. 1700-Sign out to Nelly JARVIS pending CT A/P. <Ellen Cassidy NP - Last Filed: 04/16/20 17:09> Reevaluation(s) Reevaluation #1: I have reviewed the chart <Terrence Starks MD - Last Filed: 04/20/20 14:51> MDM - GI Bleed MDM Narrative Medical decision making narrative: Consider GI bleed, ischemic colitis, hemorrhoids, elevated INR, anemia, pneumonia, ACS, CHF <Ellen Cassidy NP - Last Filed: 04/16/20 17:09> Medical Records Attestation: I reviewed the patient's medical records. <Ellen Cassidy NP - Last Filed: 04/16/20 17:09> Lab Data Attestation: I reviewed the patient's lab results. <Ellen Cassidy NP - Last Filed: 04/16/20 17:09> Result diagrams: : 04/19/20 05:36 04/19/20 05:36 <Ellen Cassidy NP - Last Filed: 04/16/20 17:09> Labs: Lab Results 04/16/20 04/16/20 04/16/20 Range/Units 12:06 12:06 12:06 WBC 23.2 H (4.8-10.8) X10*3/uL RBC 3.34 L (4.20-5.50) X10*6/uL Hgb 9.5 L (12.0-16.0) g/dl Hct 29.9 L (37-47) % MCV 89.5 (80-98) fL MCH 28.4 (27.0-33.0) pg MCHC 31.8 (31.0-35.0) g/dl RDW 18.7 H (11.0-16.0) % Plt Count 409 H (160-400) X10*3/uL MPV 9.4 (9.4-12.3) fL Immature Gran % (Auto) 3.3 H (0.0-0.4) % Neut % (Auto) 83.4 H (45-73) % Lymph % (Auto) 7.1 L (20-40) % Jay % (Auto) 5.3 (2-11) % Eos % (Auto) 0.6 (0-4) % Baso % (Auto) 0.3 (0-2) % Lymph # (Auto) 1.7 (1.2-4.9) X10*3/uL Jay # (Auto) 1.2 (0.1-1.2) X10*3/uL Eos # (Auto) 0.1 (0.0-0.4) X10*3/uL Baso # (Auto) 0.1 (0.0-0.2) X10*3/uL Abs Immat Gran (auto) 0.77 H (0.00-0.03) X10*3/uL Absolute Neuts (auto) 19.3 H (2.0-8.3) X10*3/uL Absolute Nucleated RBC 0.020 H (0.0-0.012) X10*3/uL Nucleated RBC % (auto) 0.1 (0.0-0.2) /100WBC PT 22.3 H D (10.8-13.0) SEC INR 1.9 H (0.9-1.1) Sodium (135-145) mmol/L Potassium (3.3-5.1) mmol/l Chloride (96-108) mmol/L Carbon Dioxide (22-29) mmol/L Anion Gap (12-20) BUN (9-16) mg/dL Creatinine (0.5-1.4) mg/dL Estim Creat Clear Calc Estimated GFR Random Glucose (60-115) mg/dL Lactic Acid (0.5-2.0) mmol/L Calcium (8.4-10.2) mg/dL Magnesium (1.6-2.6) mg/dL Total Bilirubin (0.0-1.0) mg/dL Direct Bilirubin (0.0-0.5) mg/dL AST (5-31) U/L ALT (0-31) U/L Alkaline Phosphatase (39-117) U/L Total Protein (6.5-8.0) g/dL Albumin (3.5-5.0) g/dL Stool Occult Blood POS (NEG) Blood Type Antibody Screen 04/16/20 04/16/20 04/16/20 Range/Units 12:06 12:47 12:57 WBC (4.8-10.8) X10*3/uL RBC (4.20-5.50) X10*6/uL Hgb (12.0-16.0) g/dl Hct (37-47) % MCV (80-98) fL MCH (27.0-33.0) pg MCHC (31.0-35.0) g/dl RDW (11.0-16.0) % Plt Count (160-400) X10*3/uL MPV (9.4-12.3) fL Immature Gran % (Auto) (0.0-0.4) % Neut % (Auto) (45-73) % Lymph % (Auto) (20-40) % Jay % (Auto) (2-11) % Eos % (Auto) (0-4) % Baso % (Auto) (0-2) % Lymph # (Auto) (1.2-4.9) X10*3/uL Jay # (Auto) (0.1-1.2) X10*3/uL Eos # (Auto) (0.0-0.4) X10*3/uL Baso # (Auto) (0.0-0.2) X10*3/uL Abs Immat Gran (auto) (0.00-0.03) X10*3/uL Absolute Neuts (auto) (2.0-8.3) X10*3/uL Absolute Nucleated RBC (0.0-0.012) X10*3/uL Nucleated RBC % (auto) (0.0-0.2) /100WBC PT (10.8-13.0) SEC INR (0.9-1.1) Sodium 129 L (135-145) mmol/L Potassium 4.5 (3.3-5.1) mmol/l Chloride 95 L (96-108) mmol/L Carbon Dioxide 22 (22-29) mmol/L Anion Gap 17 (12-20) BUN 26 H (9-16) mg/dL Creatinine 1.06 (0.5-1.4) mg/dL Estim Creat Clear Calc 46.6 Estimated GFR 49 Random Glucose 89 (60-115) mg/dL Lactic Acid 1.5 (0.5-2.0) mmol/L Calcium 8.2 L (8.4-10.2) mg/dL Magnesium 2.1 (1.6-2.6) mg/dL Total Bilirubin 3.7 H (0.0-1.0) mg/dL Direct Bilirubin 2.8 H (0.0-0.5) mg/dL AST 77 H (5-31) U/L ALT 34 H (0-31) U/L Alkaline Phosphatase 537 H D (39-117) U/L Total Protein 6.4 L (6.5-8.0) g/dL Albumin 2.9 L (3.5-5.0) g/dL Stool Occult Blood (NEG) Blood Type A Positive Antibody Screen NEGATIVE <Ellen Cassidy NP - Last Filed: 04/16/20 17:09> Lab Results 04/16/20 04/16/20 04/16/20 Range/Units 12:06 12:06 12:06 WBC 23.2 H (4.8-10.8) X10*3/uL RBC 3.34 L (4.20-5.50) X10*6/uL Hgb 9.5 L (12.0-16.0) g/dl Hct 29.9 L (37-47) % MCV 89.5 (80-98) fL MCH 28.4 (27.0-33.0) pg MCHC 31.8 (31.0-35.0) g/dl RDW 18.7 H (11.0-16.0) % Plt Count 409 H (160-400) X10*3/uL MPV 9.4 (9.4-12.3) fL Immature Gran % (Auto) 3.3 H (0.0-0.4) % Neut % (Auto) 83.4 H (45-73) % Lymph % (Auto) 7.1 L (20-40) % Jay % (Auto) 5.3 (2-11) % Eos % (Auto) 0.6 (0-4) % Baso % (Auto) 0.3 (0-2) % Lymph # (Auto) 1.7 (1.2-4.9) X10*3/uL Jay # (Auto) 1.2 (0.1-1.2) X10*3/uL Eos # (Auto) 0.1 (0.0-0.4) X10*3/uL Baso # (Auto) 0.1 (0.0-0.2) X10*3/uL Abs Immat Gran (auto) 0.77 H (0.00-0.03) X10*3/uL Absolute Neuts (auto) 19.3 H (2.0-8.3) X10*3/uL Absolute Nucleated RBC 0.020 H (0.0-0.012) X10*3/uL Nucleated RBC % (auto) 0.1 (0.0-0.2) /100WBC PT 22.3 H D (10.8-13.0) SEC INR 1.9 H (0.9-1.1) Sodium (135-145) mmol/L Potassium (3.3-5.1) mmol/l Chloride (96-108) mmol/L Carbon Dioxide (22-29) mmol/L Anion Gap (12-20) BUN (9-16) mg/dL Creatinine (0.5-1.4) mg/dL Estim Creat Clear Calc Estimated GFR Random Glucose (60-115) mg/dL Lactic Acid (0.5-2.0) mmol/L Calcium (8.4-10.2) mg/dL Magnesium (1.6-2.6) mg/dL Total Bilirubin (0.0-1.0) mg/dL Direct Bilirubin (0.0-0.5) mg/dL AST (5-31) U/L ALT (0-31) U/L Alkaline Phosphatase (39-117) U/L Total Protein (6.5-8.0) g/dL Albumin (3.5-5.0) g/dL Stool Occult Blood POS (NEG) Blood Type Antibody Screen 04/16/20 04/16/20 04/16/20 Range/Units 12:06 12:47 12:57 WBC (4.8-10.8) X10*3/uL RBC (4.20-5.50) X10*6/uL Hgb (12.0-16.0) g/dl Hct (37-47) % MCV (80-98) fL MCH (27.0-33.0) pg MCHC (31.0-35.0) g/dl RDW (11.0-16.0) % Plt Count (160-400) X10*3/uL MPV (9.4-12.3) fL Immature Gran % (Auto) (0.0-0.4) % Neut % (Auto) (45-73) % Lymph % (Auto) (20-40) % Jay % (Auto) (2-11) % Eos % (Auto) (0-4) % Baso % (Auto) (0-2) % Lymph # (Auto) (1.2-4.9) X10*3/uL Jay # (Auto) (0.1-1.2) X10*3/uL Eos # (Auto) (0.0-0.4) X10*3/uL Baso # (Auto) (0.0-0.2) X10*3/uL Abs Immat Gran (auto) (0.00-0.03) X10*3/uL Absolute Neuts (auto) (2.0-8.3) X10*3/uL Absolute Nucleated RBC (0.0-0.012) X10*3/uL Nucleated RBC % (auto) (0.0-0.2) /100WBC PT (10.8-13.0) SEC INR (0.9-1.1) Sodium 129 L (135-145) mmol/L Potassium 4.5 (3.3-5.1) mmol/l Chloride 95 L (96-108) mmol/L Carbon Dioxide 22 (22-29) mmol/L Anion Gap 17 (12-20) BUN 26 H (9-16) mg/dL Creatinine 1.06 (0.5-1.4) mg/dL Estim Creat Clear Calc 46.6 Estimated GFR 49 Random Glucose 89 (60-115) mg/dL Lactic Acid 1.5 (0.5-2.0) mmol/L Calcium 8.2 L (8.4-10.2) mg/dL Magnesium 2.1 (1.6-2.6) mg/dL Total Bilirubin 3.7 H (0.0-1.0) mg/dL Direct Bilirubin 2.8 H (0.0-0.5) mg/dL AST 77 H (5-31) U/L ALT 34 H (0-31) U/L Alkaline Phosphatase 537 H D (39-117) U/L Total Protein 6.4 L (6.5-8.0) g/dL Albumin 2.9 L (3.5-5.0) g/dL Stool Occult Blood (NEG) Blood Type A Positive Antibody Screen NEGATIVE <MATHEUS Lehman - Last Filed: 04/16/20 18:23> Lab Results 04/16/20 04/16/20 04/16/20 Range/Units 12:06 12:06 12:06 WBC 23.2 H (4.8-10.8) X10*3/uL RBC 3.34 L (4.20-5.50) X10*6/uL Hgb 9.5 L (12.0-16.0) g/dl Hct 29.9 L (37-47) % MCV 89.5 (80-98) fL MCH 28.4 (27.0-33.0) pg MCHC 31.8 (31.0-35.0) g/dl RDW 18.7 H (11.0-16.0) % Plt Count 409 H (160-400) X10*3/uL MPV 9.4 (9.4-12.3) fL Immature Gran % (Auto) 3.3 H (0.0-0.4) % Neut % (Auto) 83.4 H (45-73) % Lymph % (Auto) 7.1 L (20-40) % Jay % (Auto) 5.3 (2-11) % Eos % (Auto) 0.6 (0-4) % Baso % (Auto) 0.3 (0-2) % Lymph # (Auto) 1.7 (1.2-4.9) X10*3/uL Jay # (Auto) 1.2 (0.1-1.2) X10*3/uL Eos # (Auto) 0.1 (0.0-0.4) X10*3/uL Baso # (Auto) 0.1 (0.0-0.2) X10*3/uL Abs Immat Gran (auto) 0.77 H (0.00-0.03) X10*3/uL Absolute Neuts (auto) 19.3 H (2.0-8.3) X10*3/uL Absolute Nucleated RBC 0.020 H (0.0-0.012) X10*3/uL Nucleated RBC % (auto) 0.1 (0.0-0.2) /100WBC PT 22.3 H D (10.8-13.0) SEC INR 1.9 H (0.9-1.1) Sodium (135-145) mmol/L Potassium (3.3-5.1) mmol/l Chloride (96-108) mmol/L Carbon Dioxide (22-29) mmol/L Anion Gap (12-20) BUN (9-16) mg/dL Creatinine (0.5-1.4) mg/dL Estim Creat Clear Calc Estimated GFR Random Glucose (60-115) mg/dL Lactic Acid (0.5-2.0) mmol/L Calcium (8.4-10.2) mg/dL Magnesium (1.6-2.6) mg/dL Total Bilirubin (0.0-1.0) mg/dL Direct Bilirubin (0.0-0.5) mg/dL AST (5-31) U/L ALT (0-31) U/L Alkaline Phosphatase (39-117) U/L Total Protein (6.5-8.0) g/dL Albumin (3.5-5.0) g/dL Stool Occult Blood POS (NEG) Blood Type Antibody Screen 04/16/20 04/16/20 04/16/20 Range/Units 12:06 12:47 12:57 WBC (4.8-10.8) X10*3/uL RBC (4.20-5.50) X10*6/uL Hgb (12.0-16.0) g/dl Hct (37-47) % MCV (80-98) fL MCH (27.0-33.0) pg MCHC (31.0-35.0) g/dl RDW (11.0-16.0) % Plt Count (160-400) X10*3/uL MPV (9.4-12.3) fL Immature Gran % (Auto) (0.0-0.4) % Neut % (Auto) (45-73) % Lymph % (Auto) (20-40) % Jay % (Auto) (2-11) % Eos % (Auto) (0-4) % Baso % (Auto) (0-2) % Lymph # (Auto) (1.2-4.9) X10*3/uL Jay # (Auto) (0.1-1.2) X10*3/uL Eos # (Auto) (0.0-0.4) X10*3/uL Baso # (Auto) (0.0-0.2) X10*3/uL Abs Immat Gran (auto) (0.00-0.03) X10*3/uL Absolute Neuts (auto) (2.0-8.3) X10*3/uL Absolute Nucleated RBC (0.0-0.012) X10*3/uL Nucleated RBC % (auto) (0.0-0.2) /100WBC PT (10.8-13.0) SEC INR (0.9-1.1) Sodium 129 L (135-145) mmol/L Potassium 4.5 (3.3-5.1) mmol/l Chloride 95 L (96-108) mmol/L Carbon Dioxide 22 (22-29) mmol/L Anion Gap 17 (12-20) BUN 26 H (9-16) mg/dL Creatinine 1.06 (0.5-1.4) mg/dL Estim Creat Clear Calc 46.6 Estimated GFR 49 Random Glucose 89 (60-115) mg/dL Lactic Acid 1.5 (0.5-2.0) mmol/L Calcium 8.2 L (8.4-10.2) mg/dL Magnesium 2.1 (1.6-2.6) mg/dL Total Bilirubin 3.7 H (0.0-1.0) mg/dL Direct Bilirubin 2.8 H (0.0-0.5) mg/dL AST 77 H (5-31) U/L ALT 34 H (0-31) U/L Alkaline Phosphatase 537 H D (39-117) U/L Total Protein 6.4 L (6.5-8.0) g/dL Albumin 2.9 L (3.5-5.0) g/dL Stool Occult Blood (NEG) Blood Type A Positive Antibody Screen NEGATIVE <Terrence Starks MD - Last Filed: 04/20/20 14:51> ECG Data Attestation: I personally reviewed and interpreted this ECG as follows: <Ellen Cassidy NP - Last Filed: 04/16/20 17:09> ECG interpretation date: 04/16/20 <Ellen Cassidy NP - Last Filed: 04/16/20 17:09> ECG interpretation time: 11:43 <Ellen Cassidy NP - Last Filed: 04/16/20 17:09> Interpretation: AFib with a rate of 105. Nonspecific ST abnormalities. Normal QRS. <Ellen Cassidy NP - Last Filed: 04/16/20 17:09> Discharge Plan Discharge Clinical Impression: Gastrointestinal bleed, Abnormal transaminases, Leukocytosis, Anemia <Ellen Cassidy NP - Last Filed: 04/16/20 17:09> Patient Disposition: Admitted As Inpatient <Ellen Cassidy NP - Last Filed: 04/16/20 17:09> Discharge Date/Time: 04/16/20 22:06 <Ellen Cassidy NP - Last Filed: 04/16/20 17:09> Sign Out Sign Out Data: Patient Sign Out occurred on 04/16/20 at 17:21. After a detailed discussion of the patient's case, care was transferred from Ellen Cassidy NP to MATHEUS Lehman. Sign Out Comment: Pending Ct A/P results, additional intervention as needed, admission. Last updated by Ellen Cassidy NP at 04/16/20 17:14 <Ellen Cassidy NP - Last Filed: 04/16/20 17:09>
[2020-04-16 12:24] LABS: OBS Int Ctl Valid YES; OBS1 POS (NEG)
[2020-04-16 12:41] LABS: MANUAL DIFF FLAG NO
[2020-04-16 12:43] LABS: Basophils Absolute Auto 0.1 X10*3/uL (0.0-0.2); Basophils Percent Auto 0.3 % (0-2); Eosinophils Absolute Auto 0.1 X10*3/uL (0.0-0.4); Eosinophils Percent Auto 0.6 % (0-4); Hematocrit 29.9 % (37-47); Hemoglobin 9.5 g/dl (12.0-16.0); Imm Gran Abs Auto 0.77 X10*3/uL (0.00-0.03); Imm Gran Pct Auto 3.3 % (0.0-0.4); Lymphocytes Absolute Auto 1.7 X10*3/uL (1.2-4.9); Lymphocytes Percent Auto 7.1 % (20-40); Mean Corpuscular HGB Conc 31.8 g/dl (31.0-35.0); Mean Corpuscular Hemoglobin 28.4 pg (27.0-33.0); Mean Corpuscular Volume 89.5 fL (80-98); Mean Platelet Volume 9.4 fL (9.4-12.3); Monocytes Absolute Auto 1.2 X10*3/uL (0.1-1.2); Monocytes Percent Auto 5.3 % (2-11); NRBC Pct Auto 0.1 /100WBC (0.0-0.2); Neutrophils Absolute Auto 19.3 X10*3/uL (2.0-8.3); Neutrophils Percent Auto 83.4 % (45-73); Platelet Count 409 X10*3/uL (160-400); Red Blood Count 3.34 X10*6/uL (4.20-5.50); Red Cell Distribution Width 18.7 % (11.0-16.0); White Blood Count 23.2 X10*3/uL (4.8-10.8)
[2020-04-16 12:47] LABS: INTERNATIONAL NORM RATIO 1.9 (0.9-1.1); Prothrombin Time 22.3 SEC (10.8-13.0)
--- NOTE | 2020-04-16 12:54 | PC.NURSE ---
pt agreed to lab work but refuses any further lab work. Lactic has not been collected. Pt is very anxious and agitated. She states she does not want anything done and only stays alive to please family. She states she does not want another IV stick.
[2020-04-16 13:21] LABS: Alanine Aminotransferase 34 U/L (0-31); Albumin Level 2.9 g/dL (3.5-5.0); Alkaline Phosphatase 537 U/L (39-117); Anion Gap 17 (12-20); Aspartate Amino Transferase 77 U/L (5-31); Bilirubin Direct 2.8 mg/dL (0.0-0.5); Bilirubin Total 3.7 mg/dL (0.0-1.0); Blood Urea Nitrogen 26 mg/dL (9-16); Calcium 8.2 mg/dL (8.4-10.2); Carbon Dioxide 22 mmol/L (22-29); Chloride 95 mmol/L (96-108); Creatinine Clr Calc Pharmacy 46.6; Estimated Glomerular Filt Rate 49; Glucose Random 89 mg/dL (60-115); Magnesium 2.1 mg/dL (1.6-2.6); Potassium 4.5 mmol/l (3.3-5.1); Sodium 129 mmol/L (135-145); Total Protein 6.4 g/dL (6.5-8.0)
[2020-04-16 13:25] LABS: Lactic Acid 1.5 mmol/L (0.5-2.0)
--- NOTE | 2020-04-16 13:52 | CT_ITS ---
EXAMINATION: CT ABDOMEN AND PELVIS WITH CONTRAST CLINICAL INFORMATION: GI bleeding. COMPARISON: CT scan abdomen and pelvis 03/21/2020. MR abdomen 03/22/2020. TECHNIQUE: Multidetector volumetric images were obtained from the superior aspect of the liver through the pubic symphysis following administration 85 mL of Omnipaque 350 intravenous contrast. Sagittal and coronal reformatted images were obtained on the technologist's workstation. Oral contrast: No This CT examination was performed using dose optimization techniques as appropriate, variously including the following: *Automated exposure control *Adjustment of mA and/or kV according to patient size (this includes techniques or standardized protocols for targeted exams where dose is matched to indication/reason for exam; i.e. extremities or head) *Use of iterative reconstruction technique DLP: 709 mGy-cm FINDINGS: LUNG BASES: Small region of dependent atelectasis at both lung bases. There are small dependent bilateral pleural effusions. LIVER, GALLBLADDER, AND BILIARY TREE: There are 2 catheters in the right upper quadrant. There is a percutaneous catheter extending from the anterior liver through the left lobe intrahepatic bile ducts to the common bile duct and into the duodenum. The other catheter is a percutaneous cholecystotomy catheter. This catheter is unchanged in position since CAT scan 03/21/2020. The severity of the intrahepatic bile duct dilatation is similar to prior study. There is pneumobilia. Heterogeneous density of the gallbladder similar to prior study. Mild gallbladder wall thickening and edema around the gallbladder similar prior CAT scan 03/21/2020. MESENTERY: There is now a small volume of abdominal ascites around the liver and spleen which is new since prior study. There is a small amount of fluid in the cul-de-sac and presacral space of the lower pelvis. There is no free air. PANCREAS: Unremarkable. SPLEEN: Unremarkable. ADRENAL GLANDS: Unremarkable. KIDNEYS AND URETERS: There is mild hydronephrosis of the right and left kidneys. There is distention of renal pelvis and calyces of both kidneys. This is new since prior CAT scan 03/21/2020. There is no dilatation of ureters. No renal or ureteral stone. BLADDER: Unremarkable. GASTROINTESTINAL TRACT: There are scattered diverticula of the colon. There is no diverticulitis. There is no bowel wall thickening /edema. There is no bowel obstruction. There is a moderate volume of stool in the colon. The appendix is normal. The small bowel loops are unremarkable. Status post gastric surgery. There is no hiatal hernia. ABDOMINAL WALL: No significant hernia is appreciated. LYMPH NODES: There are multiple retroperitoneal lymph nodes. Largest at the aortic bifurcation on the right measuring 1.6 cm. There are multiple lymph nodes at the root of the mesentery. There are retrocrural lymph nodes at the aortic hiatus. Lymphadenopathy is new since the prior CAT scan of 03/21/2020. VASCULAR: Scattered vascular calcifications throughout the abdomen and the pelvis. No aneurysm of the aorta. The portal vein at the carolyn hepatis appears to have normal enhancement but is not well seen due to the surrounding edema at the carolyn hepatis. PELVIC VISCERA: Status post hysterectomy. OSSEOUS STRUCTURES: Multilevel degenerative spondylosis of the spine. IMPRESSION: 1. There are 2 catheters present in the right upper quadrant. There is a biliary drainage catheter extending through the left lobe of liver into the duodenum. There is a percutaneous cholecystotomy catheter still present. 2. There is persistent edema around the gallbladder. 3. There is now also abdominal ascites. Small volume of free fluid in the abdomen and pelvis. This is new since 03/21/2020. 4. There is lymphadenopathy in the retroperitoneum and at the aortic hiatus which is new since prior exam. 5. New small bilateral pleural effusions and bibasilar atelectasis. 6. Normal enhancement of the portal vein without evidence of thrombus. Portal vein is surrounded by edema and is not well seen at the carolyn hepatis. 7. Diverticulosis of colon. There is no acute abnormality of the bowel.
--- NOTE | 2020-04-16 15:57 | PC.NURSE ---
pt is a very tough stick. 20g r ac placed by md davalos,ultrasound guided
[2020-04-16] MEDS: iohexoL 350 MG/ML 100 ML INFUS..BTL IV (16:23)
--- NOTE | 2020-04-16 17:19 | PC.NURSE ---
hospitalist at bedside
--- NOTE | 2020-04-16 17:48 | PM.EVENT ---
Event Note Event Note: Patient seen and examined independently and was present during berger portion of E/M service. Agree with midlevel's history, physical, assessment, and plan. 84F presnted with gi bleed gi bleed monitor cbc, gi eval, follow up bleeding scan
--- NOTE | 2020-04-16 18:51 | PC.NURSE ---
shoshana/hospitalist at bedside states ok for pt to have some ice chips. awaiting bed management for bed placement.
--- NOTE | 2020-04-16 18:57 | PM.IMHP ---
History of Present Illness Date of Service: 04/16/20 <MATHEUS Marvin - Last Filed: 04/16/20 20:51> Chief Complaint: gi bleeding <MATHEUS Marvin - Last Filed: 04/16/20 20:51> this is an 84-year-old female with a history of atrial fibrillation on Coumadin who was sent to the emergency department today due to rectal bleeding. Patient was discharged on April 14 after admission for GI bleeding in the setting of supratherapeutic INR and accidental Coumadin overdose. She underwent EGD which showed evidence of gastritis but no active bleeding. She was discharged to longterm facility with Coumadin on hold for additional weak. Her INR was checked yesterday and noted to be 8 despite not taking any Coumadin. She was given 2.5 mg of oral vitamin K. today patient had episode of epistaxis as well as multiple episodes of rectal bleeding. Patient denies any vomiting, fever, chills. Lab work in the emergency department revealed leukocytosis of 23.2 and elevated LFTs which are at the patient's baseline. Her H/H was stable compared to discharge. She has remained hemodynamically stable. Previous admission on March 10 for acute on chronic cholecystitis. Cholecystostomy tube was placed by IR guidance on March 11. She had an uncomplicated hospital course was discharged home with visiting nurses on March 13. She was discharged with a course of Augmentin. She had been feeling well until SundayMarch 19. She returned to the ED with decreased appetite, decreased p.o. intake and generalized pruritus. Lab work was significant for acute kidney injury with a serum creatinine of 2.65, hypokalemia and lactic acidosis. Her LFTs were noted to be significantly elevated in obstructive pattern. She underwent a CAT scan of the abdomen which showed dilated and inflammatory changes and thickening around the gallbladder causing likely partial CBD obstruction. An ERCP was attempted but unable to be completed due to difficult anatomy. She underwent an MRCP which showed questionable stricture. She was transferred to [facility] where an ERCP was attempted but also unable to be completed. She underwent IR biliary drain placement and was discharged home on March 31 with brushings of biliary stricture pending. <MATHEUS Marvin - Last Filed: 04/16/20 20:51> Review of Systems Review of Systems: Yes all other systems are reviewed and are negative <MATHEUS Marvin - Last Filed: 04/16/20 20:51> Cardiovascular: Cardiovascular: Denies chest pain <MATHEUS Marvin - Last Filed: 04/16/20 20:51> Respiratory: Respiratory: Denies cough <MATHEUS Marvin - Last Filed: 04/16/20 20:51> Gastrointestinal: Gastrointestinal: Denies abdominal pain <MATHEUS Marvin - Last Filed: 04/16/20 20:51> Musculoskeletal: Musculoskeletal: Reports back pain <MATHEUS Marvin - Last Filed: 04/16/20 20:51> [facility] Medical History: Medical History (Updated 04/22/20 @ 00:00 by Antonio Jean) Acute blood loss anemia Adjustment disorder with mixed anxiety and depressed mood Anemia Aspiration pneumonia Atrial fibrillation Biliary stricture Breast cancer Cholecystostomy tube dysfunction Diastolic CHF GI bleed High cholesterol History of breast cancer History of gastric cancer HTN (hypertension) Hypothyroid Nausea & vomiting NSTEMI (non-ST elevated myocardial infarction) Psoriasis Restless leg syndrome Transaminitis Uterine cancer <MATHEUS Marvin - Last Filed: 04/16/20 20:51> Family History: Family History (Updated 04/19/20 @ 11:30 by ESTEPHANIA Fine) Father Hypertension Cancer Mother Hypertension Sister Cancer <MATHEUS Marvin - Last Filed: 04/16/20 20:51> Surgical History: Surgical History (Updated 04/19/20 @ 12:38 by Richie Walker MD) History of cardiac catheterization History of partial gastrectomy History of toe surgery S/P breast lumpectomy S/P TALYA-[id number] (total abdominal hysterectomy and bilateral salpingo-oophorectomy) <MATHEUS Marvin - Last Filed: 04/16/20 20:51> Social History: Social History Household Members: Spouse Housing: Assisted Living Facility Alcohol intake: never Smoking Status: Former smoker Second Hand Smoke Exposure: No service: No Current occupational status: retired <MATHEUS Marvin Last Filed: 04/16/20 20:51> Meds Allergies/Adverse reactions: Allergies Allergy/AdvReac Type Severity Reaction Status Date / Time amlodipine Allergy Unknown Unknown Verified 04/19/20 11:24 lisinopril Allergy Unknown Unknown Verified 04/19/20 11:24 acetaminophen AdvReac Unknown VOMITING Verified 04/19/20 11:24 [From Tylenol-Codeine] <MATHEUS Marvin Last Filed: 04/16/20 20:51> Home medications: Home Medications Medication Instructions Recorded Confirmed Type atorvastatin 1 tab PO BEDTIME 04/04/20 04/16/20 History calcipotriene 1 applic TOPICAL BID 04/04/20 04/16/20 History furosemide 1 tab PO DAILY 04/04/20 04/16/20 History metoprolol succinate 1 tab PO DAILY 04/04/20 04/16/20 History levothyroxine 88 mcg PO QAM 04/16/20 04/17/20 History <MATHEUS Marvin - Last Filed: 04/16/20 20:51> Physical Exam Vital Signs and Narrative: Vital Signs: Last Vital Signs Temp 97.7 F 04/16/20 18:05 Pulse 95 04/16/20 18:05 Resp 18 04/16/20 18:05 BP 114/67 04/16/20 18:05 Pulse Ox 100 04/16/20 18:05 Body Mass Index 30.4 <MATHEUS Marvin Last Filed: 04/16/20 20:51> Const: General: alert, awake and ill appearing <MATHEUS Marvin Last Filed: 04/16/20 20:51> Orientation/consciousness: patient oriented x3 <MATHEUS Marvin Last Filed: 04/16/20 20:51> HENMT: Head: Yes normocephalic and Yes atraumatic <MATHEUS Marvin Last Filed: 04/16/20 20:51> Eyes: Sclerae: scleral abnormal ( scleral icterus) <MATHEUS Marvin Last Filed: 04/16/20 20:51> Pupils: Equal, round and reactive pupils present <MATHEUS Marvin Last Filed: 04/16/20 20:51> EOM: EOMs intact bilaterally <MATHEUS Marvin Last Filed: 04/16/20 20:51> Resp: Effort & Inspection: normal respiratory effort, no respiratory distress and no use of accessory muscles <MATHEUS Marvin - Last Filed: 04/16/20 20:51> Cardio: Other: irregularly irregular rhythm <MATHEUS Marvin - Last Filed: 04/16/20 20:51> GI: Other: biliary drainage catheter with small amount of dark output <MATHEUS Marvin - Last Filed: 04/16/20 20:51> Inspection: Yes other (cholecystostomy tube is clamped) <MATHEUS Marvin - Last Filed: 04/16/20 20:51> Palpation (GI): Soft to palpation and nontender <MATHEUS Marvin - Last Filed: 04/16/20 20:51> Skin: General skin exam: jaundice <MATHEUS Marvin - Last Filed: 04/16/20 20:51> Neuro: General: patient oriented x3 <MATHEUS Marvin - Last Filed: 04/16/20 20:51> Cranial nerves: Yes Equal, round and reactive pupils present <MATHEUS Marvin - Last Filed: 04/16/20 20:51> Results Labs Labs: Laboratory Tests 04/16/20 04/16/20 04/16/20 12:06 12:06 12:06 WBC 23.2 H RBC 3.34 L Hgb 9.5 L Hct 29.9 L MCV 89.5 MCH 28.4 MCHC 31.8 RDW 18.7 H Plt Count 409 H MPV 9.4 Immature Gran % (Auto) 3.3 H Neut % (Auto) 83.4 H Lymph % (Auto) 7.1 L [place] % (Auto) 5.3 Eos % (Auto) 0.6 Baso % (Auto) 0.3 Lymph # (Auto) 1.7 [place] # (Auto) 1.2 Eos # (Auto) 0.1 Baso # (Auto) 0.1 Abs Immat Gran (auto) 0.77 H Absolute Neuts (auto) 19.3 H Absolute Nucleated RBC 0.020 H Nucleated RBC % (auto) 0.1 PT 22.3 H D INR 1.9 H Sodium Potassium Chloride Carbon Dioxide Anion Gap BUN Creatinine Estim Creat Clear Calc Estimated GFR Random Glucose Lactic Acid Calcium Magnesium Total Bilirubin Direct Bilirubin AST ALT Alkaline Phosphatase Total Protein Albumin Stool Occult Blood POS Blood Type Antibody Screen 04/16/20 04/16/20 04/16/20 12:06 12:47 12:57 WBC RBC Hgb Hct MCV MCH MCHC RDW Plt Count MPV Immature Gran % (Auto) Neut % (Auto) Lymph % (Auto) [place] % (Auto) Eos % (Auto) Baso % (Auto) Lymph # (Auto) [place] # (Auto) Eos # (Auto) Baso # (Auto) Abs Immat Gran (auto) Absolute Neuts (auto) Absolute Nucleated RBC Nucleated RBC % (auto) PT INR Sodium 129 L Potassium 4.5 Chloride 95 L Carbon Dioxide 22 Anion Gap 17 BUN 26 H Creatinine 1.06 Estim Creat Clear Calc 46.6 Estimated GFR 49 Random Glucose 89 Lactic Acid 1.5 Calcium 8.2 L Magnesium 2.1 Total Bilirubin 3.7 H Direct Bilirubin 2.8 H AST 77 H ALT 34 H Alkaline Phosphatase 537 H D Total Protein 6.4 L Albumin 2.9 L Stool Occult Blood Blood Type A Positive Antibody Screen NEGATIVE <MATHEUS Marvin - Last Filed: 04/16/20 20:51> Assessment and Plan (1) Gastrointestinal bleed: Status: Acute <MATHEUS Marvin - Last Filed: 04/16/20 20:51> this is a 84-year-old female with history of atrial fibrillation on Coumadin, dyslipidemia, diastolic CHF, Hypothyroidism, biliary stricture status post biliary drain placement, recent admission for GI bleeding who presents with rectal bleeding. GI bleed INR 8 yesterday despite no Coumadin since discharge. given 2.5 mg p.o. vitamin K yesterday. INR today 1.9 - clear liquid diet, IV fluid - GI consult - trend CBC, no need to transfusion at this time Elevated LFTs chroic due to recent cholecystitis/biliary obstruction, although increase in Alk phos results from brushings from common hepatic duct show atypical cells present -trend LFTs - will consult oncology leukocytosis chronic chest x-ray shows no infection, UA pending atrial fibrillation Rate controlled -Hold coumadin diastolic CHF -lasix on held HLD - hold statin hypothyroidism -continue synthroid once reviewed by pharmacy dvt ppx - mechanical devices code status - DNR/DNI This case was discussed with Dr. dan <MATHEUS Marvin - Last Filed: 04/16/20 20:51>
[2020-04-16] MEDS: Morphine Sulfate 4 MG/ML CARTRIDGE 2 MG IVPUSH (20:30)
--- NOTE | 2020-04-16 20:30 | PC.NURSE ---
PT MEDICATED FOR REPORTS OF ABD PAIN AND TOTAL BODY DISCOMFORT. ORAL CARE PROVIDED FOR COMFORT AT PT REQUEST. BED ASSIGNMENT RECEIVED. CALL TO [facility] [place], AWAITING CALLBACK.
[2020-04-16] MEDS: 0.9 % Sodium Chloride 1,000 ML 75 ML IVCONT (22:38)
[2020-04-17] VITALS (7 sets, daily range): BP systolic 131–151; BP diastolic 59–78; PULSE 76–118; RESP 18–22; TEMP 35.9–37.1; O2SAT 93–98
[2020-04-17] MEDS: 0.9 % Sodium Chloride Flush 3 ML SYRINGE IVFLUSH ×2 (00:43→09:22)
[2020-04-17 06:40] LABS: MANUAL DIFF FLAG NO
[2020-04-17 06:47] LABS: Basophils Absolute Auto 0.1 X10*3/uL (0.0-0.2); Basophils Percent Auto 0.3 % (0-2); Eosinophils Absolute Auto 0.2 X10*3/uL (0.0-0.4); Hematocrit 29.4 % (37-47); Hemoglobin 9.4 g/dl (12.0-16.0); Imm Gran Abs Auto 0.59 X10*3/uL (0.00-0.03); Imm Gran Pct Auto 2.7 % (0.0-0.4); Lymphocytes Absolute Auto 1.3 X10*3/uL (1.2-4.9); Lymphocytes Percent Auto 5.7 % (20-40); Mean Corpuscular Hemoglobin 29.2 pg (27.0-33.0); Mean Corpuscular Volume 91.3 fL (80-98); Monocytes Absolute Auto 1.4 X10*3/uL (0.1-1.2); Monocytes Percent Auto 6.6 % (2-11); Neutrophils Absolute Auto 18.4 X10*3/uL (2.0-8.3); Neutrophils Percent Auto 83.7 % (45-73); Platelet Count 357 X10*3/uL (160-400); Red Blood Count 3.22 X10*6/uL (4.20-5.50); White Blood Count 21.9 X10*3/uL (4.8-10.8)
[2020-04-17 06:57] LABS: INTERNATIONAL NORM RATIO 1.6 (0.9-1.1); Prothrombin Time 18.6 SEC (10.8-13.0)
[2020-04-17 07:24] LABS: Alanine Aminotransferase 36 U/L (0-31); Albumin Level 2.7 g/dL (3.5-5.0); Alkaline Phosphatase 626 U/L (39-117); Anion Gap 18 (12-20); Aspartate Amino Transferase 91 U/L (5-31); Bilirubin Direct 2.9 mg/dL (0.0-0.5); Bilirubin Total 3.7 mg/dL (0.0-1.0); Blood Urea Nitrogen 23 mg/dL (9-16); Calcium 7.9 mg/dL (8.4-10.2); Carbon Dioxide 21 mmol/L (22-29); Chloride 98 mmol/L (96-108); Creatinine Clr Calc Pharmacy 50.9; Estimated Glomerular Filt Rate 55; Glucose Random 81 mg/dL (60-115); Potassium 4.2 mmol/l (3.3-5.1); Sodium 133 mmol/L (135-145)
[2020-04-17] MEDS: Metoprolol Succinate ER 100 MG TAB.ER.24H PO (09:21)
--- NOTE | 2020-04-17 10:10 | HO.PM.IMPN ---
Subjective Subjective Date of Service: 04/17/20 Interval History: no further bleeding Cardiovascular Cardiovascular: Reports no additional cardiovascular complaints Respiratory Respiratory: Reports no additional respiratory complaints Physical Exam Vital Signs: Vital Signs: Vital Signs Temp Pulse Resp BP Pulse Ox 04/17/20 09:21 118 H 145/78 H 04/17/20 08:00 97.0 F 118 H 22 H 145/78 H 98 04/17/20 04:00 98.8 F 97 18 151/67 H 93 04/16/20 23:58 98.4 F 82 18 136/62 94 04/16/20 22:09 97 F 94 18 133/70 95 04/16/20 20:00 97.8 F 95 16 96 04/16/20 18:05 97.7 F 95 18 114/67 100 04/16/20 16:30 16 04/16/20 14:25 78 20 125/54 L 98 04/16/20 12:37 97.7 F 100 22 H 125/54 L 99 04/16/20 11:03 98.5 F 90 15 103/42 L 98 Body Mass Index 30.4 General: AO X 3, anxious, juandiced Resp: CTA bilateral CVS: S1,S2,RRR GI: soft, non tender, non distended, tubes in place Neuro: motor grossly intact Psych: anxious Objective Data Current Medications Generic Name Dose Route Start Last Admin Trade Name Freq PRN Reason Stop Dose Admin Cefuroxime Axetil 500 mg 04/16/20 22:00 04/17/20 09:20 Cefuroxime Axetil 500 Mg Tablet PO 500 mg Q12H DEE Administration Docusate Sodium 100 mg 04/16/20 21:47 Docusate Sodium 100 Mg Capsule PO DAILY PRN Constipation Doxycycline Hyclate 100 mg 04/16/20 22:00 04/17/20 09:20 Doxycycline Hyclate 100 Mg Tablet PO 100 mg Q12H DEE Administration Sodium Chloride 1,000 mls @ 75 mls/hr 04/16/20 21:47 04/16/20 22:58 Ns IVCONT 75 mls/hr .[id number] DEE Infusion Metoprolol Succinate 100 mg 04/17/20 09:00 04/17/20 09:21 Metoprolol Succinate Er 100 Mg Tab.Er.24h PO 100 mg DAILY DEE Administration Protocol Morphine Sulfate 7.5 mg 04/16/20 21:47 Morphine Sulfate Immed Release 15 Mg Tablet PO Q6H PRN Pain, Severe (Pain Scale 7-10) Ondansetron HCl 4 mg 04/16/20 21:47 Ondansetron Hcl 4 Mg/2 Ml Vial IVPUSH Q8H PRN Nausea and Vomiting Pharmacy Consult 1 each 04/16/20 17:13 Consult Rx Perform Med Rec MISCELLANE ONCE PRN Consult order Sodium Chloride 3 ml 04/17/20 00:00 04/17/20 09:22 0.9 % Sodium Chloride Flush 3 Ml Syringe IVFLUSH 3 ml QSHIFT DEE Administration Labs CBC & Chem 7: 04/17/20 05:49 04/17/20 05:49 Assessment and Plan (1) Gastrointestinal bleed: Status: Acute Assessment and Plan: 84-year-old female with history of atrial fibrillation on Coumadin, dyslipidemia, diastolic CHF, Hypothyroidism, biliary stricture status post biliary drain placement, recent admission for GI bleeding who presented with rectal bleeding. GI bleed INR 8 yesterday despite no Coumadin since discharge. given 2.5 mg p.o. vitamin K yesterday. INR yesterday 1.9 today 1.6 clear liquid diet, IV fluid GI consult hgb stable 9.5, now 9.4 Elevated LFTs chronic due to recent cholecystitis/biliary obstruction, although increase in Alk phos results from brushings from common hepatic duct show atypical cells present oncology eval resent respiratory infection continue ceftin, doxy 2 more days leukocytosis chronic atrial fibrillation Rate controlled on metoprolol -Hold coumadin, probably will not be able to tolerate a/c moving forward diastolic CHF -lasix on hold HLD statin hypothyroidism -continue synthroid once reviewed by pharmacy dvt ppx - mechanical devices code status - DNR/DNI
[2020-04-17] MEDS: ondansetron HCL 4 MG/2 ML VIAL IVPUSH ×2 (10:28→21:44)
--- NOTE | 2020-04-17 10:48 | PM.GICN ---
History of Present Illness Data of Consult Service Date: 04/17/20 Requesting physician: Cece Nolan Primary Care Provider: MD ORIN Sharma Reason for consult: rectal bleeding 84-year-old female with a history of atrial fibrillation on Coumadin, suspected CBD stricture s/p cholecystostomy tube and PTC and hyperlipidemia who I am asked to see for rectal bleeding. Patient had episode of epistaxis as well as rectal bleeding whoch she says was only noted on wiping otherwise she is unclear if blood was present. Patient denied any vomiting, fever, chills. Lab work in the emergency department revealed leukocytosis of 23.2 and elevated LFTs which are at the patient's baseline. Her H/H was stable compared to discharge and vitals were stable. Apparently her NR was checked even though she was not on coumadin and was 8 so she got vit K and INR was much lower on repeat. Patient was discharged on April 14 after admission for GI bleeding in the setting of supratherapeutic INR and had ED with gastritis but no active bleeding. She underwent EGD which showed evidence of gastritis but no active bleeding. CT this admission with new abdominal lymphadenopathy not sen on prior imaging, prior biliary brushings with atypical cells. Overall she is fed up and wants tests to be minimzed and to be left alone. Review of Systems Constitutional: Constitutional: Denies headache(s) and Denies weakness ENT: Denies dizziness and Denies headache(s) Musculoskeletal: Musculoskeletal: Denies numbness and Denies tingling Neurologic: Reports system reviewed and no additional complaints, except as documented, Denies dizziness, Denies headache(s), Denies numbness, Denies tingling and Denies weakness [facility] Past Medical History Medical History Abnormal transaminases Adjustment disorder with mixed anxiety and depressed mood Anemia Aspiration pneumonia Atrial fibrillation Biliary stricture Breast cancer Cholecystostomy tube dysfunction Diastolic CHF GI bleed High cholesterol HTN (hypertension) Hypothyroid NSTEMI (non-ST elevated myocardial infarction) Psoriasis Restless leg syndrome Stomach cancer Uterine cancer Surgical History Surgical History History of cardiac catheterization History of partial gastrectomy S/P breast lumpectomy S/P TALYA-BSO (total abdominal hysterectomy and bilateral salpingo-oophorectomy) Social History Social History Household Members: Spouse Housing: Assisted Living Facility Alcohol intake: never Smoking Status: Never smoker Smoked in Last 30 Days: No Second Hand Smoke Exposure: No Use of substances other than those prescribed or required for medical reasons: No Currently Displaying Signs/Symptoms of Drug Intoxication Withdrawal: No Have you been hit, kicked, punched, or otherwise hurt by someone within the past year? If so, by whom?: No Do you feel safe in your current relationship?: Yes Is there a partner from a previous relationship who is making you feel unsafe now?: No Are you made to feel afraid or neglected: No Advance Directives: No Advance Directives Information Provided: Yes Do you have thoughts of harming others: None Do you have a plan to hurt others: No Plan Recently lost weight without trying: No service: No Current occupational status: retired Meds Allergies Allergy/AdvReac Type Severity Reaction Status Date / Time amlodipine Allergy Unknown Unknown Verified 04/05/20 04:24 lisinopril Allergy Unknown Unknown Verified 04/05/20 04:24 acetaminophen AdvReac Unknown VOMITING Verified 04/05/20 04:24 [From Tylenol-Codeine] Codeine Phosphate Allergy Unknown vomiting Uncoded 04/05/20 04:24 Codeine Sulfate Allergy Unknown Unknown Uncoded 04/05/20 04:24 From Tylenol-Codeine AdvReac Unknown VOMITING Uncoded 04/05/20 04:24 Home Medications Medication Instructions Recorded Confirmed Type atorvastatin 1 tab PO BEDTIME 04/04/20 04/16/20 History calcipotriene 1 applic TOPICAL BID 04/04/20 04/16/20 History furosemide 1 tab PO DAILY 04/04/20 04/16/20 History metoprolol succinate 1 tab PO DAILY 04/04/20 04/16/20 History levothyroxine 88 mcg PO QAM 04/16/20 04/17/20 History Physical Exam Vital Signs: Vital Signs: Vital Signs Temp Pulse Resp BP Pulse Ox 04/17/20 09:21 118 H 145/78 H 04/17/20 08:00 97.0 F 118 H 22 H 145/78 H 98 04/17/20 04:00 98.8 F 97 18 151/67 H 93 04/16/20 23:58 98.4 F 82 18 136/62 94 04/16/20 22:09 97 F 94 18 133/70 95 04/16/20 20:00 97.8 F 95 16 96 04/16/20 18:05 97.7 F 95 18 114/67 100 04/16/20 16:30 16 04/16/20 14:25 78 20 125/54 L 98 04/16/20 12:37 97.7 F 100 22 H 125/54 L 99 04/16/20 11:03 98.5 F 90 15 103/42 L 98 Body Mass Index 30.4 General: AO X 3, anxious, juandiced Resp: CTA bilateral CVS: S1,S2,RRR GI: soft, non tender, non distended, tubes in place Neuro: motor grossly intact Psych: anxious Const: General: cooperative, healthy appearing, comfortable, no acute distress, alert, awake and ill appearing Orientation/consciousness: patient oriented x3 Limitations: no limitations HENMT: Head: Yes normal to inspection, Yes normocephalic and Yes atraumatic Ears: hearing grossly normal bilaterally General nose exam: Normal external nose present Face and sinus: Yes normal facial exam Mouth: Normal oral and palatal mucosa present Throat: Yes posterior oropharynx normal Eyes: General: appearance normal, both eyes and all related structures Sclerae: scleral abnormal ( scleral icterus) Pupils: Equal, round and reactive pupils present EOM: EOMs intact bilaterally Neck: Neck: Yes normal visual inspection Chest: Chest palpation & inspection: normal inspection of the chest Resp: Other: Speaking short phrases, anxious diminished breath sounds bilaterally Effort & Inspection: normal respiratory effort, no respiratory distress and no use of accessory muscles Auscultation: clear to auscultation bilaterally Cardio: Other: irregularly irregular rhythm Rate: regular rate Rhythm: regular rhythm Peripheral pulses: Peripheral pulses 2+ throughout GI: Other: biliary drainage catheter with small amount of dark output Inspection: Yes normal to inspection and Yes other (cholecystostomy tube is clamped) Palpation (GI): Soft to palpation and nontender Auscultation: normal bowel sounds Back/Spine/Pelvis: Thoracic/Lumbar Spine: thoracic and lumbar spine normal to inspection Skin: General skin exam: no rashes or lesions noted and jaundice Neuro: General: patient oriented x3 Cranial nerves: Yes Equal, round and reactive pupils present Cognition (Neuro): normal cognition Gait exam (Neuro): Normal gait present Motor exam (neuro): 5/5 motor strength present throughout Extrem: General: Yes normal to inspection Results Labs CBC & Chem 7: 04/17/20 05:49 04/17/20 05:49 Labs: Short CBC 04/16/20 04/17/20 Range/Units 12:06 05:49 WBC 23.2 H 21.9 H (4.8-10.8) X10*3/uL Hgb 9.5 L 9.4 L (12.0-16.0) g/dl Hct 29.9 L 29.4 L (37-47) % Plt Count 409 H 357 (160-400) X10*3/uL BMP 04/16/20 04/17/20 12:06 05:49 Sodium 129 L 133 L Potassium 4.5 4.2 Chloride 95 L 98 Carbon Dioxide 22 21 L BUN 26 H 23 H Creatinine 1.06 0.97 Calcium 8.2 L 7.9 L Liver Function 04/16/20 04/17/20 Range/Units 12:06 05:49 Total Bilirubin 3.7 H 3.7 H (0.0-1.0) mg/dL Direct Bilirubin 2.8 H 2.9 H (0.0-0.5) mg/dL AST 77 H 91 H (5-31) U/L ALT 34 H 36 H (0-31) U/L Alkaline Phosphatase 537 H D 626 H (39-117) U/L Albumin 2.9 L 2.7 L (3.5-5.0) g/dL CT scan 04/16/2020 IMPRESSION: 1. There are 2 catheters present in the right upper quadrant. There is a biliary drainage catheter extending through the left lobe of liver into the duodenum. There is a percutaneous cholecystotomy catheter still present. 2. There is persistent edema around the gallbladder. 3. There is now also abdominal ascites. Small volume of free fluid in the abdomen and pelvis. This is new since 03/21/2020. 4. There is lymphadenopathy in the retroperitoneum and at the aortic hiatus which is new since prior exam. 5. New small bilateral pleural effusions and bibasilar atelectasis. 6. Normal enhancement of the portal vein without evidence of thrombus. Portal vein is surrounded by edema and is not well seen at the carolyn hepatis. 7. Diverticulosis of colon. There is no acute abnormality of the bowel Assessment and Plan (1) Gastrointestinal bleed: Status: Acute (2) Abnormal LFTs: Status: Acute 1/ REctal bleeding, not a very convincing hx with HGB pretty stable, could be mucosal bleeding in setting of high INR (could be low in VIT K or malabsorption), would hold colonoscopy at thsi time jessica given her reluctance with further invasive testing, maybe worth discussion on goals of care 2/ abn LFT< rasied WCC is concerning, need to wach biliary output, if any concern for stent blockage then recosult with IR for cholangiogram and tube replacement, check for other sources of infection
--- NOTE | 2020-04-17 11:30 | P.CNHO_ITS ---
Subjective - Subjective Chief complaint: biliary stricture with atypical cells Patient: new to practice Consult date: 04/17/20 (needs GI) Requesting Physician: jose miguel Primary Care Provider: Lex Velazco MD Family Provider: unknown Medical Summary: She has a known biliary stricture. Endoscopy at [facility] showed atypical cells. HPI - Consult Narrative Reason for consult: biliary stricture Narrative: Joann Toro is a 84 year old female She says she has been ill since March. She has been found to have a bile duct stricture with atypical cells at [facility]. Review of Systems - Constitutional Reports anorexia, Reports headache(s) - Eyes Reports discharge, Reports dry eyes - ENT Reports dizziness, Reports other - Cardiovascular Reports shortness of breath when lying down - Respiratory Reports cough - Gastrointestinal Reports abdominal pain, Reports belching - Genitourinary Reports absent period - Musculoskeletal Reports body aches - Integumentary/Breasts Skin/Breast: Reports stretch fernandez - Neurologic Reports system reviewed and no additional complaints, except as documented, Reports confusion, Denies abnormal speech, Denies headache(s), Denies numbness, Denies tingling, Denies weakness - Psychiatric Reports anxiety - Endocrine Reports other - Hematologic/Lymphatic Reports other - Allergic/Immunologic Reports other Oncology Screenings - Immunizations Influenza Immunization Status: Unknown Pneumoccocal Immunization Status: Unknown - ECOG Performance Status ECOG Performance Status: 3 - G8 Geriatric Assessment Change in food intake over past 3 months: Moderate decrease in food intake Weight loss during the last 3 months: Between 1 and 3 kg Mobility: Able to get out of bed/chair, but does not go out Neuropsychological problems: No psychological problems Body Mass Index: 21 to 22 Patient takes > 3 prescription drugs per day: Yes Patient's assessment of health status compared to others: Does not know Patient age: 80 to 85 G8 Score: 10 G8 Risk Level: High risk for early functional decline and reduced survival. - Blackwell Frail Scale Patient reports weight loss: Yes Patient often feels sad or depressed: Yes Patient experiences incontinence: No # Sec for patient to walk 3m distance and return to chair: 11-20 Sec Blackwell Frail Scale Score: 3 Frailty Level: Not Frail - [place] VTE Risk Cancer Type: Other Pre-chemo platelet count >= 350,000/uL: Yes Hemoglobin level <10 g/dL or using RBC growth factors: Yes Pre-chemo leukocyte count > 11,000/uL: Yes BMI >=35: Yes VTE Risk Score:: 4 [place] VTE Risk: High VTE Risk [facility] Medical History: Medical History (Last Reviewed 04/17/20 @ 21:38 by Dino Paredes MD) Abnormal transaminases Adjustment disorder with mixed anxiety and depressed mood Anemia Aspiration pneumonia Atrial fibrillation Biliary stricture Breast cancer Cholecystostomy tube dysfunction Diastolic CHF GI bleed High cholesterol HTN (hypertension) Hypothyroid NSTEMI (non-ST elevated myocardial infarction) Psoriasis Restless leg syndrome Stomach cancer Uterine cancer Cognitive capacity: good Functional capacity: independent ambulation Patient : No Family History: Family History (Last Updated 04/19/20 @ 11:30 by ESTEPHANIA Fine) Father Hypertension Cancer Mother Hypertension Sister Cancer Surgical History: Surgical History (Last Updated 04/19/20 @ 11:27 by ESTEPHANIA Fine) History of cardiac catheterization History of partial gastrectomy History of toe surgery S/P breast lumpectomy S/P TALYA-BSO (total abdominal hysterectomy and bilateral salpingo-oophorectomy) Smoking status: Former smoker Second hand tobacco smoke exposure: No Home Medications and Allergies Current Medications: Current Medications Generic Name Dose Route Start Last Admin Trade Name Freq PRN Reason Stop Dose Admin Alprazolam 0.25 mg 04/17/20 10:15 Alprazolam 0.25 Mg Tablet PO TID PRN anxiety Atorvastatin Calcium 40 mg 04/17/20 21:00 Atorvastatin Calcium 40 Mg Tablet PO BEDTIME DEE Cefuroxime Axetil 500 mg 04/16/20 22:00 04/17/20 09:20 Cefuroxime Axetil 500 Mg Tablet PO 500 mg Q12H DEE Administration Docusate Sodium 100 mg 04/16/20 21:47 Docusate Sodium 100 Mg Capsule PO DAILY PRN Constipation Doxycycline Hyclate 100 mg 04/16/20 22:00 04/17/20 09:20 Doxycycline Hyclate 100 Mg Tablet PO 100 mg Q12H DEE Administration Sodium Chloride 1,000 mls @ 75 mls/hr 04/16/20 21:47 04/16/20 22:58 Ns IVCONT 75 mls/hr .[id number] DEE Infusion Levothyroxine Sodium 88 mcg 04/18/20 06:00 Levothyroxine Sodium 88 Mcg Tablet PO DAILY@0600 DEE Metoprolol Succinate 100 mg 04/17/20 09:00 04/17/20 09:21 Metoprolol Succinate Er 100 Mg Tab.Er.24h PO 100 mg DAILY [facility] Administration Protocol Morphine Sulfate 7.5 mg 04/16/20 21:47 Morphine Sulfate Immed Release 15 Mg Tablet PO Q6H PRN Pain, Severe (Pain Scale 7-10) Ondansetron HCl 4 mg 04/16/20 21:47 04/17/20 10:28 Ondansetron Hcl 4 Mg/2 Ml Vial IVPUSH 4 mg Q8H PRN Administration Nausea and Vomiting Pharmacy Consult 1 each 04/16/20 17:13 Consult Rx Perform Med Rec MISCELLANE ONCE PRN Consult order Sodium Chloride 3 ml 04/17/20 00:00 04/17/20 09:22 0.9 % Sodium Chloride Flush 3 Ml Syringe IVFLUSH 3 ml QSHIFT [facility] Administration Home Medications Medication Instructions Recorded Confirmed Type atorvastatin 1 tab PO BEDTIME 04/04/20 04/16/20 History calcipotriene 1 applic TOPICAL BID 04/04/20 04/16/20 History furosemide 1 tab PO DAILY 04/04/20 04/16/20 History metoprolol succinate 1 tab PO DAILY 04/04/20 04/16/20 History levothyroxine 88 mcg PO QAM 04/16/20 04/17/20 History Allergies Allergy/AdvReac Type Severity Reaction Status Date / Time amlodipine Allergy Unknown Unknown Verified 04/19/20 11:24 lisinopril Allergy Unknown Unknown Verified 04/19/20 11:24 acetaminophen AdvReac Unknown VOMITING Verified 04/19/20 11:24 [From Tylenol-Codeine] Physical Exam Vital signs: Vital Signs Temp 97.0 F 04/17/20 08:00 Pulse 118 H 04/17/20 09:21 Resp 22 H 04/17/20 08:00 BP 145/78 H 04/17/20 09:21 Pulse Ox 98 04/17/20 08:00 Intake & Output 04/16/20 04/17/20 04/17/20 18:59 06:59 18:59 Intake Total 505 / 505 Output Total 500 / 500 Balance 5 / 5 Urine Output (Average ml/kg/hr) 0.46 0.46 Intake: Intake, Oral Amount 480 / 480 Intake, IV Amount 25 / 25 0.9 % Sodium Chloride 1,000 ml 25 / 25 @ 75 mls/hr IVCONT .[id number] [facility] Rx#:[id number] Output: Output, Urine Amount 500 / 500 Other: Breakfast % Eaten 100% Urine Bedside Commode Weight 91 kg Weight 91 kg - Constitutional Present: no acute distress - Routine HEENT Exam Head: Present: normocephalic ENT: Present: mucous membranes moist - Routine Respiratory Exam Present: decreased breath sounds - Routine Cardiovascular Exam Cardiovascular: Present: RRR - Routine Abdominal Exam Present: diminished bowel sounds, soft - Routine Psychiatric Exam Present: normal affect, good judgment Hem/Onc Consult Result - Labs CBC & Chem 7: 04/19/20 05:36 04/19/20 05:36 Labs: Short CBC 04/16/20 04/17/20 Range/Units 12:06 05:49 WBC 23.2 H 21.9 H (4.8-10.8) X10*3/uL Hgb 9.5 L 9.4 L (12.0-16.0) g/dl Hct 29.9 L 29.4 L (37-47) % Plt Count 409 H 357 (160-400) X10*3/uL BMP 04/16/20 04/17/20 12:06 05:49 Sodium 129 L 133 L Potassium 4.5 4.2 Chloride 95 L 98 Carbon Dioxide 22 21 L BUN 26 H 23 H Creatinine 1.06 0.97 Calcium 8.2 L 7.9 L Liver Function 04/16/20 04/17/20 Range/Units 12:06 05:49 Total Bilirubin 3.7 H 3.7 H (0.0-1.0) mg/dL Direct Bilirubin 2.8 H 2.9 H (0.0-0.5) mg/dL AST 77 H 91 H (5-31) U/L ALT 34 H 36 H (0-31) U/L Alkaline Phosphatase 537 H D 626 H (39-117) U/L Albumin 2.9 L 2.7 L (3.5-5.0) g/dL Procedures - Paracentesis Time out performed: No Assessment and Plan (1) Abnormal LFTs Start date: 04/17/20 (needs GI consult) Status: Acute GI consult and endo0.
[2020-04-17] MEDS: 0.9 % Sodium Chloride 1,000 ML 75 ML IVCONT (11:56)
[2020-04-17] MEDS: ALPRAZolam 0.25 MG TABLET PO (14:46)
[2020-04-17] MEDS: Atorvastatin Calcium 40 MG TABLET PO (21:19)
[2020-04-18] VITALS (9 sets, daily range): BP systolic 119–136; BP diastolic 56–79; PULSE 62–93; RESP 16–20; TEMP 36.1–37.1; O2SAT 90–96
[2020-04-18] MEDS: 0.9 % Sodium Chloride 1,000 ML 75 ML IVCONT ×2 (01:17→15:52)
[2020-04-18] MEDS: Levothyroxine Sodium 88 MCG TABLET PO (05:29)
[2020-04-18] MEDS: ondansetron HCL 4 MG/2 ML VIAL IVPUSH ×2 (05:44→12:01)
[2020-04-18 06:26] LABS: MANUAL DIFF FLAG NO
[2020-04-18 06:46] LABS: Basophils Absolute Auto 0.1 X10*3/uL (0.0-0.2); Basophils Percent Auto 0.3 % (0-2); Eosinophils Absolute Auto 0.2 X10*3/uL (0.0-0.4); Eosinophils Percent Auto 0.7 % (0-4); Hematocrit 31.5 % (37-47); Hemoglobin 9.7 g/dl (12.0-16.0); Imm Gran Abs Auto 0.56 X10*3/uL (0.00-0.03); Imm Gran Pct Auto 2.5 % (0.0-0.4); Lymphocytes Absolute Auto 1.8 X10*3/uL (1.2-4.9); Lymphocytes Percent Auto 8.1 % (20-40); Mean Corpuscular HGB Conc 30.8 g/dl (31.0-35.0); Mean Corpuscular Hemoglobin 28.4 pg (27.0-33.0); Mean Corpuscular Volume 92.1 fL (80-98); Mean Platelet Volume 10.2 fL (9.4-12.3); Monocytes Absolute Auto 1.3 X10*3/uL (0.1-1.2); Monocytes Percent Auto 5.9 % (2-11); NRBC Pct Auto 0.1 /100WBC (0.0-0.2); Neutrophils Absolute Auto 18.6 X10*3/uL (2.0-8.3); Neutrophils Percent Auto 82.5 % (45-73); Platelet Count 356 X10*3/uL (160-400); Red Blood Count 3.42 X10*6/uL (4.20-5.50); Red Cell Distribution Width 19.2 % (11.0-16.0); White Blood Count 22.6 X10*3/uL (4.8-10.8)
[2020-04-18 07:01] LABS: Anion Gap 19 (12-20); Blood Urea Nitrogen 22 mg/dL (9-16); Calcium 8.1 mg/dL (8.4-10.2); Carbon Dioxide 17 mmol/L (22-29); Chloride 100 mmol/L (96-108); Creatinine Clr Calc Pharmacy 49.9; Estimated Glomerular Filt Rate 53; Glucose Fasting 91 mg/dL (60-99); Potassium 4.4 mmol/l (3.3-5.1); Sodium 132 mmol/L (135-145)
[2020-04-18 07:42] LABS: INTERNATIONAL NORM RATIO 1.7 (0.9-1.1); Prothrombin Time 20.3 SEC (10.8-13.0)
[2020-04-18] MEDS: Metoprolol Succinate ER 100 MG TAB.ER.24H PO (09:49)
[2020-04-18] MEDS: 0.9 % Sodium Chloride Flush 3 ML SYRINGE IVFLUSH ×2 (09:50→23:35)
--- NOTE | 2020-04-18 10:24 | HO.PM.IMPN ---
Subjective Subjective Date of Service: 04/18/20 Interval History: some dark stools today, weak Cardiovascular Cardiovascular: Reports no additional cardiovascular complaints Respiratory Respiratory: Reports no additional respiratory complaints Physical Exam Vital Signs: Vital Signs: Vital Signs Temp Pulse Resp BP Pulse Ox 04/18/20 09:49 90 135/79 04/18/20 08:00 98.7 F 90 20 135/79 93 04/18/20 05:00 97.8 F 62 18 133/64 95 04/18/20 04:00 98.0 F 84 18 130/65 04/18/20 00:00 97.5 F 87 18 125/65 04/17/20 20:00 96.7 F L 96 18 135/60 93 04/17/20 19:35 96.7 F L 96 18 135/60 93 04/17/20 15:38 97.8 F 79 20 138/69 94 04/17/20 11:57 97.7 F 76 18 131/59 L 96 Body Mass Index 30.4 General: AO X 3, anxious, juandiced Resp: CTA bilateral CVS: S1,S2,RRR GI: soft, non tender, non distended, tubes in place Neuro: motor grossly intact Psych: anxious Objective Data Current Medications Generic Name Dose Route Start Last Admin Trade Name Freq PRN Reason Stop Dose Admin Alprazolam 0.25 mg 04/17/20 10:15 04/17/20 14:46 Alprazolam 0.25 Mg Tablet PO 0.25 mg TID PRN Administration anxiety Atorvastatin Calcium 40 mg 04/17/20 21:00 04/17/20 21:19 Atorvastatin Calcium 40 Mg Tablet PO 40 mg BEDTIME DEE Administration Cefuroxime Axetil 500 mg 04/16/20 22:00 04/18/20 09:49 Cefuroxime Axetil 500 Mg Tablet PO 500 mg Q12H DEE Administration Docusate Sodium 100 mg 04/16/20 21:47 Docusate Sodium 100 Mg Capsule PO DAILY PRN Constipation Doxycycline Hyclate 100 mg 04/16/20 22:00 04/18/20 09:49 Doxycycline Hyclate 100 Mg Tablet PO 100 mg Q12H DEE Administration Sodium Chloride 1,000 mls @ 75 mls/hr 04/16/20 21:47 04/18/20 01:17 Ns IVCONT 75 mls/hr .[id number] DEE Administration Levothyroxine Sodium 88 mcg 04/18/20 06:00 04/18/20 05:29 Levothyroxine Sodium 88 Mcg Tablet PO 88 mcg DAILY@0600 DEE Administration Metoprolol Succinate 100 mg 04/17/20 09:00 04/18/20 09:49 Metoprolol Succinate Er 100 Mg Tab.Er.24h PO 100 mg DAILY DEE Administration Protocol Morphine Sulfate 7.5 mg 04/16/20 21:47 Morphine Sulfate Immed Release 15 Mg Tablet PO Q6H PRN Pain, Severe (Pain Scale 7-10) Ondansetron HCl 4 mg 04/16/20 21:47 04/18/20 05:44 Ondansetron Hcl 4 Mg/2 Ml Vial IVPUSH 4 mg Q8H PRN Administration Nausea and Vomiting Pharmacy Consult 1 each 04/16/20 17:13 Consult Rx Perform Med Rec MISCELLANE ONCE PRN Consult order Sodium Chloride 3 ml 04/17/20 00:00 04/18/20 09:50 0.9 % Sodium Chloride Flush 3 Ml Syringe IVFLUSH 3 ml QSHIFT DEE Administration Labs CBC & Chem 7: 04/18/20 05:47 04/18/20 05:47 Microbiology Microbiology Results: Microbiology 04/16/20 14:20 Blood - Venous Blood Culture - Preliminary No growth after 24 hours. 04/16/20 14:20 Blood - Venous Blood Culture - Preliminary No growth after 24 hours. 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 GI bleed INR 8 yesterday despite no Coumadin since discharge. given 2.5 mg p.o. vitamin K yesterday. INR yesterday 1.6 today 1.7 GI following continues to have dark stool, but likely not actively bleeding hgb stable 9.5, now 9.7 Elevated LFTs chronic due to recent cholecystitis/biliary obstruction, although increase in Alk phos results from brushings from common hepatic duct show atypical cells present oncology appreciated family requesting surgical follow up resent respiratory infection continue ceftin, doxy 1 more day atrial fibrillation Rate controlled on metoprolol -Holding coumadin, probably will not be able to tolerate a/c moving forward diastolic CHF -lasix on hold HLD statin hypothyroidism -continue synthroid dvt ppx - mechanical devices code status - DNR/DNI
--- NOTE | 2020-04-18 15:15 | MHC.CM.PN ---
OFFBEARER COMPLETED WITH PTS DAUGHTER/HCP, ANGELIKA ([phone]) WHO REPORTS THE PT DID NOT CARE FOR THEA OF , WHERE SHE HAS BEEN SINCE HER 04/14 DC. SHE REPORTS RIGHT NOW THE PT IS SAYING SHE DOES NOT WANT TO LEAVE THE HOSPITAL AND REFUSING SNF CHOICES HOWEVER PTS WAS IN [facility] AND ANGELIKA FEELS IF A BED WERE OFFERED THERE OR [facility] THE PT WOULD BE AGREEABLE WHEN THE TIME COMES FOR DC. REFERRALS MADE. IMM DELIVERED VIA T/C AND COPY LEFT AT BEDSIDE CURRENT DC PLAN IS STR. BLS TRANSPORT NEEDED
--- NOTE | 2020-04-18 15:28 | MHC.CM.PN ---
CM spoke to pts daughter Aniyah who reports the best number to reach her at is [phone], and reports it is ok to leave a message if she does not answer
[2020-04-18] MEDS: Morphine Sulfate Immed Release 15 MG TABLET 7.5 MG PO ×2 (17:53→23:35)
[2020-04-18] MEDS: Atorvastatin Calcium 40 MG TABLET PO (20:35)
[2020-04-18] MEDS: HYDROmorphone HCl 1 MG/ML SYRINGE IVPUSH (20:36)
[2020-04-18] MEDS: ALPRAZolam 0.25 MG TABLET PO (22:06)
[2020-04-19] VITALS (7 sets, daily range): BP systolic 103–133; BP diastolic 55–75; PULSE 77–102; RESP 16–20; TEMP 36.1–36.7; O2SAT 93–97; BMI 30.4
[2020-04-19] MEDS: ondansetron HCL 4 MG/2 ML VIAL IVPUSH (01:26)
[2020-04-19] MEDS: 0.9 % Sodium Chloride 1,000 ML 75 ML IVCONT ×2 (05:40→19:27)
[2020-04-19] MEDS: Levothyroxine Sodium 88 MCG TABLET PO (06:23)
[2020-04-19 07:16] LABS: Basophils Absolute Auto 0.1 X10*3/uL (0.0-0.2); Basophils Percent Auto 0.3 % (0-2); Eosinophils Absolute Auto 0.1 X10*3/uL (0.0-0.4); Eosinophils Percent Auto 0.5 % (0-4); Hematocrit 32.1 % (37-47); Hemoglobin 9.5 g/dl (12.0-16.0); Imm Gran Abs Auto 0.52 X10*3/uL (0.00-0.03); Imm Gran Pct Auto 2.2 % (0.0-0.4); Lymphocytes Absolute Auto 1.6 X10*3/uL (1.2-4.9); Lymphocytes Percent Auto 6.5 % (20-40); MANUAL DIFF FLAG SCAN; Mean Corpuscular HGB Conc 29.6 g/dl (31.0-35.0); Mean Corpuscular Hemoglobin 28.2 pg (27.0-33.0); Mean Corpuscular Volume 95.3 fL (80-98); Mean Platelet Volume 9.9 fL (9.4-12.3); Monocytes Absolute Auto 1.5 X10*3/uL (0.1-1.2); Monocytes Percent Auto 6.2 % (2-11); NRBC Pct Auto 0.1 /100WBC (0.0-0.2); Neutrophils Absolute Auto 20.2 X10*3/uL (2.0-8.3); Neutrophils Percent Auto 84.3 % (45-73); Platelet Count 266 X10*3/uL (160-400); Red Blood Count 3.37 X10*6/uL (4.20-5.50); Red Cell Distribution Width 19.5 % (11.0-16.0); SCAN SMEAR FLAG 1; White Blood Count 23.9 X10*3/uL (4.8-10.8)
[2020-04-19 07:31] LABS: Alanine Aminotransferase 48 U/L (0-31); Albumin Level 2.6 g/dL (3.5-5.0); Alkaline Phosphatase 708 U/L (39-117); Anion Gap 19 (12-20); Aspartate Amino Transferase 109 U/L (5-31); Bilirubin Direct 2.6 mg/dL (0.0-0.5); Bilirubin Total 3.2 mg/dL (0.0-1.0); Blood Urea Nitrogen 23 mg/dL (9-16); Calcium 7.8 mg/dL (8.4-10.2); Carbon Dioxide 17 mmol/L (22-29); Chloride 102 mmol/L (96-108); Creatinine Clr Calc Pharmacy 42.2; Estimated Glomerular Filt Rate 44; Glucose Fasting 81 mg/dL (60-99); Potassium 4.3 mmol/l (3.3-5.1); Sodium 134 mmol/L (135-145); Total Protein 5.9 g/dL (6.5-8.0)
[2020-04-19 07:56] LABS: SLIDE REVIEW VERIFIED
[2020-04-19] MEDS: Metoprolol Succinate ER 100 MG TAB.ER.24H PO (09:01)
--- NOTE | 2020-04-19 10:21 | P.CONGS_ITS ---
History of Present Illness Consult details Narrative: 84F who is well known to me, admitted over the weekend due to rectal bleeding. Her INR was noted to be markedly elevated at that time. She had a tube cholecystostomy done vi IR last Mar 10, 2020 for what appeared to be a markedly and chronically distended gallbladder, with some changes suggested of cholecystitis. She did well but was admitted a week later for obstructed jaundice. Since she had a hx of a BII gastrectomy in the distant past, she was sent to [facility] for ERCP into to the long biliary limb but this could not be done there as well. She therefore had a percutaneous intrahepatic cholecystostomy done to relieve her jaundice. She had an MRI suggestive of a stricture. She has had the tube cholecystostomy since then. She was admitted to the [facility] 2 weeks ago for coagulopathy and anemia after she had mistakenly taken a very high dose of Coumadin. She was discharged to Rehab last week. She currently says she feels 'OK but does say she has not appetite and did not like the food at the Rehab place. Her INR is now corrected. She had brushings done during attempted ERCP showing atypical cells. Review of Systems Constitutional: Constitutional: Reports headache(s) and Denies weakness ENT: Reports dizziness and Reports headache(s) Gastrointestinal: Gastrointestinal: Denies abdominal pain Musculoskeletal: Musculoskeletal: Denies numbness and Denies tingling Neurologic: Reports system reviewed and no additional complaints, except as documented, Reports dizziness, Reports headache(s), Denies numbness, Denies tingling and Denies weakness PMFSH Past Medical History Medical History Abnormal transaminases Adjustment disorder with mixed anxiety and depressed mood Anemia Aspiration pneumonia Atrial fibrillation Biliary stricture Breast cancer Cholecystostomy tube dysfunction Diastolic CHF GI bleed High cholesterol HTN (hypertension) Hypothyroid NSTEMI (non-ST elevated myocardial infarction) Psoriasis Restless leg syndrome Stomach cancer Uterine cancer Functional capacity: independent ambulation Surgical History Surgical History History of cardiac catheterization History of partial gastrectomy S/P breast lumpectomy S/P [id number] (total abdominal hysterectomy and bilateral salpingo-oophorectomy) Social History Social History Household Members: Spouse Housing: Assisted Living Facility Alcohol intake: never Smoking Status: Former smoker Smoked in Last 30 Days: No Second Hand Smoke Exposure: No Use of substances other than those prescribed or required for medical reasons: No Currently Displaying Signs/Symptoms of Drug Intoxication Withdrawal: No Have you been hit, kicked, punched, or otherwise hurt by someone within the past year? If so, by whom?: No Do you feel safe in your current relationship?: Yes Is there a partner from a previous relationship who is making you feel unsafe now?: No Are you made to feel afraid or neglected: No Advance Directives: No Advance Directives Information Provided: Yes Do you have thoughts of harming others: None Do you have a plan to hurt others: No Plan Recently lost weight without trying: No service: No Current occupational status: retired [employer] Allergies Allergy/AdvReac Type Severity Reaction Status Date / Time amlodipine Allergy Unknown Unknown Verified 04/05/20 04:24 lisinopril Allergy Unknown Unknown Verified 04/05/20 04:24 acetaminophen AdvReac Unknown VOMITING Verified 04/05/20 04:24 [From Tylenol-Codeine] Codeine Phosphate Allergy Unknown vomiting Uncoded 04/05/20 04:24 Codeine Sulfate Allergy Unknown Unknown Uncoded 04/05/20 04:24 From Tylenol-Codeine AdvReac Unknown VOMITING Uncoded 04/05/20 04:24 Home Medications Medication Instructions Recorded Confirmed Type atorvastatin 1 tab PO BEDTIME 04/04/20 04/16/20 History calcipotriene 1 applic TOPICAL BID 04/04/20 04/16/20 History furosemide 1 tab PO DAILY 04/04/20 04/16/20 History metoprolol succinate 1 tab PO DAILY 04/04/20 04/16/20 History levothyroxine 88 mcg PO QAM 04/16/20 04/17/20 History Physical Exam Vital Signs: Vital Signs: Vital Signs Temp Pulse Resp BP Pulse Ox 04/19/20 09:01 80 133/75 04/19/20 08:00 97.3 F 80 20 133/75 93 04/19/20 04:00 98.1 F 95 16 121/55 L 93 04/18/20 23:53 96.9 F 93 16 119/56 L 90 L 04/18/20 19:17 97.0 F 80 16 128/59 L 90 L 04/18/20 15:43 96.9 F 84 18 136/69 93 04/18/20 11:31 97.0 F 70 18 122/60 96 Body Mass Index 30.4 Const: General: comfortable and no acute distress Orientation/consciousness: oriented to person, oriented to place and oriented to time Eyes: Sclerae: scleral abnormal (slightly icteric) Cardio: Rhythm: abnormal rhythm GI: Other: soft, no tenderness, no guarding or rebound, IR drain for intrahepatic biliary drainage in place, some bilious output Neuro: General: oriented to person, oriented to place and oriented to time Results Labs Result diagrams: 04/19/20 05:36 04/19/20 05:36 Labs: Abnormal lab results 04/19/20 04/19/20 Range/Units 05:36 05:36 WBC 23.9 H (4.8-10.8) X10*3/uL RBC 3.37 L (4.20-5.50) X10*6/uL Hgb 9.5 L (12.0-16.0) g/dl Hct 32.1 L (37-47) % MCHC 29.6 L (31.0-35.0) g/dl RDW 19.5 H (11.0-16.0) % Immature Gran % (Auto) 2.2 H (0.0-0.4) % Neut % (Auto) 84.3 H (45-73) % Lymph % (Auto) 6.5 L (20-40) % [place] # (Auto) 1.5 H (0.1-1.2) X10*3/uL Abs Immat Gran (auto) 0.52 H (0.00-0.03) X10*3/uL Absolute Neuts (auto) 20.2 H (2.0-8.3) X10*3/uL Absolute Nucleated RBC 0.020 H (0.0-0.012) X10*3/uL Sodium 134 L (135-145) mmol/L Carbon Dioxide 17 L (22-29) mmol/L BUN 23 H (9-16) mg/dL Calcium 7.8 L (8.4-10.2) mg/dL Total Bilirubin 3.2 H (0.0-1.0) mg/dL Direct Bilirubin 2.6 H (0.0-0.5) mg/dL AST 109 H (5-31) U/L ALT 48 H (0-31) U/L Alkaline Phosphatase 708 H (39-117) U/L Total Protein 5.9 L (6.5-8.0) g/dL Albumin 2.6 L (3.5-5.0) g/dL Short CBC 04/19/20 Range/Units 05:36 WBC 23.9 H (4.8-10.8) X10*3/uL Hgb 9.5 L (12.0-16.0) g/dl Hct 32.1 L (37-47) % Plt Count 266 D (160-400) X10*3/uL BMP 04/19/20 05:36 Sodium 134 L Potassium 4.3 Chloride 102 Carbon Dioxide 17 L BUN 23 H Creatinine 1.17 Calcium 7.8 L Liver Function 04/19/20 Range/Units 05:36 Total Bilirubin 3.2 H (0.0-1.0) mg/dL Direct Bilirubin 2.6 H (0.0-0.5) mg/dL AST 109 H (5-31) U/L ALT 48 H (0-31) U/L Alkaline Phosphatase 708 H (39-117) U/L Albumin 2.6 L (3.5-5.0) g/dL All other labs normal. Assessment and Plan (1) Abnormal LFTs: Status: Acute She is well known to me for her elevated LFTs. She had an MRI suggestive of a stricture , and brushings showing atypical cells. She has leukocytosis, but the etiology in uncertain. Her biliary drain seems to be functioning at this time. Her bilirubin level is actually near normal. Her WBC had decreased since yesterday as well. At this time, I would continue her on abx tx for her elevated WBC. Her Coumadin should be kept on hold. I have encouraged her to increase her oral intake. She clinically looks frail but comfortable. I have discussed the above with her . At this time, there is no surgical intervention planned. I will follow along while she is in the hospital.
--- NOTE | 2020-04-19 11:16 | MHC.CM.PN ---
Patient is on IV fluids, LFT's elevated and order placed for surgical consult. Discharge plan is STR via BLS transport. CM will continue to follow for discharge needs.
--- NOTE | 2020-04-19 15:40 | HO.PM.IMPN ---
Subjective Subjective Date of Service: 04/19/20 Interval History: patient seen and examined at bedside patient reported feeling weak Physical Exam Vital Signs: Vital Signs: Vital Signs Temp Pulse Resp BP Pulse Ox 04/19/20 12:00 97.0 F 88 20 114/63 93 04/19/20 09:01 80 133/75 04/19/20 08:00 97.3 F 80 20 133/75 93 04/19/20 04:00 98.1 F 95 16 121/55 L 93 04/18/20 23:53 96.9 F 93 16 119/56 L 90 L 04/18/20 19:17 97.0 F 80 16 128/59 L 90 L 04/18/20 15:43 96.9 F 84 18 136/69 93 Body Mass Index 30.4 General: AO X 3, anxious, juandiced Resp: CTA bilateral CVS: S1,S2,RRR GI: soft, non tender, non distended, tubes in place Neuro: motor grossly intact Psych: anxious Const: General: alert, awake and ill appearing Orientation/consciousness: patient oriented x3 HENMT: Head: Yes normocephalic and Yes atraumatic Eyes: Sclerae: scleral abnormal ( scleral icterus) Pupils: Equal, round and reactive pupils present EOM: EOMs intact bilaterally Resp: Effort & Inspection: normal respiratory effort, no respiratory distress and no use of accessory muscles Cardio: Other: irregularly irregular rhythm Rhythm: regular rhythm GI: Other: biliary drainage catheter with small amount of dark output Inspection: Yes other (cholecystostomy tube is clamped) Palpation (GI): Soft to palpation and nontender Skin: General skin exam: jaundice Neuro: General: patient oriented x3 Cranial nerves: Yes Equal, round and reactive pupils present Objective Data Current Medications Generic Name Dose Route Start Last Admin Trade Name Freq PRN Reason Stop Dose Admin Alprazolam 0.25 mg 04/17/20 10:15 04/18/20 22:06 Alprazolam 0.25 Mg Tablet PO 0.25 mg TID PRN Administration anxiety Atorvastatin Calcium 40 mg 04/17/20 21:00 04/18/20 20:35 Atorvastatin Calcium 40 Mg Tablet PO 40 mg BEDTIME DEE Administration Cefuroxime Axetil 500 mg 04/16/20 22:00 04/19/20 09:00 Cefuroxime Axetil 500 Mg Tablet PO 500 mg Q12H DEE Administration Docusate Sodium 100 mg 04/16/20 21:47 Docusate Sodium 100 Mg Capsule PO DAILY PRN Constipation Doxycycline Hyclate 100 mg 04/16/20 22:00 04/19/20 09:00 Doxycycline Hyclate 100 Mg Tablet PO 100 mg Q12H DEE Administration Sodium Chloride 1,000 mls @ 75 mls/hr 04/16/20 21:47 04/19/20 05:40 Ns IVCONT 75 mls/hr .[id number] DEE Administration Levothyroxine Sodium 88 mcg 04/18/20 06:00 04/19/20 06:23 Levothyroxine Sodium 88 Mcg Tablet PO 88 mcg DAILY@0600 [facility] Administration Metoprolol Succinate 100 mg 04/17/20 09:00 04/19/20 09:01 Metoprolol Succinate Er 100 Mg Tab.Er.24h PO 100 mg DAILY DEE Administration Protocol Morphine Sulfate 7.5 mg 04/16/20 21:47 04/18/20 23:35 Morphine Sulfate Immed Release 15 Mg Tablet PO 7.5 mg Q6H PRN Administration Pain, Severe (Pain Scale 7-10) Ondansetron HCl 4 mg 04/16/20 21:47 04/19/20 01:26 Ondansetron Hcl 4 Mg/2 Ml Vial IVPUSH 4 mg Q8H PRN Administration Nausea and Vomiting Pharmacy Consult 1 each 04/16/20 17:13 Consult Rx Perform Med Rec MISCELLANE ONCE PRN Consult order Sodium Chloride 3 ml 04/17/20 00:00 04/19/20 09:00 0.9 % Sodium Chloride Flush 3 Ml Syringe IVFLUSH Not Given QSHIFT [facility] Labs CBC & Chem 7: 04/19/20 05:36 04/19/20 05:36 Microbiology Microbiology Results: Microbiology 04/16/20 14:20 Blood - Venous Blood Culture - Preliminary No growth after 48 hours. 04/16/20 14:20 Blood - Venous Blood Culture - Preliminary No growth after 48 hours. 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 GI bleed INR was 8 , received vitamin K INR normalized to 1.7 continues to have dark stool hgb stable 9.5, now 9.7 GI following Elevated LFTs chronic due to recent cholecystitis/biliary obstruction, although increase in Alk phos results from brushings from common hepatic duct show atypical cells present oncology appreciated surgery consulted Dr. Rae recommended drains are working well no surgical intervention needed at this point monitor LFTs closely resent respiratory infection continue ceftin, doxy 1 more day atrial fibrillation Rate controlled on metoprolol -Holding coumadin, probably will not be able to tolerate a/c moving forward diastolic CHF -lasix on hold HLD statin hypothyroidism -continue synthroid dvt ppx - mechanical devices code status - DNR/DNI
[2020-04-19] MEDS: Atorvastatin Calcium 40 MG TABLET PO (21:43)
[2020-04-19] MEDS: 0.9 % Sodium Chloride Flush 3 ML SYRINGE IVFLUSH (23:50)
--- NOTE | 2020-04-20 | CT_ITS ---
EXAMINATION: CT ABDOMEN AND PELVIS WITHOUT CONTRAST CLINICAL INFORMATION: 84-year-old female patient with abdominal pain. Per chart: Percutaneous cholecystostomy tube placement on 03/11/2020. Diagnosis of acute calculus cholecystitis on 03/10/2020. Partial gastrectomy for gastric cancer. Hysterectomy for uterine cancer. COMPARISON: CT of the abdomen and pelvis done only 4 days ago. TECHNIQUE: This exam is limited by the lack of IV contrast. Multidetector volumetric imaging was performed from the superior aspect of the liver through the pubic symphysis. Sagittal and coronal reformatted images were obtained on the technologist's workstation. This CT examination was performed using dose optimization techniques as appropriate, variously including the following: *Automated exposure control *Adjustment of mA and/or kV according to patient size (this includes techniques or standardized protocols for targeted exams where dose is matched to indication/reason for exam; i.e. extremities or head) *Use of iterative reconstruction technique DLP: 729 mGy-cm FINDINGS: MANAGER SOUND: The cholecystostomy tube and the percutaneous percutaneous transhepatic biliary stent are in identical positions to that seen 4 days ago. There is no evidence of intestinal obstruction. LUNG BASES: The bilateral pleural effusions have increased in size. This has resulted in some compression atelectasis of the lower lobes. The heart remains enlarged. LIVER, GALLBLADDER, AND BILIARY TREE: There is persistent mild dilatation of the intrahepatic biliary ducts. The pneumobilia is now absent. The gallbladder remains abnormal with numerous nonopaque stones and abnormal wall thickening. Perihepatic fluid persists. Small amounts of ascites are present in the abdomen and pelvis. The volume of ascites has increased since the last study. PANCREAS: Atrophic. SPLEEN: Unremarkable. Perisplenic fluid is seen as before. ADRENAL GLANDS: Unremarkable. KIDNEYS AND URETERS: The kidneys are normal in size, shape, and attenuation. No hydronephrosis, hydroureter, or calculi seen. No perinephric stranding. Residual faint contrast is seen within the collecting systems of both kidneys more pronounced on the left than right. Dilute contrast is present in the urinary bladder which is nearly empty. BLADDER: Nearly empty. GASTROINTESTINAL TRACT: No interval change. Presacral edema. ABDOMINAL WALL: Increasing anasarca. LYMPH NODES: Extensive retroperitoneal lymphadenopathy has not changed. Numerous retrocrural lymph nodes are also present as well as lymph nodes in the root of the mesentery. VASCULAR: Calcific plaques are seen throughout the abdominal aorta and branch vessels. PELVIC VISCERA: Uterus is been removed. OSSEOUS STRUCTURES: No acute. IMPRESSION: 1. Bilateral pleural effusions have increased in volume. Anasarca. 2. The volume of ascites has increased in 4 days. 3. Cholecystostomy tube and biliary stent remain in place. 4. Abnormal gallbladder with stones and signs of inflammation. 5. Extensive lymphadenopathy. A neoplastic process must be considered.
[2020-04-20 03:23] VITALS: BP 107/62; PULSE 95; RESP 18; TEMP 37.1; O2SAT 92
[2020-04-20] MEDS: Levothyroxine Sodium 88 MCG TABLET PO (04:03)
[2020-04-20] MEDS: Morphine Sulfate Immed Release 15 MG TABLET 7.5 MG PO (06:49)
[2020-04-20 07:31] VITALS: BP 133/78; PULSE 110; RESP 20; TEMP 36.4; O2SAT 92
[2020-04-20] MEDS: 0.9 % Sodium Chloride Flush 3 ML SYRINGE IVFLUSH ×3 (08:59→22:14)
[2020-04-20 09:00] VITALS: BP 133/78; PULSE 110
[2020-04-20] MEDS: Metoprolol Succinate ER 100 MG TAB.ER.24H PO (09:00)
[2020-04-20 12:00] VITALS: BP 130/86; PULSE 87; RESP 20; TEMP 36.7; O2SAT 90
[2020-04-20] MEDS: Morphine Sulfate 2 MG/ML CARTRIDGE IVPUSH (13:19)
[2020-04-20] MEDS: ondansetron HCL 4 MG/2 ML VIAL IVPUSH (13:26)
--- NOTE | 2020-04-20 15:21 | PM.PNGS ---
Subjective Subjective Interval history: I was asked by hospitalist to evaluate pt - re: nausea, abdominal again pt says she is nauseous, has no appetite, depressed Physical Exam Vital Signs: Vital Signs: Vital Signs Temp Pulse Resp BP Pulse Ox 04/20/20 12:00 98.0 F 87 20 130/86 90 L 04/20/20 09:00 110 H 133/78 04/20/20 07:31 97.5 F 110 H 20 133/78 92 04/20/20 03:23 98.7 F 95 18 107/62 92 04/19/20 23:30 97.4 F 91 18 107/68 93 04/19/20 19:45 97.4 F 102 H 18 103/58 L 96 04/19/20 15:59 98.1 F 77 18 117/65 97 Body Mass Index 30.4 Chemistry 04/18/20 04/19/20 05:47 05:36 Sodium 132 L 134 L Potassium 4.4 4.3 Carbon Dioxide 17 L 17 L BUN 22 H 23 H Creatinine 0.99 1.17 Calcium 8.1 L 7.8 L Hematology 04/18/20 04/19/20 05:47 05:36 WBC 22.6 H 23.9 H Hgb 9.7 L 9.5 L Plt Count 356 266 D Const: Other: appears depressed, anxious GI: Other: abd osdt, mild vague tenderness upper abd, intrahepatic biliary drain in place Progress Note: A&P Assessment and plan (1) Nausea & vomiting: Status: Acute Assessment and Plan: has nausea and vomitting exam benign will check CT ?ileus - may need NGT await CT findings dw Hospitalist continue gabino Vann to give phenergan Fall Risk Details Current Medications: Current Medications Generic Name Dose Route Start Last Admin Trade Name Freq PRN Reason Stop Dose Admin Alprazolam 0.25 mg 04/17/20 10:15 04/18/20 22:06 Alprazolam 0.25 Mg Tablet PO 0.25 mg TID PRN Administration anxiety Atorvastatin Calcium 40 mg 04/17/20 21:00 04/19/20 21:43 Atorvastatin Calcium 40 Mg Tablet PO 40 mg BEDTIME DEE Administration Docusate Sodium 100 mg 04/16/20 21:47 Docusate Sodium 100 Mg Capsule PO DAILY PRN Constipation Doxycycline Hyclate 100 mg 04/16/20 22:00 04/20/20 09:00 Doxycycline Hyclate 100 Mg Tablet PO 100 mg Q12H DEE Administration Piperacillin Sod/Tazobactam 50 mls @ 100 mls/hr 04/20/20 15:00 Sod 3.375 gm/ Sodium Chloride IV Q6H DEE Levothyroxine Sodium 88 mcg 04/18/20 06:00 04/20/20 04:03 Levothyroxine Sodium 88 Mcg Tablet PO 88 mcg DAILY@0600 DEE Administration Metoprolol Succinate 100 mg 04/17/20 09:00 04/20/20 09:00 Metoprolol Succinate Er 100 Mg Tab.Er.24h PO 100 mg DAILY DEE Administration Protocol Morphine Sulfate 7.5 mg 04/16/20 21:47 04/20/20 06:49 Morphine Sulfate Immed Release 15 Mg Tablet PO 7.5 mg Q6H PRN Administration Pain, Severe (Pain Scale 7-10) Ondansetron HCl 4 mg 04/16/20 21:47 04/20/20 13:26 Ondansetron Hcl 4 Mg/2 Ml Vial IVPUSH 4 mg Q8H PRN Administration Nausea and Vomiting Ondansetron HCl 4 mg 04/20/20 11:55 Ondansetron Hcl 4 Mg/2 Ml Vial IVPUSH Q8H PRN Nausea and Vomiting Pharmacy Consult 1 each 04/16/20 17:13 Consult Rx Perform Med Rec MISCELLANE ONCE PRN Consult order Sodium Chloride 3 ml 04/17/20 00:00 04/20/20 08:59 0.9 % Sodium Chloride Flush 3 Ml Syringe IVFLUSH 3 ml QSHIFT DEE Administration Time Spent With Patient Time: Total time spent is greater than 50% in coordination of care (as documented) at patient's floor/unit and/or counseling patient: Time with patient: 15 - 24 minutes
--- NOTE | 2020-04-20 15:29 | P.PNIM_ITS ---
Subjective Subjective Date of Service: 04/19/20 Interval History: patient seen and examined at bedside patient reported abdominal pain and vomiting patient initially decided for no further intervention and for comfort care, but later changed her mind , and wants to continue management Physical Exam Vital Signs: Vital Signs: Vital Signs Temp Pulse Resp BP Pulse Ox 04/20/20 12:00 98.0 F 87 20 130/86 90 L 04/20/20 09:00 110 H 133/78 04/20/20 07:31 97.5 F 110 H 20 133/78 92 04/20/20 03:23 98.7 F 95 18 107/62 92 04/19/20 23:30 97.4 F 91 18 107/68 93 04/19/20 19:45 97.4 F 102 H 18 103/58 L 96 04/19/20 15:59 98.1 F 77 18 117/65 97 Body Mass Index 30.4 General: AO X 3, anxious, juandiced Resp: CTA bilateral CVS: S1,S2,RRR GI: soft, non tender, non distended, tubes in place Neuro: motor grossly intact Psych: anxious Const: Orientation/consciousness: patient oriented x3 HENMT: Head: Yes normocephalic and Yes atraumatic Eyes: Sclerae: scleral abnormal ( scleral icterus) Pupils: Equal, round and reactive pupils present EOM: EOMs intact bilaterally Resp: Effort & Inspection: normal respiratory effort, no respiratory distress and no use of accessory muscles Cardio: Other: irregularly irregular rhythm Rhythm: regular rhythm GI: Inspection: Yes distended Palpation (GI): Tenderness to palpation present (GI) in the RUQ Skin: General skin exam: jaundice Neuro: General: patient oriented x3 Cranial nerves: Yes Equal, round and r eactive pupils present Objective Data Current Medications Generic Name Dose Route Start Last Admin Trade Name Freq PRN Reason Stop Dose Admin Alprazolam 0.25 mg 04/17/20 10:15 04/18/20 22:06 Alprazolam 0.25 Mg Tablet PO 0.25 mg TID PRN Administration anxiety Atorvastatin Calcium 40 mg 04/17/20 21:00 04/19/20 21:43 Atorvastatin Calcium 40 Mg Tablet PO 40 mg BEDTIME DEE Administration Docusate Sodium 100 mg 04/16/20 21:47 Docusate Sodium 100 Mg Capsule PO DAILY PRN Constipation Doxycycline Hyclate 100 mg 10/16/20 22:00 04/20/20 09:00 Doxycycline Hyclate 100 Mg Tablet PO 100 mg Q12H [facility] Administration Piperacillin Sod/Tazobactam 50 mls @ 100 mls/hr 04/20/20 15:00 Sod 3.375 gm/ Sodium Chloride IV Q6H [facility] Levothyroxine Sodium 88 mcg 04/18/20 06:00 04/20/20 04:03 Levothyroxine Sodium 88 Mcg Tablet PO 88 mcg DAILY@0600 DEE Administration Metoprolol Succinate 100 mg 04/17/20 09:00 04/20/20 09:00 Metoprolol Succinate Er 100 Mg Tab.Er.24h PO 100 mg DAILY [facility] Administration Protocol Morphine Sulfate 7.5 mg 04/16/20 21:47 04/20/20 06:49 Morphine Sulfate Immed Release 15 Mg Tablet PO 7.5 mg Q6H PRN Administration Pain, Severe (Pain Scale 7-10) Ondansetron HCl 4 mg 04/16/20 21:47 04/20/20 13:26 Ondansetron Hcl 4 Mg/2 Ml Vial IVPUSH 4 mg Q8H PRN Administration Nausea and Vomiting Ondansetron HCl 4 mg 04/20/20 11:55 Ondansetron Hcl 4 Mg/2 Ml Vial IVPUSH Q8H PRN Nausea and Vomiting Pharmacy Consult 1 each 04/16/20 17:13 Consult Rx Perform Med Rec MISCELLANE ONCE PRN Consult order Sodium Chloride 3 ml 04/17/20 00:00 04/20/20 08:59 0.9 % Sodium Chloride Flush 3 Ml Syringe IVFLUSH 3 ml QSHIFT [facility] Administration Labs CBC & Chem 7: 04/20/20 17:19 04/20/20 17:21 Microbiology Microbiology Results: Microbiology 04/16/20 14:20 Blood - Venous Blood Culture - Preliminary No growth after 48 hours. 04/16/20 14:20 Blood - Venous Blood Culture - Preliminary No growth after 48 hours. 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 but later changed her mind and wants to continue current management and further workup CT abdomen ordered will repeat LFTs surgery and GI follow-up requested antibiotics changed to Zosyn given concern of cholangitis and worsening abdominal pain will keep her npo given worsening pain and start i/v fluids given poor po intake resent respiratory infection continue ceftin, doxy 1 more day atrial fibrillation Rate controlled on metoprolol -Holding coumadin, probably will not be able to tolerate a/c moving forward diastolic CHF -lasix on hold HLD statin hypothyroidism -continue synthroid dvt ppx - mechanical devices code status - DNR/DNI
[2020-04-20] MEDS: Piperacillin Sodium/Tazobactam 3.375 GM in 0.9 % Sodium Chloride 50 ML IV (15:43)
--- NOTE | 2020-04-20 17:14 | PM.EVENT ---
Event Note Event Note: pt sent for CT - reviewed with Dr. Gonzalez - very large mesenteric LN, persistent changes aroun GB and subhepatic area, with free fluid overall clinical picture with biliary stricture, atypical cells on brushings in [facility] suspicious for neoplastic process explained above to Aniyah her daughter - pt has been refusing a most interventions as well; Aniyah is interested on keeping pt as comfortable as possible for now, without invasive interventions Aniyah agrees to PICC line if pt agrees for IV access, hydration pt will benefit from Zofran plus Phenergan for nausea will rediscuss with Aniyah tomorrow keep NPO for now except meds
[2020-04-20 17:49] LABS: Basophils Absolute Auto 0.1 X10*3/uL (0.0-0.2); Basophils Percent Auto 0.3 % (0-2); Hematocrit 29.9 % (37-47); Hemoglobin 9.5 g/dl (12.0-16.0); Imm Gran Abs Auto 0.55 X10*3/uL (0.00-0.03); Imm Gran Pct Auto 1.8 % (0.0-0.4); Lymphocytes Absolute Auto 1.7 X10*3/uL (1.2-4.9); Lymphocytes Percent Auto 5.4 % (20-40); MANUAL DIFF FLAG SCAN; Mean Corpuscular HGB Conc 31.8 g/dl (31.0-35.0); Mean Corpuscular Hemoglobin 28.8 pg (27.0-33.0); Mean Corpuscular Volume 90.6 fL (80-98); Mean Platelet Volume 10.7 fL (9.4-12.3); Monocytes Absolute Auto 1.6 X10*3/uL (0.1-1.2); Monocytes Percent Auto 5.2 % (2-11); NRBC Pct Auto 0.2 /100WBC (0.0-0.2); Neutrophils Absolute Auto 27.4 X10*3/uL (2.0-8.3); Neutrophils Percent Auto 87.3 % (45-73); Platelet Count 235 X10*3/uL (160-400); Red Cell Distribution Width 19.9 % (11.0-16.0); SCAN SMEAR FLAG 1
[2020-04-20 17:51] LABS: White Blood Count 31.4 X10*3/uL (4.8-10.8)
[2020-04-20 17:56] LABS: Alanine Aminotransferase 47 U/L (0-31); Albumin Level 2.5 g/dL (3.5-5.0); Alkaline Phosphatase 738 U/L (39-117); Anion Gap 19 (12-20); Aspartate Amino Transferase 97 U/L (5-31); Bilirubin Total 3.2 mg/dL (0.0-1.0); Blood Urea Nitrogen 32 mg/dL (9-16); Carbon Dioxide 13 mmol/L (22-29); Chloride 104 mmol/L (96-108); Creatinine Clr Calc Pharmacy 26.9; Estimated Glomerular Filt Rate 26; Glucose Random 133 mg/dL (60-115); Sodium 131 mmol/L (135-145)
[2020-04-20 18:04] LABS: SLIDE REVIEW VERIFIED
--- NOTE | 2020-04-20 19:33 | PM.GIPN ---
Subjective Subjective Date of Service: 04/20/20 Interval History: c/o lower abdo pain with emesis, no fever, bile in bag, no pus noted passing wind, no stool, no rectal bleeding Physical Exam Vital Signs: Vital Signs: Vital Signs Temp Pulse Resp BP Pulse Ox 04/20/20 12:00 98.0 F 87 20 130/86 90 L 04/20/20 09:00 110 H 133/78 04/20/20 07:31 97.5 F 110 H 20 133/78 92 04/20/20 03:23 98.7 F 95 18 107/62 92 04/19/20 23:30 97.4 F 91 18 107/68 93 04/19/20 19:45 97.4 F 102 H 18 103/58 L 96 Body Mass Index 30.4 Const: General: ill appearing Orientation/consciousness: patient oriented x3 Eyes: Sclerae: scleral abnormal bilateral (icterus) Resp: Effort & Inspection: normal respiratory effort Cardio: Bruits: no abdominal aortic bruits GI: Inspection: Yes normal to inspection Palpation (GI): No Abdominal aortic bruit present and Tenderness to palpation present (GI) suprapubicly Auscultation: normal bowel sounds Neuro: General: patient oriented x3 Objective Data Labs CBC & Chem 7: 04/20/20 17:19 04/20/20 17:21 Labs: Laboratory Results - last 24 hr 04/20/20 04/20/20 17:19 17:21 WBC 31.4 H* RBC 3.30 L Hgb 9.5 L Hct 29.9 L MCV 90.6 MCH 28.8 MCHC 31.8 RDW 19.9 H Plt Count 235 MPV 10.7 Immature Gran % (Auto) 1.8 H Neut % (Auto) 87.3 H Lymph % (Auto) 5.4 L [place] % (Auto) 5.2 Eos % (Auto) 0.0 Baso % (Auto) 0.3 Lymph # (Auto) 1.7 [place] # (Auto) 1.6 H Eos # (Auto) 0.0 Baso # (Auto) 0.1 Abs Immat Gran (auto) 0.55 H Absolute Neuts (auto) 27.4 H Absolute Nucleated RBC 0.070 H Nucleated RBC % (auto) 0.2 Smear Tech's Comments VERIFIED Sodium 131 L Potassium 5.0 Chloride 104 Carbon Dioxide 13 L Anion Gap 19 BUN 32 H Creatinine 1.83 H Estim Creat Clear Calc 26.9 Estimated GFR 26 Random Glucose 133 H D Calcium 8.0 L Total Bilirubin 3.2 H AST 97 H ALT 47 H Alkaline Phosphatase 738 H Total Protein 6.0 L Albumin 2.5 L Microbiology Microbiology Results: Microbiology 04/16/20 14:20 Blood - Venous Blood Culture - Preliminary No growth after 48 hours. 04/16/20 14:20 Blood - Venous Blood Culture - Preliminary No growth after 48 hours. Progress Note: A&P Assessment and plan (1) Nausea & vomiting: Status: Acute Assessment and Plan: 1/ Nausea and vomiting, in setting of rising WCC, abdo not distended doesn't appear to have obstruction, may have abscess or infected fluid collection, PLAN: 1/ agree with expanding to IV ABx using zosyn 2/ await CT scan with IV contrast 3/ may need cholangiogram thru PTC and cholecystostomy tube to make sure no obstruction at GB neck jessica with the cholecystostomy tube being clamped, would also check bone isoenzyme on the alk phos given its rising, might nee dot r/o spinal abscess or mets Fall Risk Details Current Medications: Current Medications Generic Name Dose Route Start Last Admin Trade Name Freq PRN Reason Stop Dose Admin Alprazolam 0.25 mg 04/17/20 10:15 04/18/20 22:06 Alprazolam 0.25 Mg Tablet PO 0.25 mg TID PRN Administration anxiety Atorvastatin Calcium 40 mg 04/17/20 21:00 04/19/20 21:43 Atorvastatin Calcium 40 Mg Tablet PO 40 mg BEDTIME DEE Administration Docusate Sodium 100 mg 04/16/20 21:47 Docusate Sodium 100 Mg Capsule PO DAILY PRN Constipation Doxycycline Hyclate 100 mg 04/16/20 22:00 04/20/20 09:00 Doxycycline Hyclate 100 Mg Tablet PO 100 mg Q12H DEE Administration Piperacillin Sod/Tazobactam 50 mls @ 100 mls/hr 04/20/20 15:00 04/20/20 15:43 Sod 3.375 gm/ Sodium Chloride IV 0 mls/hr Q6H DEE Infusion Dextrose/Sodium Chloride 1,000 mls @ 80 mls/hr 04/20/20 15:45 04/20/20 18:45 D5ns IVCONT Not Given .[id number] DEE Levothyroxine Sodium 88 mcg 04/18/20 06:00 04/20/20 04:03 Levothyroxine Sodium 88 Mcg Tablet PO 88 mcg DAILY@0600 DEE Administration Metoprolol Succinate 100 mg 04/17/20 09:00 04/20/20 09:00 Metoprolol Succinate Er 100 Mg Tab.Er.24h PO 100 mg DAILY DEE Administration Protocol Morphine Sulfate 7.5 mg 04/16/20 21:47 04/20/20 06:49 Morphine Sulfate Immed Release 15 Mg Tablet PO 7.5 mg Q6H PRN Administration Pain, Severe (Pain Scale 7-10) Ondansetron HCl 4 mg 04/16/20 21:47 04/20/20 13:26 Ondansetron Hcl 4 Mg/2 Ml Vial IVPUSH 4 mg Q8H PRN Administration Nausea and Vomiting Ondansetron HCl 4 mg 04/20/20 11:55 Ondansetron Hcl 4 Mg/2 Ml Vial IVPUSH Q8H PRN Nausea and Vomiting Pharmacy Consult 1 each 04/16/20 17:13 Consult Rx Perform Med Rec MISCELLANE ONCE PRN Consult order Sodium Chloride 3 ml 04/17/20 00:00 04/20/20 15:44 0.9 % Sodium Chloride Flush 3 Ml Syringe IVFLUSH 3 ml QSHIFT DEE Administration Time Spent With Patient Time: Total time spent is greater than 50% in coordination of care (as documented) at patient's floor/unit and/or counseling patient: Time with patient: less than 15 minutes
[2020-04-20 19:54] VITALS: BP 135/85; PULSE 84; RESP 20; TEMP 36.7; O2SAT 92
--- NOTE | 2020-04-20 20:38 | P.PNHO_ITS ---
Medical Summary - Medical Summary Chief complaint: biliary stricture Interval History Interval history: She is considering her options for diagnosis and treatment. Review of Systems - ENT Reports hearing loss - Cardiovascular Reports shortness of breath - Respiratory Reports other - Gastrointestinal Reports abdominal pain - Genitourinary Reports absent period - Musculoskeletal Reports loss of height - Integumentary/Breasts Skin/Breast: Reports dry skin - Neurologic Reports system reviewed and no additional complaints, except as documented, Reports confusion, Reports headache(s), Denies abnormal speech, Denies numbness, Denies tingling, Denies weakness - Endocrine Reports increased urination [facility] Medical History: Medical History (Last Updated 04/20/20 @ 15:24 by Ray Rae MD) Acute blood loss anemia Adjustment disorder with mixed anxiety and depressed mood Anemia Aspiration pneumonia Atrial fibrillation Biliary stricture Breast cancer Cholecystostomy tube dysfunction Diastolic CHF GI bleed High cholesterol History of breast cancer History of gastric cancer HTN (hypertension) Hypothyroid Nausea & vomiting NSTEMI (non-ST elevated myocardial infarction) Psoriasis Restless leg syndrome Transaminitis Uterine cancer Functional capacity: independent ambulation Patient : No Family History: Family History (Last Updated 04/19/20 @ 11:30 by ESTEPHANIA Fine) Father Hypertension Cancer Mother Hypertension Sister Cancer Surgical History: Surgical History (Last Updated 04/19/20 @ 11:27 by ESTEPHANIA Fine) History of cardiac catheterization History of partial gastrectomy History of toe surgery S/P breast lumpectomy S/P TALYA-BSO (total abdominal hysterectomy and bilateral salpingo-oophorectomy) Smoking status: Former smoker Substance use type: does not use Oncology Screenings - Immunizations Pneumoccocal Immunization Status: Up To Date - ECOG Performance Status ECOG Performance Status: 2 - G8 Geriatric Assessment Change in food intake over past 3 months: Severe decrease in food intake Weight loss during the last 3 months: Weight loss > 3 kg Mobility: Bed or chair bound Neuropsychological problems: No psychological problems Body Mass Index: 19 to 21 Patient takes > 3 prescription drugs per day: Yes Patient's assessment of health status compared to others: Not as good Patient age: 80 to 85 G8 Score: 4 G8 Risk Level: High risk for early functional decline and reduced survival. - [place] VTE Risk Cancer Type: Other Pre-chemo platelet count >= 350,000/uL: Yes Hemoglobin level <10 g/dL or using RBC growth factors: No Pre-chemo leukocyte count > 11,000/uL: Yes BMI >=35: No VTE Risk Score:: 2 [place] VTE Risk: Intermediate VTE Risk Home Medications and Allergies Current Medications: Current Medications Generic Name Dose Route Start Last Admin Trade Name Freq PRN Reason Stop Dose Admin Alprazolam 0.25 mg 04/17/20 10:15 04/18/20 22:06 Alprazolam 0.25 Mg Tablet PO 0.25 mg TID PRN Administration anxiety Atorvastatin Calcium 40 mg 04/17/20 21:00 04/19/20 21:43 Atorvastatin Calcium 40 Mg Tablet PO 40 mg BEDTIME DEE Administration Docusate Sodium 100 mg 04/16/20 21:47 Docusate Sodium 100 Mg Capsule PO DAILY PRN Constipation Doxycycline Hyclate 100 mg 04/16/20 22:00 04/20/20 09:00 Doxycycline Hyclate 100 Mg Tablet PO 100 mg Q12H DEE Administration Piperacillin Sod/Tazobactam 50 mls @ 100 mls/hr 04/20/20 15:00 04/20/20 15:43 Sod 3.375 gm/ Sodium Chloride IV 0 mls/hr Q6H DEE Infusion Dextrose/Sodium Chloride 1,000 mls @ 80 mls/hr 04/20/20 15:45 04/20/20 18:45 D5ns IVCONT Not Given .[id number] DEE Levothyroxine Sodium 88 mcg 04/18/20 06:00 04/20/20 04:03 Levothyroxine Sodium 88 Mcg Tablet PO 88 mcg DAILY@0600 DEE Administration Metoprolol Succinate 100 mg 04/17/20 09:00 04/20/20 09:00 Metoprolol Succinate Er 100 Mg Tab.Er.24h PO 100 mg DAILY DEE Administration Protocol Morphine Sulfate 7.5 mg 04/16/20 21:47 04/20/20 06:49 Morphine Sulfate Immed Release 15 Mg Tablet PO 7.5 mg Q6H PRN Administration Pain, Severe (Pain Scale 7-10) Ondansetron HCl 4 mg 04/16/20 21:47 04/20/20 13:26 Ondansetron Hcl 4 Mg/2 Ml Vial IVPUSH 4 mg Q8H PRN Administration Nausea and Vomiting Ondansetron HCl 4 mg 04/20/20 11:55 Ondansetron Hcl 4 Mg/2 Ml Vial IVPUSH Q8H PRN Nausea and Vomiting Pharmacy Consult 1 each 04/16/20 17:13 Consult Rx Perform Med Rec MISCELLANE ONCE PRN Consult order Sodium Chloride 3 ml 04/17/20 00:00 04/20/20 15:44 0.9 % Sodium Chloride Flush 3 Ml Syringe IVFLUSH 3 ml QSHIFT [facility] Administration Home Medications Medication Instructions Recorded Confirmed Type atorvastatin 1 tab PO BEDTIME 04/04/20 04/16/20 History calcipotriene 1 applic TOPICAL BID 04/04/20 04/16/20 History furosemide 1 tab PO DAILY 04/04/20 04/16/20 History metoprolol succinate 1 tab PO DAILY 04/04/20 04/16/20 History levothyroxine 88 mcg PO QAM 04/16/20 04/17/20 History Allergies Allergy/AdvReac Type Severity Reaction Status Date / Time amlodipine Allergy Unknown Unknown Verified 04/19/20 11:24 lisinopril Allergy Unknown Unknown Verified 04/19/20 11:24 acetaminophen AdvReac Unknown VOMITING Verified 04/19/20 11:24 [From Tylenol-Codeine] Exam Vital signs: Vital Signs Temp 98.0 F 04/20/20 19:54 Pulse 84 04/20/20 19:54 Resp 20 04/20/20 19:54 BP 135/85 04/20/20 19:54 Pulse Ox 92 04/20/20 19:54 Intake & Output 04/20/20 04/20/20 04/21/20 06:59 18:59 06:59 Intake Total 1120 / 1240 1060 / 1060 Output Total 350 / 350 100 / 100 Balance 770 / 890 960 / 960 Urine Output (Average ml/kg/hr) 0.32 0.09 Intake: Intake, Oral Amount 120 / 240 60 / 60 Intake, IV Amount 1000 / 1000 1000 / 1000 Piperacillin Sodium/Tazobactam 0 / 0 3.375 gm In 0.9 % Sodium Chloride 50 ml @ 100 mls/hr IV Q6H [facility] Rx#:[id number] 0.9 % Sodium Chloride 1,000 ml 1000 / 1000 1000 / 1000 @ 75 mls/hr IVCONT .[id number] [facility] Rx#:[id number] Output: Output, Urine Amount 350 / 350 100 / 100 Other: Urine Bedside Commode Urine Color Yellow Weight 91 kg Body Mass Index 30.4 - Constitutional Present: no acute distress - Routine HEENT Exam Head: Present: atraumatic Eye: Present: EOMI ENT: Present: mucous membranes moist - Routine Neck Exam Present: full ROM - Routine Chest/Breast/Axilla Exam Breast: Present: Normal Exam - Routine Respiratory Exam Present: decreased breath sounds - Routine Abdominal Exam Present: diminished bowel sounds, distended, firm - Routine Exam External: Present: normal external exam - Routine Skin Exam Present: intact - Routine Neurological Exam Present: alert, oriented X3 - Routine Psychiatric Exam Present: normal affect Data - Labs CBC & Chem 7: 04/20/20 17:19 04/20/20 17:21 Labs: Laboratory Results - last 24 hr 04/20/20 04/20/20 17:19 17:21 WBC 31.4 H* RBC 3.30 L Hgb 9.5 L Hct 29.9 L MCV 90.6 MCH 28.8 MCHC 31.8 RDW 19.9 H Plt Count 235 MPV 10.7 Immature Gran % (Auto) 1.8 H Neut % (Auto) 87.3 H Lymph % (Auto) 5.4 L [place] % (Auto) 5.2 Eos % (Auto) 0.0 Baso % (Auto) 0.3 Lymph # (Auto) 1.7 [place] # (Auto) 1.6 H Eos # (Auto) 0.0 Baso # (Auto) 0.1 Abs Immat Gran (auto) 0.55 H Absolute Neuts (auto) 27.4 H Absolute Nucleated RBC 0.070 H Nucleated RBC % (auto) 0.2 Smear Tech's Comments VERIFIED Sodium 131 L Potassium 5.0 Chloride 104 Carbon Dioxide 13 L Anion Gap 19 BUN 32 H Creatinine 1.83 H Estim Creat Clear Calc 26.9 Estimated GFR 26 Random Glucose 133 H D Calcium 8.0 L Total Bilirubin 3.2 H AST 97 H ALT 47 H Alkaline Phosphatase 738 H Total Protein 6.0 L Albumin 2.5 L Progress Note: A/P (1) Abnormal LFTs Status: Acute - Time Spent With Patient Total time spent is greater than 50% in coordination of care (as documented) at patient's floor/unit and/or counseling patient: 15 - 24 minutes
[2020-04-20] MEDS: Atorvastatin Calcium 40 MG TABLET PO (22:14)
[2020-04-20 23:47] VITALS: BP 114/73; PULSE 110; RESP 18; TEMP 36.4
--- NOTE | 2020-04-21 | US_ITS ---
PROCEDURE: PICC LINE PLACEMENT UNDER SONOGRAPHIC AND FLUOROSCOPIC GUIDANCE CLINICAL INFORMATION: Hospitalized patient with poor venous access. ACCESS: Left basilic vein. TECHNIQUE/FINDINGS: Informed consent was obtained from the patient prior to the procedure. During this process, the procedure and potential alternatives was explained, along with the intended outcome and benefits. The risks of the procedure, as well as the risk of not doing the procedure, were discussed. The patient was given the opportunity to ask questions regarding the procedure and appeared competent to make medical decisions. A signed consent form which documents this discussion was placed in the medical record. The patient was brought to the conventional radiology suite and a timeout procedure was performed. A sonographic survey was performed for localization of venous access. The left basilic vein was confirmed to be patent. Image was sent to PACS for documentation. The left arm was sterilely prepped and draped. Maximum sterile barrier technique was maintained throughout the procedure. ?All elements of maximal sterile barrier technique followed including use of cap, mask, sterile gown, sterile gloves, a sterile full body drape and hand hygiene. Also followed skin preparation with 2% chlorhexidine for cutaneous antisepsis, and sterile ultrasound preparation with sterile gel and probe cover when applicable.? Following administration of local anesthesia using 1% lidocaine, a puncture was performed of the left basilic vein above the elbow joint under direct sonographic visualization. A [place] mandrel wire was advanced into the needle to the superior vena cava. A 5 [place] peel-away sheath was then in inserted using standard Seldinger technique. A 5 [place] dual lumen PASV PICC was cut to 45 cm. The catheter was advanced under fluoroscopic guidance until its tip was at the SVC-right atrial junction. Upon trying to remove the wire through the catheter the wire was binding on the catheter and could not be removed. A second wire was then placed in the other port of the PICC line to maintain access and the original PICC line and wire were removed. A new peel-away sheath was placed and new 45 cm PICC line placed with tip at the caval atrial junction. Both ports could be easily aspirated. The lumens of the PICC were flushed with saline. A Biopatch was placed around around the catheter at the entrance site. The catheter was secured with a StatLock. A sterile dressing was applied. The patient tolerated the procedure well. There was no evidence of complications. FLUOROSCOPY TIME: 2.6 minutes fluoroscopy. One image.. IMPRESSION: Successful placement of a 45 cm length left arm PASV PICC line under a combination of sonographic and fluoroscopic guidance. No evidence of complications.
[2020-04-21 04:00] VITALS: BP 148/60; PULSE 100; RESP 20; TEMP 35.9; O2SAT 97
[2020-04-21] MEDS: ALPRAZolam 0.25 MG TABLET PO (04:47)
[2020-04-21] MEDS: Morphine Sulfate Immed Release 15 MG TABLET 7.5 MG PO (04:47)
--- NOTE | 2020-04-21 05:43 | PC.NURSE ---
PT C/O 02/08 ABD PAIN AND THEN STARTED WITH NAUSEA AND VOMITING SHORTLY AFTER. PT HAS NO IV ACCESS AND IS GOING FOR LINE PLACEMENT TODAY. PT GIVEN PO MORPHINE AND XANAX AND WAS UNABLE TO HOLD THEM DOWN. NOTIFIED. AWAITING NEW ORDERS. CALL [facility] IN REACH. BED ALARM ON.
--- NOTE | 2020-04-21 05:45 | PC.NURSE ---
PT OOB TO COMMODE WITH ASSIST. PT HAD SMALL MAROON COLORED STOOL. NOTIFIED. NO NEW ORDERS AT THIS TIME. PT HAVING AM LABS DRAWN AT THIS TIME. WILL CONTINUE TO MONITOR.
--- NOTE | 2020-04-21 06:16 | PC.NURSE ---
ORDERED IM REGLAN FOR PT FOR N/V. PT SLEEPING WHEN RN WENT INTO ROOM TO ASK PT IF SHE WAS OK WITH AN IM INJECTION. PT APPEARS CONFORTABLE AT THIS TIME. CALL GEIGER IN REACH.
[2020-04-21 07:45] VITALS: BP 113/60; PULSE 105; RESP 20; TEMP 36.8; O2SAT 92
--- NOTE | 2020-04-21 08:26 | P.PNGS_ITS ---
Subjective Subjective Interval history: feels better this morning had nausea and dry heaves last night Physical Exam Vital Signs: Vital Signs: Vital Signs Temp Pulse Resp BP Pulse Ox 04/21/20 07:45 98.2 F 105 H 20 113/60 92 04/21/20 04:00 96.7 F L 100 20 148/60 H 97 04/20/20 23:47 97.5 F 110 H 18 114/73 04/20/20 19:54 98.0 F 84 20 135/85 92 04/20/20 12:00 98.0 F 87 20 130/86 90 L 04/20/20 09:00 110 H 133/78 Body Mass Index 30.4 Const: Other: looks frail but much more comfortable than yesterday Cardio: Rhythm: regular rhythm GI: Other: drains in place Palpation (GI): Soft to palpation and no guarding Progress Note: A&P Assessment and plan (1) Nausea & vomiting: Problem details: better this morning PICC line abd soft WBC still rising no fever CT reviewed with radiologist - persistent inflammatory changes near GB, RUQ, no abscess, markedly enlarged LN suspicious for neoplastic process long discussion with daughter Aniyah about above - no invasive surgical measures, ok for PICC line Zofran and Phenergan for symptom relief will continue to follow Status: Acute Assessment and Plan: Chemistry 04/19/20 04/20/20 05:36 17:21 Sodium 134 L 131 L Potassium 4.3 5.0 Carbon Dioxide 17 L 13 L BUN 23 H 32 H Creatinine 1.17 1.83 H Calcium 7.8 L 8.0 L Hematology 04/19/20 04/20/20 05:36 17:19 WBC 23.9 H 31.4 H* Hgb 9.5 L 9.5 L Plt Count 266 D 235 Fall Risk Details Current Medications: Current Medications Generic Name Dose Route Start Last Admin Trade Name Freq PRN Reason Stop Dose Admin Alprazolam 0.25 mg 04/17/20 10:15 04/21/20 04:47 Alprazolam 0.25 Mg Tablet PO 0.25 mg TID PRN Administration anxiety Atorvastatin Calcium 40 mg 04/17/20 21:00 04/20/20 22:14 Atorvastatin Calcium 40 Mg Tablet PO 40 mg BEDTIME DEE Administration Docusate Sodium 100 mg 04/16/20 21:47 Docusate Sodium 100 Mg Capsule PO DAILY PRN Constipation Doxycycline Hyclate 100 mg 04/16/20 22:00 04/20/20 22:14 Doxycycline Hyclate 100 Mg Tablet PO 100 mg Q12H DEE Administration Piperacillin Sod/Tazobactam 50 mls @ 100 mls/hr 04/20/20 15:00 04/21/20 03:03 Sod 3.375 gm/ Sodium Chloride IV Not Given Q6H DEE Dextrose/Sodium Chloride 1,000 mls @ 80 mls/hr 04/20/20 15:45 04/21/20 03:03 D5ns IVCONT Not Given .[id number] DEE Levothyroxine Sodium 88 mcg 04/18/20 06:00 04/21/20 05:29 Levothyroxine Sodium 88 Mcg Tablet PO Not Given DAILY@0600 DEE Metoprolol Succinate 100 mg 04/17/20 09:00 04/20/20 09:00 Metoprolol Succinate Er 100 Mg Tab.Er.24h PO 100 mg DAILY DEE Administration Protocol Morphine Sulfate 7.5 mg 04/16/20 21:47 04/21/20 04:47 Morphine Sulfate Immed Release 15 Mg Tablet PO 7.5 mg Q6H PRN Administration Pain, Severe (Pain Scale 7-10) Ondansetron HCl 4 mg 04/16/20 21:47 04/20/20 13:26 Ondansetron Hcl 4 Mg/2 Ml Vial IVPUSH 4 mg Q8H PRN Administration Nausea and Vomiting Ondansetron HCl 4 mg 04/20/20 11:55 Ondansetron Hcl 4 Mg/2 Ml Vial IVPUSH Q8H PRN Nausea and Vomiting Pharmacy Consult 1 each 04/16/20 17:13 Consult Rx Perform Med Rec MISCELLANE ONCE PRN Consult order Sodium Chloride 3 ml 04/17/20 00:00 04/20/20 22:14 0.9 % Sodium Chloride Flush 3 Ml Syringe IVFLUSH 3 ml QSHIFT [facility] Administration Time Spent With Patient Time: Total time spent is greater than 50% in coordination of care (as documented) at patient's floor/unit and/or counseling patient: Time with patient: 15 - 24 minutes
[2020-04-21] MEDS: Metoprolol Succinate ER 100 MG TAB.ER.24H PO (10:13)
[2020-04-21] MEDS: Metoclopramide HCl 10 MG/2 ML VIAL 5 MG IM (10:13)
[2020-04-21 11:22] VITALS: BP 113/58; PULSE 88; RESP 20; TEMP 36.6; O2SAT 92
--- NOTE | 2020-04-21 12:59 | MHC.CM.PN ---
Patient is on 2 liters O2 via NC, also started on IV flds and IV zosyn. Waiting for surgical and GI consults. Discharge plan is [facility] via BLS transport. CM will continue to follow patient for discharge needs.
--- NOTE | 2020-04-21 15:33 | P.PNIM_ITS ---
Subjective Subjective Date of Service: 04/21/20 Interval History: Patient seen and examined at bedside patient reported nausea and vomiting patient was depressed Constitutional Constitutional: Reports poor appetite and Reports weakness Cardiovascular Cardiovascular: Denies chest pain Gastrointestinal Gastrointestinal: Reports vomiting Physical Exam Vital Signs: Vital Signs: Vital Signs Temp Pulse Resp BP Pulse Ox 04/21/20 11:22 97.9 F 88 20 113/58 L 92 04/21/20 07:45 98.2 F 105 H 20 113/60 92 04/21/20 04:00 96.7 F L 100 20 148/60 H 97 04/20/20 23:47 97.5 F 110 H 18 114/73 04/20/20 19:54 98.0 F 84 20 135/85 92 Body Mass Index 30.4 General: AO X 3, anxious, juandiced Resp: CTA bilateral CVS: S1,S2,RRR GI: soft, non tender, non distended, tubes in place Neuro: motor grossly intact Psych: anxious Const: General: alert, awake and ill appearing Orientation/consciousness: patient oriented x3 HENMT: Head: Yes normocephalic and Yes atraumatic Eyes: Sclerae: scleral abnormal ( scleral icterus) Pupils: Equal, round and reactive pupils present EOM: EOMs intact bilaterally Resp: Effort & Inspection: normal respiratory effort, no respiratory distress and no use of accessory muscles Cardio: Other: irregularly irregular rhythm Rhythm: regular rhythm GI: Other: biliary drainage catheter with small amount of bilious in bag Inspection: Yes distended Palpation (GI): Soft to palpation and Tenderness to palpation present (GI) in the RUQ Skin: General skin exam: jaundice Neuro: General: patient oriented x3 Cranial nerves: Yes Equal, round and reactive pupils present Objective Data Current Medications Generic Name Dose Route Start Last Admin Trade Name Freq PRN Reason Stop Dose Admin Alprazolam 0.25 mg 04/17/20 10:15 04/21/20 04:47 Alprazolam 0.25 Mg Tablet PO 0.25 mg TID PRN Administration anxiety Atorvastatin Calcium 40 mg 04/17/20 21:00 04/20/20 22:14 Atorvastatin Calcium 40 Mg Tablet PO 40 mg BEDTIME DEE Administration Docusate Sodium 100 mg 04/16/20 21:47 Docusate Sodium 100 Mg Capsule PO DAILY PRN Constipation Doxycycline Hyclate 100 mg 04/16/20 22:00 04/21/20 10:13 Doxycycline Hyclate 100 Mg Tablet PO 100 mg Q12H [facility] Administration Piperacillin Sod/Tazobactam 50 mls @ 100 mls/hr 04/20/20 15:00 04/21/20 10:14 Sod 3.375 gm/ Sodium Chloride IV Not Given Q6H [facility] Dextrose/Sodium Chloride 1,000 mls @ 80 mls/hr 04/20/20 15:45 04/21/20 03:03 D5ns IVCONT Not Given .[id number] [facility] Levothyroxine Sodium 88 mcg 04/18/20 06:00 04/21/20 05:29 Levothyroxine Sodium 88 Mcg Tablet PO Not Given DAILY@0600 [facility] Metoprolol Succinate 100 mg 04/17/20 09:00 04/21/20 10:13 Metoprolol Succinate Er 100 Mg Tab.Er.24h PO 100 mg DAILY [facility] Administration Protocol Morphine Sulfate 7.5 mg 04/16/20 21:47 04/21/20 04:47 Morphine Sulfate Immed Release 15 Mg Tablet PO 7.5 mg Q6H PRN Administration Pain, Severe (Pain Scale 7-10) Ondansetron HCl 4 mg 04/16/20 21:47 04/20/20 13:26 Ondansetron Hcl 4 Mg/2 Ml Vial IVPUSH 4 mg Q8H PRN Administration Nausea and Vomiting Ondansetron HCl 4 mg 04/20/20 11:55 Ondansetron Hcl 4 Mg/2 Ml Vial IVPUSH Q8H PRN Nausea and Vomiting Pharmacy Consult 1 each 04/16/20 17:13 Consult Rx Perform Med Rec MISCELLANE ONCE PRN Consult order Sodium Chloride 3 ml 04/17/20 00:00 04/21/20 10:14 0.9 % Sodium Chloride Flush 3 Ml Syringe IVFLUSH Not Given QSHIFT [facility] Labs CBC & Chem 7: 04/20/20 17:19 04/20/20 17:21 Microbiology Microbiology Results: Microbiology 04/16/20 14:20 Blood - Venous Blood Culture - Preliminary No growth after 48 hours. 04/16/20 14:20 Blood - Venous Blood Culture - Preliminary No growth after 48 hours. 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 GI bleed INR was high on admission, received vitamin K INR normalized to 1.7 no more bleeding hgb stable 9.5, now 9.7 GI following Elevated LFTs chronic due to recent cholecystitis/biliary obstruction, status post cholecystotomy tube and biliary drain during previous admission brushings from common hepatic duct show atypical cells present oncology appreciated patient is having abdominal pain and vomiting repeat CT abdomen yesterday shows no significant change except shows diffuse lymphadenopathy, seen by surgery, recommended no surgical intervention for now given worsening leukocytosis and abdominal pain started on IV Zosyn, patient has no IV access and difficult stick, Will get PICC line placement today for IV access surgery and GI following monitor LFTs acute kidney injury creatinine trended up to 1.85 likely secondary to dehydration and poor p.o. intake started on IV fluid , IV access was lost, PICC line ordered, will start IV fluids once PICC line placed monitor kidney function avoid nephrotoxins encourage p.o. intake resent respiratory infection received antibiotic currently no respiratory symptoms atrial fibrillation Rate controlled on metoprolol -Holding coumadin, probably will not be able to tolerate a/c moving forward diastolic CHF -lasix on hold HLD statin hypothyroidism -continue synthroid given patient depressed and refusing care on and off Will get psych consult for assessing capacity to make decision and managing depression dvt ppx - mechanical devices code status - DNR/DNI
[2020-04-21] MEDS: Lidocaine HCl 1 % 20 ML VIAL 10 ML SUBCUT (15:51)
[2020-04-21] MEDS: Piperacillin Sodium/Tazobactam 3.375 GM in 0.9 % Sodium Chloride 50 ML IV ×2 (15:56→21:20)
[2020-04-21] MEDS: 0.9 % Sodium Chloride Flush 3 ML SYRINGE IVFLUSH ×2 (15:57→21:21)
[2020-04-21] MEDS: Dextrose 5 % and 0.9 % NaCl 1,000 ML 80 ML IVCONT (15:57)
[2020-04-21 16:00] VITALS: BP 92/64; PULSE 120; RESP 20; TEMP 36; O2SAT 95
[2020-04-21] MEDS: 0.9 % Sodium Chloride Flush 10 ML SYRINGE 5 ML IVFLUSH ×2 (16:14→21:21)
[2020-04-21 16:26] LABS: Mean Corpuscular Volume 93.1 fL (80-98); NRBC Pct Auto 0.4 /100WBC (0.0-0.2)
[2020-04-21 16:46] LABS: Hematocrit 29.8 % (37-47); Hemoglobin 9.2 g/dl (12.0-16.0); Mean Corpuscular HGB Conc 30.9 g/dl (31.0-35.0); Mean Corpuscular Hemoglobin 28.8 pg (27.0-33.0); Mean Platelet Volume 11.3 fL (9.4-12.3); Platelet Count 215 X10*3/uL (160-400); Red Cell Distribution Width 20.1 % (11.0-16.0)
[2020-04-21 16:54] LABS: White Blood Count 32.1 X10*3/uL (4.8-10.8)
[2020-04-21 17:00] LABS: Anion Gap 22 (12-20); Blood Urea Nitrogen 44 mg/dL (9-16); Carbon Dioxide 14 mmol/L (22-29); Chloride 101 mmol/L (96-108); Creatinine Clr Calc Pharmacy 15.5; Estimated Glomerular Filt Rate 14; Glucose Random 131 mg/dL (60-115); Potassium 5.6 mmol/l (3.3-5.1); Sodium 131 mmol/L (135-145)
[2020-04-21 17:10] LABS: Band Neutrophils Percent 6 % (3-5); Lymphocytes Absolute Manual 1.6 X10*3/uL (0.6-4.8); Lymphocytes Percent Manual 5 % (20-40); Monocytes Absolute Manual 1.6 X10*3/uL (0.0-1.2); Monocytes Percent Manual 5 % (2-11); Neutrophils Absolute Manual 28.9 X10*3/uL (2.2-7.9); Neutrophils Percent Manual 84 % (45-73)
[2020-04-21 17:12] LABS: Platelet Estimate NORMAL (NORMAL); Platelet Morphology Comment NORMAL; RBC Morphology NORMAL
[2020-04-21 19:25] VITALS: BP 153/64; PULSE 83; RESP 20; TEMP 35.9; O2SAT 90
[2020-04-21] MEDS: ondansetron HCL 4 MG/2 ML VIAL IVPUSH (19:41)
[2020-04-21] MEDS: Atorvastatin Calcium 40 MG TABLET PO (21:20)
[2020-04-22] VITALS: BP 148/76; PULSE 115; RESP 20; TEMP 36.8; O2SAT 92
[2020-04-22] MEDS: Morphine Sulfate 2 MG/ML CARTRIDGE 1 MG IVPUSH (00:12)
[2020-04-22] MEDS: Piperacillin Sodium/Tazobactam 3.375 GM in 0.9 % Sodium Chloride 50 ML IV (02:23)
[2020-04-22 04:00] VITALS: PULSE 88; RESP 22; TEMP 37
[2020-04-22] MEDS: Dextrose 5 % and 0.9 % NaCl 1,000 ML 80 ML IVCONT (04:06)
[2020-04-22 04:23] VITALS: BP 56/0; O2SAT 94
--- NOTE | 2020-04-22 04:41 | PC.NURSE ---
UNABLE TO OBTAIN BP BY MACHINE AND MANUALLY. PULSES WEAK AND THREADY. SBP 56 BY DOPPLER. UNABLE TO OBTAIN DIASTOLIC. MD NOTIFIED. PT RECEIVING 500CC NS BOLUS. WILL RECHECK BP IN 30 MINS AND NOTIFY .
[2020-04-22] MEDS: 0.9 % Sodium Chloride 500 ML 999 ML IVCONT (04:45)
--- NOTE | 2020-04-22 04:59 | ECG_ITS ---
Test Reason : CODE BLUE Blood Pressure : / mmHG Vent. Rate : 029 BPM Atrial Rate : 090 BPM P-R Int : 000 ms QRS Dur : 174 ms QT Int : 502 ms P-R-T Axes : 000 040 016 degrees QTc Int : 348 ms Atrial fibrillation with slow ventricular response Right bundle branch block Nonspecific ST abnormality Inferior leads 2.6 sec pause Abnormal ECG Compare to previous EKG 16-Apr-2020 Significant changes have occurred Clinical Correlation Advised Referred By: Aileen Martínez Electronically Signed By:JULIAN OLIVEROS MD
--- NOTE | 2020-04-22 05:14 | PM.EVENT ---
Event Note Event Note: RR called around 05:05 am as BP of the patient was unobtainable. I assessed the patient at the bedside, no pulse is audible, no breath movements. EKG obtained shows PEA. Time of 05:09 am. Family notified Rudy Toro.
--- NOTE | 2020-04-22 05:27 | PC.NURSE ---
BEFORE BOLUS WAS COMPLETE PTS HR DROPPED TO 30S AFIB ON THE MONITOR. UPON ARRIVL TO THE ROOM PT HAD NO PALPABLE PULSE OR PALPABLE/AUDIBLE BLOOD PRESSURE. RESPIRATIONS 0. MD NOTIFIED AND CAME TO FLOOR. EKG DONE FOR CONFIRMATION AND SHOWED PEA. FAMILY NOTIFIED BY MD. [facility] CALLED PER PROTOCOL. REFERENCE NUMBER [id number]. CURRENTLY AWAITING FAMILY TO ARRIVE.
--- NOTE | 2020-04-22 09:09 | P.DN_ITS ---
Discharge Sum: Prov Provider Primary care physician: Lex Velazco MD Consults: 04/16/20 21:47 Consult to Hematology / Oncology Routine Consulting Provider: Radhika Dueñas Reason for consultation: atypical cells present from hepatic stricture brushings; ?ongoing managment Has provider been notified: No Consult to Physician Routine Consulting Provider: Dino Paredes Reason for consultation: gib 04/19/20 06:22 Consult to General Surgery Routine Consulting Provider: Ray Rae Reason for consultation: family requesting follow up, biliary obstruction 04/21/20 08:48 Consult to Psychiatry Routine Consulting Provider: [facility] Reason for consultation: refusing treatment ,evulate for competency evualation Discharge Sum: Diag Contributing Factors (1) Gastrointestinal bleed: (2) Abnormal LFTs: (3) Nausea & vomiting: (4) Leukocytosis: (5) HTN (hypertension): (6) Hypothyroid: Discharge Sum: Summary Date and Time Date of admission: 04/16/20 19:56 Date of : 04/22/20 Time of : 05:09 Summary Details: HPI 84-year-old female with a history of atrial fibrillation on Coumadin who was sent to the emergency department today due to rectal bleeding. Patient was discharged on April 14 after admission for GI bleeding in the setting of supratherapeutic INR and accidental Coumadin overdose. She underwent EGD which showed evidence of gastritis but no active bleeding. She was discharged to residential facility with Coumadin on hold for additional weak. Her INR was checked yesterday and noted to be 8 despite not taking any Coumadin. She was given 2.5 mg of oral vitamin K. today patient had episode of epistaxis as well as multiple episodes of rectal bleeding. Patient denies any vomiting, fever, chills. Lab work in the emergency department revealed leukocytosis of 23.2 and elevated LFTs which are at the patient's baseline. Her H/H was stable compared to discharge. She has remained hemodynamically stable. Previous admission on March 10 for acute on chronic cholecystitis. Cholecystostomy tube was placed by IR guidance on March 11. She had an uncomplicated hospital course was discharged home with visiting nurses on March 13. She was discharged with a course of Augmentin. She had been feeling well until SundayMarch 19. She returned to the ED with decreased appetite, decreased p.o. intake and generalized pruritus. Lab work was significant for acute kidney injury with a serum creatinine of 2.65, hypokalemia and lactic acidosis. Her LFTs were noted to be significantly elevated in obstructive pattern. She underwent a CAT scan of the abdomen which showed dilated and inflammatory changes and thickening around the gallbladder causing likely partial CBD obstruction. An ERCP was attempted but unable to be completed due to difficult anatomy. She underwent an MRCP which showed questionable stricture. She was transferred to [facility] where an ERCP was attempted but also unable to be completed. She underwent IR biliary drain placement and was discharged home on March 31 with brushings of biliary stricture pending. hospital course 84-year-old female with multiple medical problem initially admitted with GI bleed , patient received vitamin K, hemoglobin remained stable, GI was consulted recommended medical management, Coumadin was remain held during the hospitalist patient was also found to have chronically elevated LFT due to recent cholecystitis/biliary obstruction, patient had cholecystotomy tube and biliary drain from previous hospitalizations, CT abdomen and pelvis done on admission shows gallbladder wall thickening and biliary ductal dilatation similar compared to previous CT, CT abdomen shows new lymphadenopathy and small ascites, gastroenterology and surgery was consulted recommended no surgical intervention and recommended continue antibiotic, patient's leukocytosis was worsening and continues to have elevated LFTs , patient was switched to IV antibiotic Zosyn broader coverage, patient has CBD stricture, brushing done at [facility] during previous admission shows atypical cells, oncology was consulted, patient continues to have poor p.o. intake, patient was refusing to eat and drink, patient was having nausea and vomiting, CT abdomen was repeated shows dizzy diffuse lymphadenopathy and biliary dilatation similar to previous CT scan, patient also has poor IV access, PICC line was placed, patient developed acute kidney injury secondary to poor p.o. intake, goals of care discussed with patient and family, initially patient decided for comfort care and later decided continue current management, patient was continued on IV fluid and antibiotic, patient was found to be unresponsive on 04/22 around 05:00 , found to be bradycardic on monitor, and later asystole, patient was DNR DNI resuscitation was not attempted, patient was pronounced on 04/22 20 at 05:09, family notified Additional Data Attending physician: Jesus Traore MD
--- NOTE | 2020-04-22 11:11 | PC.NURSE ---
PT AT BEDSIDE. COMFORT CART OFFERED AND PROVIDED. SON ALSO ARRIVAED LATER IN THE MORNING AND UPDATED. PREVIOUS RN HAD ALREADY PROVIDED ARRANGEMENTS INFO AND CALLED [facility]. POSTMORTEM CARE TO BE COMPLETED. RN TORSION [employer] M[employer]TER AWARE OF PENDING MOVE TO [facility].
== END 2020-04-22 13:15 | disposition expired | DRG 378 ==
LOC: HO.ED 16:32 → HO.IMC 20:20
PROVIDERS: Internal Medicine; Nurse Practitioner Family; Physician Assistant Medical; Admitting Provider Internal Medicine; Emergency Provider Emergency Medicine; PCP Internal Medicine; Visit Provider Internal Medicine
DX: K92.2 Gastrointestinal hemorrhage, unspecified (principal); I50.32 Chronic diastolic (congestive) heart failure; R79.1 Abnormal coagulation profile; I48.91 Unspecified atrial fibrillation; E03.9 Hypothyroidism, unspecified; Z85.3 Personal history of malignant neoplasm of breast; Z87.891 Personal history of nicotine dependence; Z79.01 Long term (current) use of anticoagulants; Z79.899 Other long term (current) drug therapy; Z66 Do not resuscitate
CPT/HCPCS: 36415; 36573; 71045; 74176; 74177; 76942; 80048; 80053; 80076; 82272; 83605; 83735; 85007; 85025; 85027; 85610; 86850; 87040; 93005; 96374; 99222; 99284; 99285; J1170; J2270; J2405; J2765